=== PATIENT | male | born 1960 | race Caucasian/White ===

== ENCOUNTER → 2016-10-17 | Outpatient (CLI) | payer OTHER | LOC: BMCIMAGING 15:54 | PROVIDERS: ATTEND Internal Medicine | DX: R50.9 Fever, unspecified (principal); R11.10 Vomiting, unspecified; K76.0 Fatty (change of) liver, not elsewhere classified ==

== ENCOUNTER 2016-11-10 18:51 | Emergency (ER) | payer OTHER ==
[2016-11-10 18:55] VITALS: RESP 16; TEMP 98.1
--- NOTE | 2016-11-10 19:38 | EDPHY ---
H & P Time Seen by Provider: 11/10/16 19:30 HPI/ROS: CHIEF COMPLAINT: Left toe pain HISTORY OF PRESENT ILLNESS: Swelling for the last 2 weeks with a callus on the top and an abrasion laterally. Pain and swelling over the last 24 hours. REVIEW OF SYSTEMS: No fever or chills and no known trauma PAST MEDICAL HISTORY: Negative for diabetes. Intracranial hemorrhage, depression, hypertension, perforated ulcer. History of alcoholism. Social history: Primary care is Dr. Stallings General Appearance: Alert and conversant, cooperative. Left 2nd toe has redness swelling and tenderness to palpation. No gangrene or d dark discoloration or bruising. No ecchymosis or blister or eschar. No crepitus. He can move it and has preserved sensation and capillary refill. No proximal redness or lymphangitis. Emergency Department course/MDM: Plan for x-ray, hard-soled shoe. Likely localized cellulitis. Bactrim, Keflex, primary care follow-up. Smoking Status: Never smoked Constitutional: Initial Vital Signs Temperature (C) 36.7 C 11/10/16 18:54 Heart Rate 87 11/10/16 18:54 Respiratory Rate 16 11/10/16 18:54 Blood Pressure 147/88 H 11/10/16 18:54 O2 Sat (%) 95 11/10/16 18:54 O2 Delivery Mode Room Air Allergies/Adverse Reactions: No Known Allergies Allergy (Verified 11/10/16 18:53) Home Medications: Medication Instructions Recorded Citalopram [CeleXA 20 MG] 20 mg PO DAILY 11/29/13 buPROPion SR [Wellbutrin 150mg SR 150 mg PO 0900,1500 11/29/13 (*)] Cephalexin [Keflex] 500 mg PO QID #40 cap 11/10/16 Sulfamethox/Tmp 800/160 mg 1 tab PO BID@1000,2200 #20 tab 11/10/16 [Bactrim Ds] MDM/Departure - MDM Imaging Results: X-ray reviewed with Dr. Earl Scales, no gas or fracture. Imaging: I viewed and interpreted images myself - Depart Disposition: Home, Routine, Self-Care Clinical Impression: Cellulitis of toe of left foot Condition: Good Instructions: Cellulitis (ED) Additional Instructions: Follow-up with [facility] with your doctor or orthopedist next week for recheck. Prescriptions: Cephalexin [Keflex] 500 mg PO QID #40 cap Sulfamethox/Tmp 800/160 mg [Bactrim Ds] 1 tab PO BID@1000,2200 #20 tab Referrals: Nikunj Stallings MD [[facility] [place] - As per Instructions Mat Wilcox MD [Medical Doctor] - As per Instructions
[2016-11-10] MEDS ORDERED: CEPHALEXIN 500MG PREPACK#4 BTL TAKEHOME ONE (20:02)
[2016-11-10] MEDS ORDERED: SULFAMET/TMP DS PREPACK#2 BTL TAKEHOME ONE (20:02)
[2016-11-10 20:17] VITALS: BP 135/93; PULSE 73; O2SAT 90
== END 2016-11-10 20:17 | disposition home or self-care (01) ==
DX: L03.032 Cellulitis of left toe (principal)

== ENCOUNTER 2017-01-15 08:53 | Inpatient (IN) | payer OTHER ==
--- NOTE | 2017-01-15 09:02 | EDPHY ---
H & P Stated Complaint: wd seizure Time Seen by Provider: 01/15/17 08:53 HPI/ROS: CHIEF COMPLAINT: Seizure HISTORY OF PRESENT ILLNESS: The patient arrives by paramedics after a reported witnessed seizure at home. The patient has no recollection of these events. In the emergency department the patient is postictal and unable to provide much history. The patient does have a history of chronic alcoholism. The patient tells me he has 5-6 drinks a day. He is unaware if he has had a prior alcohol withdrawal seizure. The patient does endorse symptoms of tremor and confusion. He denies recent illness such as fever cough or congestion. The patient reports no recent medication changes. He does have prescriptions for both Wellbutrin and citalopram. He states he has been on these medications for some time. The patient states he is not cut back on his alcohol consumption recently. The patient states he is also not interested in sobriety. REVIEW OF SYSTEMS: A comprehensive 10 point review of systems is otherwise negative aside from elements mentioned in the history of present illness. Source: Patient Exam Limitations: No limitations - Personal History Current Tetanus/Diphtheria Vaccine: Unsure Current Tetanus Diphtheria and Acellular Pertussis (TDAP): Unsure Tetanus Vaccine Date: unknown - Medical/Surgical History Hx Asthma: No Hx Chronic Respiratory Disease: No Hx Diabetes: No Hx Cardiac Disease: No Hx Renal Disease: No Hx Cirrhosis: No Hx Alcoholism: No Hx HIV/AIDS: No Hx Splenectomy or Spleen Trauma: No Other PMH: alcoholism, intracranial hemorrhage, Depression,HTN. Perforated intestinal ulcer - Social History Smoking Status: Never smoked - Physical Exam Exam: General Appearance: Alert, tremulous, slightly confused and postictal Eyes: Pupils equal and round no pallor or injection ENT, Mouth: Mucous membranes moist Respiratory: There are no retractions, lungs are clear to auscultation Cardiovascular: Tachycardic Gastrointestinal: Abdomen is soft and nontender, no masses, bowel sounds normal Neurological: Alert and oriented x2, 5/5 strength all 4 extremities, patient is tremulous Skin: Warm and dry, no rashes Musculoskeletal: Neck is supple nontender Extremities: symmetrical, full range of motion Constitutional: Initial Vital Signs Temperature (C) 36.5 C 01/15/17 08:59 Heart Rate 74 01/15/17 08:59 Respiratory Rate 16 01/15/17 08:59 Blood Pressure 148/86 H 01/15/17 08:59 O2 Sat (%) 99 01/15/17 08:59 O2 Delivery Mode Nasal Cannula O2 (L/minute) 2 Allergies/Adverse Reactions: No Known Allergies Allergy (Verified 11/10/16 18:53) Home Medications: Medication Instructions Recorded Citalopram [CeleXA 20 MG] 20 mg PO DAILY 11/29/13 buPROPion SR [Wellbutrin 150mg SR 150 mg PO BID 11/29/13 (*)] Pramipexole Di-HCl [Mirapex 0.125 0.125 mg PO HS 01/15/17 mg (*)] Medical Decision Making ED Course/Re-evaluation: The patient presents to the ED after alcohol withdrawal seizure. The patient reportedly did cut back on his alcohol consumption yesterday. The patient received 2 mg of IV Ativan. The patient received 1 L of normal saline. The patient's laboratory studies are reviewed. I re-evaluated the patient at 10:30 a.m.: The patient continues to have fairly significant tremor and signs of ongoing alcohol withdrawal. He received an additional 1 mg dose of IV Ativan. The patient will require admission to the hospital for observation of his alcohol withdrawal. Consultation was made with the hospitalist service at 10:45 a.m.. The patient will be admitted to the step-down unit by Dr. Gaytan Differential Diagnosis: Differential diagnosis considered includes alcohol withdrawal, metabolic abnormality, dehydration, alcohol withdrawal seizure - Data Points Laboratory Results: Laboratory Results 01/15/17 09:15 01/15/17 09:15 01/15/17 01/15/17 01/15/17 09:15 09:15 09:15 WBC 8.15 10^3/uL 10^3/uL (3.80-9.50) RBC 4.45 10^6/uL 10^6/uL (4.40-6.38) Hgb 14.2 g/dL g/dL (13.7-17.5) Hct 40.7 % % (40.0-51.0) MCV 91.5 fL fL (81.5-99.8) MCH 31.9 pg pg (27.9-34.1) MCHC 34.9 g/dL g/dL (32.4-36.7) RDW 12.7 % % (11.5-15.2) Plt Count 192 10^3/uL 10^3/uL (150-400) MPV 9.8 fL fL (8.7-11.7) Neut % (Auto) 66.4 % % (39.3-74.2) Lymph % (Auto) 20.6 % % (15.0-45.0) [place] % (Auto) 10.6 % % (4.5-13.0) Eos % (Auto) 0.4 % L % (0.6-7.6) Baso % (Auto) 1.1 % % (0.3-1.7) Nucleat RBC Rel Count 0.0 % % (0.0-0.2) Absolute Neuts (auto) 5.42 10^3/uL 10^3/uL (1.70-6.50) Absolute Lymphs (auto) 1.68 10^3/uL 10^3/uL (1.00-3.00) Absolute Monos (auto) 0.86 10^3/uL H 10^3/uL (0.30-0.80) Absolute Eos (auto) 0.03 10^3/uL 10^3/uL (0.03-0.40) Absolute Basos (auto) 0.09 10^3/uL 10^3/uL (0.02-0.10) Absolute Nucleated RBC 0.00 10^3/uL 10^3/uL (0-0.01) Immature Gran % 0.9 % % (0.0-1.1) Immature Gran # 0.07 10^3/uL 10^3/uL (0.00-0.10) Sodium 138 mEq/L mEq/L (134-144) Potassium 4.4 mEq/L mEq/L (3.5-5.2) Chloride 102 mEq/L mEq/L (97-110) Carbon Dioxide 22 mEq/l mEq/l (22-31) Anion Gap 14 mEq/L mEq/L (8-16) BUN 8 mg/dL mg/dL (7-23) Creatinine 1.0 mg/dL mg/dL (0.7-1.3) Estimated GFR > 60 Glucose 184 mg/dL H mg/dL (70-100) Calcium 8.8 mg/dL mg/dL (8.5-10.4) Total Bilirubin 0.8 mg/dL mg/dL (0.1-1.4) Conjugated Bilirubin 0.4 mg/dL mg/dL (0.0-0.5) Unconjugated Bilirubin 0.4 mg/dL mg/dL (0.0-1.1) AST 192 IU/L H IU/L (17-59) ALT 100 IU/L H IU/L (21-72) Alkaline Phosphatase 147 IU/L H IU/L (38-126) Total Protein 7.3 g/dL g/dL (6.3-8.2) Albumin 3.8 g/dL g/dL (3.5-5.0) Lipase 97.0 IU/L IU/L (23-300) Ethyl Alcohol < 10 mg/dL mg/dL (0-10) Medications Given: Discontinued Medications Sodium Chloride (Ns) 1,000 mls @ 0 mls/hr IV EDNOW ONE; Wide Open PRN Reason: Protocol Stop: 01/15/17 09:04 Last Admin: 01/15/17 09:08 Dose: 1,000 mls Lorazepam (Ativan Injection) 1 mg IVP EDNOW ONE Stop: 01/15/17 09:04 Last Admin: 01/15/17 09:06 Dose: 1 mg Lorazepam (Ativan Injection) 2 mg IVP EDNOW ONE Stop: 01/15/17 10:49 Last Admin: 01/15/17 10:57 Dose: 2 mg Departure - Departure Disposition: [facility] Inpatient Acute Clinical Impression: Alcohol withdrawal Qualifiers: Complication of substance-induced condition: uncomplicated Qualified Code(s): F10.230 - Alcohol dependence with withdrawal, uncomplicated Withdrawal seizures Qualifiers: Complication of substance-induced condition: uncomplicated Qualified Code(s): F19.230 - Other psychoactive substance dependence with withdrawal, uncomplicated Condition: Fair
[2017-01-15] MEDS ORDERED: LORazepam 2 MG/ML INJ IVP ONE ×2 (09:03→10:48)
[2017-01-15] MEDS ORDERED: NS 1,000 ML IV ONE ×2 (09:03→11:54)
[2017-01-15 09:25] LABS: % IMMATURE GRANULYOCYTES 0.9 % (0.0-1.1); ABSOLUTE IMMATURE GRANULOCYTES 0.07 10^3/uL (0.00-0.10); ADD DIFF? NO; ADD MORPH? NO; ADD SCAN? NO; ATYPICAL LYMPHOCYTE FLAG 10 (0-99); FRAGMENT RBC FLAG 0 (0-99); HEMATOCRIT 40.7 % (40.0-51.0); HEMOGLOBIN 14.2 g/dL (13.7-17.5); LEFT SHIFT FLG 10 (0-99); LIPEMIA HEMOLYSIS FLAG 90 (0-99); MEAN CELL HEMOGLOBIN 31.9 pg (27.9-34.1); MEAN CELL HEMOGLOBIN CONCENTR. 34.9 g/dL (32.4-36.7); MEAN CELL VOLUME 91.5 fL (81.5-99.8); MEAN PLATELET VOLUME 9.8 fL (8.7-11.7); PLATELET CLUMPS FLAG 0 (0-99); PLATELET COUNT 192 10^3/uL (150-400); RED BLOOD CELL COUNT 4.45 10^6/uL (4.40-6.38); RED CELL DISTRIBUTION WIDTH 12.7 % (11.5-15.2)
[2017-01-15 09:40] LABS: ALANINE AMINOTRANSFERASE 100 IU/L (21-72); ALBUMIN 3.8 g/dL (3.5-5.0); ALKALINE PHOSPHATASE 147 IU/L (38-126); ANION GAP 14 mEq/L (8-16); ASPARTATE AMINOTRANSFERASE 192 IU/L (17-59); BILIRUBIN,TOTAL 0.8 mg/dL (0.1-1.4); BILIRUBIN-CONJUGATED 0.4 mg/dL (0.0-0.5); BILIRUBIN-UNCONJUGATED 0.4 mg/dL (0.0-1.1); CALCIUM 8.8 mg/dL (8.5-10.4); CARBON DIOXIDE 22 mEq/l (22-31); CHLORIDE 102 mEq/L (97-110); GLOMERULAR FILTRATION RATE > 60; GLUCOSE 184 mg/dL (70-100); POTASSIUM 4.4 mEq/L (3.5-5.2); SODIUM 138 mEq/L (134-144); TOTAL PROTEIN 7.3 g/dL (6.3-8.2)
[2017-01-15 10:12] LABS: ETHANOL SERUM < 10 mg/dL (0-10)
[2017-01-15] MEDS ORDERED: ONDANSETRON DISINTEGRATING 4 MG TAB PO PRN (11:54)
[2017-01-15] MEDS ORDERED: ONDANSETRON 4 MG/2 ML VIAL IVP PRN (11:54)
[2017-01-15] MEDS ORDERED: chlordiazePOXIDE 25 MG CAP ONE (12:20)
[2017-01-15] MEDS: chlordiazePOXIDE 25 MG CAP PO SCH ×3 (12:23→20:02)
[2017-01-15] MEDS ORDERED: LORazepam 2 MG/ML INJ ONE (12:50)
[2017-01-15] MEDS: LORazepam 2 MG/ML INJ IVP PRN ×2 (12:55→21:13)
--- NOTE | 2017-01-15 13:37 | GHP ---
[f rep st] HISTORY AND PHYSICAL DATE OF ADMISSION: 01/15/2017 CHIEF COMPLAINT: Seizure. HISTORY OF PRESENT ILLNESS: A 56-year-old male with a history of alcohol abuse and depression who presents from home after a witnessed seizure by his and daughter. The patient does not recall the episode himself. The patient reports alcohol intake around 7 beers a day, does not recall if he took that same amount of alcohol in the 24 hours preceding. Denies any previous history of alcohol withdrawal seizures or seizures. Denies any hallucinations with withdrawal in the past, but has had serious withdrawal. Currently denies chest pain, shortness of breath. He is having high thoracic back pain. No pleuritic chest pain. No nausea. No vomiting. No diarrhea. No dysuria, hematuria, or lower extremity edema. Does not recall the episode of a seizure but was reported to have not fallen during the event. Denies any headache, vision changes, dysphagia, or subjective fevers or chills. PAST MEDICAL HISTORY: 1. Alcohol abuse with history of withdrawal in the past. 2. Traumatic fall during intoxication with an intracranial hemorrhage. 3. Perforated duodenal ulcer. 4. Depression. 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 Lives at home with his . Denies tobacco or illicit drugs. FAMILY HISTORY: Unknown; he is adopted. REVIEW OF SYSTEMS: Ten-point review of systems is negative with the exception of that reported in the HPI. PHYSICAL EXAMINATION: VITAL SIGNS: Blood pressure 151/92, heart rate 74, respiratory rate 16, 100% on 2 L, and 36.5. GENERAL: This is a middle-aged male in no acute distress. HEENT: Notable for dry mucous membranes. Eye exam is negative for any icterus. CARDIAC: The patient is regular rate and rhythm. No murmurs, gallops, or rubs. PULMONARY: Good respiratory effort. Clear to auscultation bilaterally. GASTROINTESTINAL: Positive bowel sounds. Abdomen is soft and nontender. MUSCULOSKELETAL: The patient has point tenderness in his high thoracic spine. No lower extremity edema is appreciated. His strength is intact throughout. NEUROLOGIC: The patient has tremor and tongue fasciculations on examination. PSYCHIATRIC: He is somnolent but cooperative. SKIN: Negative for any rashes. DATA: White count is 8.1, hematocrit 40.7, platelets of 192. AST of 192, ALT of 100, alk phos of 147. Blood glucose of 180. Ethyl alcohol measured at less than 10 in the emergency department. Creatinine is 1.0. Telemetry, which I personally reviewed and interpreted, shows sinus rhythm with normal rates in the 70s to 80s. ASSESSMENT AND PLAN: This is a 56-year-old male with a witnessed seizure. 1. Acute seizure: Based on his history, presumed to be alcohol withdrawal related, as his ethyl alcohol level is less than 10 during evaluation in the emergency department. We will treat the patient's acute withdrawal aggressively with seizure assessments and scheduled benzodiazepines. I do not think we need a neurology consult or the initiation of any antiepileptic at this time. Will follow his neurologic course in the ICU. 2. Acute alcohol withdrawal. The patient is quite tremulous and I think at the beginning of what will be a difficult withdrawal hospitalization. Have scheduled Librium, written for ganesh Romo, and have placed a Precedex order, as I suspect he will need it soon. The patient has gone through AA in the past and may be interested in resources once he is medically stable. Have scheduled Librium t.i.d. to avoid any ongoing seizure activity from withdrawal. 3. Alcohol abuse. As above. We will additionally treat with thiamine supplementation, CIWA monitoring and resources after the patient's through the worst of his withdrawal stay. 4. Alcoholic hepatitis. The patient has a small bump in his liver function tests, suspect related to acute alcohol toxicity. Can follow his liver function tests moving forward. INR last checked has been less than 1; will not check it at this time, as my suspicion is low that he has a highly elevated discriminant function. 5. Thoracic back pain - will check thoracic films to rule out compression fracture. 6. Prophylaxis with Lovenox. 7. Diet: Regular, unless his withdrawal progresses and he is unable to protect his airway. DISPOSITION: I expect greater than 2 midnights. I have discussed the case with the emergency room physician. The patient will be triaged to the intensive care unit for treatment of alcohol withdrawal. /[id number]/MODL MTDD
[2017-01-15] MEDS: DEXMEDETOMIDINE HCL 400 MCG in NS 100 ML IV SCH ×2 (14:31→22:07)
[2017-01-15] MEDS: buPROPion SR 150 MG TAB PO SCH (20:02)
[2017-01-16 03:59] LABS: % IMMATURE GRANULYOCYTES 0.3 % (0.0-1.1); ABSOLUTE IMMATURE GRANULOCYTES 0.02 10^3/uL (0.00-0.10); ADD DIFF? NO; ADD MORPH? NO; ADD SCAN? NO; ATYPICAL LYMPHOCYTE FLAG 0 (0-99); FRAGMENT RBC FLAG 20 (0-99); HEMATOCRIT 41.5 % (40.0-51.0); HEMOGLOBIN 14.2 g/dL (13.7-17.5); LEFT SHIFT FLG 10 (0-99); LIPEMIA HEMOLYSIS FLAG 90 (0-99); MEAN CELL HEMOGLOBIN 32.1 pg (27.9-34.1); MEAN CELL HEMOGLOBIN CONCENTR. 34.2 g/dL (32.4-36.7); MEAN CELL VOLUME 93.7 fL (81.5-99.8); MEAN PLATELET VOLUME 9.9 fL (8.7-11.7); PLATELET CLUMPS FLAG 0 (0-99); PLATELET COUNT 182 10^3/uL (150-400); RED BLOOD CELL COUNT 4.43 10^6/uL (4.40-6.38); RED CELL DISTRIBUTION WIDTH 12.8 % (11.5-15.2)
[2017-01-16 04:14] LABS: ANION GAP 10 mEq/L (8-16); CARBON DIOXIDE 26 mEq/l (22-31); CHLORIDE 104 mEq/L (97-110); CREATININE 0.9 mg/dL (0.7-1.3); GLOMERULAR FILTRATION RATE > 60; GLUCOSE 130 mg/dL (70-100); MAGNESIUM 1.7 mg/dL (1.6-2.3); POTASSIUM 3.6 mEq/L (3.5-5.2); SODIUM 140 mEq/L (134-144)
[2017-01-16] MEDS: DEXMEDETOMIDINE HCL 400 MCG in NS 100 ML IV SCH ×2 (07:56→21:06)
--- NOTE | 2017-01-16 10:41 | WOCRNPDOC ---
WOCRN Advanced Assessment Note - Skin Integrity Problem, Advanced Assess Right Medial Foot Dressing Type: Open to Air Exudate Amount: None Wound Bed Constitution: Dried Exudate Site Measurement - Head-to-Toe Length X Width X Depth (cm): 1x1x0.1 Skin Integrity Problem Comment: Partial thickness Category 3 skin tear. No concerns. Wound care will sign off.
[2017-01-16] MEDS ORDERED: Herbals/Supplements -Info Only PO SCH (11:00)
[2017-01-16] MEDS: chlordiazePOXIDE 25 MG CAP PO SCH ×3 (11:08→20:47)
[2017-01-16] MEDS: buPROPion SR 150 MG TAB PO SCH ×2 (11:08→20:47)
[2017-01-16] MEDS: MULTIVITAMINS 1 EACH TAB PO SCH (11:08)
[2017-01-16] MEDS: CITALOPRAM 20 MG TAB PO SCH (11:08)
[2017-01-16] MEDS: ENOXAPARIN 40 MG/0.4 ML SYR SC SCH (11:14)
[2017-01-16] MEDS: LIDOCAINE 5% 1 EA PATCH TD SCH (11:14)
--- NOTE | 2017-01-16 16:01 | HOSPPROG ---
Hospitalist Progress Note Assessment/Plan: assessment: 56-year-old male presents with acute alcohol withdrawal seizure Plan: 1. alcohol withdrawal seizure. Acute, witnessed by , placing him at high risk for recurrent seizure if left untreated -hold on antiepileptic and treat for acute alcohol withdrawal -if experiences recurrent seizures, initiate antiepileptic and consult with Neurology - placed on scheduled benzodiazepine given his high risk of recurrence and taper during this hospitalization -continue seizure precautions 2. acute alcohol withdrawal. Evidence by tremulousness, disorientation, hallucination, alcohol level negative on presentation -patient has desire to maintain sobriety - counseled the patient that the sobriety would be a good choice for him at this juncture, will continue to support him in this endeavor - discussed with Larissa Napier, patient is interested in counseling with her tomorrow -continue on scheduled Librium, taper to twice daily tomorrow, then once daily thereafter -continue as needed Ativan for breakthrough -wean off of Precedex drip, currently managing patient's anxiety well 3. alcoholic hepatitis. Acute, abdominal pain is subsiding, monitor transaminitis 4. compression fracture. suspect chronic, place Lidoderm patch and use as needed nonsteroidal anti-inflammatory medication Diet. Regular Prophylaxis. High risk patient given mobility, Lovenox 40 Code. Full Disposition. Anticipated discharge uncertain this time, continuing to require ICU level of care given Precedex drip Subjective: counseled patient regarding alcohol cessation, reoriented him to his surroundings Objective: Vital Signs Temp Pulse Resp BP Pulse Ox 36.8 C 61 12 105/69 99 01/16/17 08:00 01/16/17 15:00 01/16/17 15:00 01/16/17 14:00 01/16/17 15:00 Laboratory Results 01/16/17 03:45 01/16/17 03:45 01/15/17 01/16/17 01/17/17 05:59 05:59 05:59 Intake Total 2797 Output Total 8345 Balance -448 - Time Spent With Patient Time Spent with Patient: greater than 35 minutes Time Spent with Patient: Greater than 35 minutes spent on this patients care, greater than 50% of time spent counseling, educating, and coordinating care regarding the above mentioned plan. - Physical Exam Constitutional: not in pain, chronically ill appearing, No no apparent distress ( mildly distressed), No uncomfortable Cardiovascular: No systolic murmur, No irregularly irregular, No tachycardia, No edema Respiratory: no respiratory distress, no rales or rhonchi, clear to auscultation Gastrointestinal: normoactive bowel sounds, soft, non-tender abdomen ( in right upper quadrant), no palpable masses, No distension Skin: other ( some scattered abrasions) Neurologic: AAOx3, sensation intact bilaterally, No asterixes ( tremulousness bilateral upper extremities) Psychiatric: anxious, other ( concentration 7/7, naming 3/3), No agitated ICD10 Worksheet Patient Problems: Problems Problem Status Onset Perforation of duodenal ulcer Acute Intracranial hemorrhage Acute Alcohol intoxication Acute Alcoholism Acute Alcohol withdrawal Acute Withdrawal seizures Acute
[2017-01-16] MEDS: PATCH REMOVAL 1 EA PATCH TD SCH (20:48)
[2017-01-16] MEDS: LORazepam 2 MG/ML INJ IVP PRN (20:53)
[2017-01-16] MEDS: HALOPERIDOL LACT 5 MG/ML INJ IVP PRN (21:24)
[2017-01-17] MEDS: LORazepam 2 MG/ML INJ IVP PRN ×5 (00:05→23:23)
[2017-01-17] MEDS: DEXMEDETOMIDINE HCL 400 MCG in NS 100 ML IV SCH ×4 (02:04→22:11)
[2017-01-17 05:33] LABS: % IMMATURE GRANULYOCYTES 0.6 % (0.0-1.1); ABSOLUTE IMMATURE GRANULOCYTES 0.05 10^3/uL (0.00-0.10); ADD DIFF? NO; ADD MORPH? NO; ADD SCAN? NO; ATYPICAL LYMPHOCYTE FLAG 0 (0-99); FRAGMENT RBC FLAG 0 (0-99); HEMATOCRIT 40.4 % (40.0-51.0); HEMOGLOBIN 13.7 g/dL (13.7-17.5); LEFT SHIFT FLG 10 (0-99); LIPEMIA HEMOLYSIS FLAG 90 (0-99); MEAN CELL HEMOGLOBIN 31.8 pg (27.9-34.1); MEAN CELL HEMOGLOBIN CONCENTR. 33.9 g/dL (32.4-36.7); MEAN CELL VOLUME 93.7 fL (81.5-99.8); MEAN PLATELET VOLUME 9.9 fL (8.7-11.7); PLATELET CLUMPS FLAG 20 (0-99); PLATELET COUNT 155 10^3/uL (150-400); RED BLOOD CELL COUNT 4.31 10^6/uL (4.40-6.38); RED CELL DISTRIBUTION WIDTH 12.7 % (11.5-15.2)
[2017-01-17 05:54] LABS: ANION GAP 11 mEq/L (8-16); CALCIUM 8.6 mg/dL (8.5-10.4); CARBON DIOXIDE 26 mEq/l (22-31); CHLORIDE 105 mEq/L (97-110); CREATININE 0.9 mg/dL (0.7-1.3); GLOMERULAR FILTRATION RATE > 60; GLUCOSE 112 mg/dL (70-100); MAGNESIUM 1.7 mg/dL (1.6-2.3); POTASSIUM 3.6 mEq/L (3.5-5.2); SODIUM 142 mEq/L (134-144)
[2017-01-17] MEDS: ENOXAPARIN 40 MG/0.4 ML SYR SC SCH (08:20)
[2017-01-17] MEDS: MULTIVITAMINS 1 EACH TAB PO SCH (08:20)
[2017-01-17] MEDS: buPROPion SR 150 MG TAB PO SCH ×2 (08:20→20:20)
[2017-01-17] MEDS: CITALOPRAM 20 MG TAB PO SCH (08:20)
[2017-01-17] MEDS: chlordiazePOXIDE 25 MG CAP PO SCH ×3 (08:20→21:04)
[2017-01-17] MEDS: LIDOCAINE 5% 1 EA PATCH TD SCH (08:21)
[2017-01-17] MEDS ORDERED: chlordiazePOXIDE 25 MG CAP PO SCH (09:00)
--- NOTE | 2017-01-17 16:08 | HOSPPROG ---
Hospitalist Progress Note Assessment/Plan: assessment: 56-year-old male presents with acute alcohol withdrawal seizure Plan: 1. alcohol withdrawal seizure. Acute, witnessed by EMT, placing him at high risk for recurrent seizure if left untreated -hold on antiepileptic and treat for acute alcohol withdrawal -if experiences recurrent seizures, initiate antiepileptic and consult with Neurology -placed on scheduled librium given his high risk of recurrence and taper during this hospitalization -continue seizure precautions 2. acute alcohol withdrawal. Evidence by tremulousness, disorientation, hallucination, alcohol level negative on presentation -patient has desire to maintain sobriety -patient's disorientation/somnolence is worse this AM -continue on scheduled Librium tid, taper to twice daily tomorrow, then once daily thereafter -continue as needed Ativan for breakthrough -continues to require precedex for safety -Larissa Napier counseled -I also counseled extensively, and attempted to asst her understanding of EtOH withdraw pathology, as she is having a difficult time processing her 's ailment, having a difficult time reconciling that his current state is not her fault, etc. 3. alcoholic hepatitis. Acute, abdominal pain subsided, monitor transaminitis 4. compression fracture. suspect chronic, place Lidoderm patch and use as needed nonsteroidal anti-inflammatory medication Diet. Regular Prophylaxis. High risk patient given mobility, Lovenox 40 Code. Full Disposition. Anticipated discharge uncertain this time, continuing to require ICU level of care given Precedex drip Subjective: patient is more disoriented and somewhat somnolent this morning having difficulty following commands Objective: Vital Signs Temp Pulse Resp BP Pulse Ox 36.6 C 66 19 102/65 98 01/17/17 11:57 01/17/17 15:00 01/17/17 14:00 01/17/17 15:00 01/17/17 15:00 Laboratory Results 01/17/17 05:24 01/17/17 05:24 01/16/17 01/17/17 01/18/17 05:59 05:59 05:59 Intake Total 2797 1719.8 1000 Output Total 3245 1575 Balance -448 144.8 1000 - Time Spent With Patient Time Spent with Patient: greater than 35 minutes Time Spent with Patient: Greater than 35 minutes spent on this patients care, greater than 50% of time spent counseling, educating, and coordinating care regarding the above mentioned plan. - Physical Exam Constitutional: uncomfortable, No no apparent distress ( mildly distress) Cardiovascular: No systolic murmur, No tachycardia, No edema Respiratory: other ( poor inspiratory and expiratory air movement, poor effort) , No expiratory wheeze, No inspiratory crackles, No bronchial breath sounds Gastrointestinal: normoactive bowel sounds, soft, non-tender abdomen, no palpable masses, No distension Neurologic: other ( visibly tremulous, alert awake oriented to person only) Psychiatric: encephalopathic, anxious, flat affect, other ( easily distractible , but redirectable), No agitated ICD10 Worksheet Patient Problems: Problems Problem Status Onset Perforation of duodenal ulcer Acute Intracranial hemorrhage Acute Alcohol intoxication Acute Alcoholism Acute Alcohol withdrawal Acute Withdrawal seizures Acute
--- NOTE | 2017-01-17 17:39 | GCON ---
[f rep st] CONSULTATION PULMONARY/CRITICAL CARE CONSULTATION DATE OF CONSULTATION: 01/17/2017 REFERRING PHYSICIAN: Nic Maria MD REASON FOR REFERRAL: Evaluation and management of seizure, alcohol withdrawal, and hepatitis. HISTORY: The patient is a 56-year-old male with a history of alcohol abuse and depression who appar ently tried to stop drinking alcohol himself at home. He had a seizure on 01/15 witnessed by his wi fe and daughter and was brought into the emergency department where he was admitted to the hospital with presumed alcohol withdrawal seizure. Since then, he has had prominent symptoms of withdrawal, with CIWA scores greater than 20 at times. He currently is resting quite comfortably and denies any pain, agitation, or hallucinations. PAST MEDICAL HISTORY: 1. Long history of alcohol abuse with significant DTs in the past. 2. History of intracranial hemorrhage due to a fall while intoxicated. 3. Perforated duodenal ulcer. 4. Depression. MEDICATIONS: 1. Wellbutrin. 2. Celexa. ALLERGIES: None. 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 Lives with his . He denies tob acco. FAMILY HISTORY: Unknown. The patient is adopted. REVIEW OF SYSTEMS: A 10-point review of systems adds nothing to the history of present illness. PHYSICAL EXAMINATION: GENERAL: The patient is somnolent but arousable and answers simple questions appropriately. Blood pressure is 148/94 with a heart rate of 68. He is afebrile. Oxygen saturati ons are 98% on room air. HEENT: Normocephalic and atraumatic. No icterus. NECK: No adenopathy. Trachea is midline. CHEST: Clear to auscultation. CARDIAC: Regular rate and rhythm without murm ur. ABDOMEN: Soft, nontender. Bowel sounds are present. EXTREMITIES: No clubbing, cyanosis, or edema. NEURO: The patient is somnolent but arousable. He has a very mild tremor. His thought con tent appears normal, although he is not very verbal. He has no sensorimotor weakness. LABORATORY: Hemoglobin is 13.7. AST was 192, and ALT was 100 on admission. This has not been repe ated. Potassium is 3.6. Alcohol level was less than 10 at the time of admission. An x-ray of the thoracic spine shows an age indeterminate T12 compression fracture with minimal depression in the michel perior endplate. This is new since 2013. ASSESSMENT: 1. Acute alcohol withdrawal seizure. This was witnessed. The patient is currently being managed w ith Librium and Precedex, and is quite calm, although he was very agitated earlier today. 2. Acute alcohol withdrawal. 3. Hepatitis. This is likely acute on chronic alcoholic hepatitis. He denies pain. 4. Compression fracture. This is a partial compression fracture with preservation, for the most pa rt, of vertebral height. He has had some pain related to this. RECOMMENDATIONS: 1. Continue Precedex and scheduled p.o. Librium for withdrawal. 2. Continue Lovenox. 3. Haldol can be used for hallucinations. 4. Lidoderm patch and NSAIDs for back pain. I would avoid narcotics. 5. Repeat LFTs. /[id number]/MODL
[2017-01-17] MEDS: HALOPERIDOL LACT 5 MG/ML INJ IVP PRN (20:20)
[2017-01-17] MEDS: PATCH REMOVAL 1 EA PATCH TD SCH (21:04)
[2017-01-18] MEDS: hydrALAZINE 20 MG/ML VIAL IVP PRN (02:19)
[2017-01-18] MEDS: DEXMEDETOMIDINE HCL 400 MCG in NS 100 ML IV SCH ×2 (02:37→07:55)
[2017-01-18] MEDS: HALOPERIDOL LACT 5 MG/ML INJ IVP PRN ×4 (03:06→20:28)
[2017-01-18] MEDS: LORazepam 2 MG/ML INJ IVP PRN ×2 (04:12→23:21)
[2017-01-18 05:44] LABS: % IMMATURE GRANULYOCYTES 0.8 % (0.0-1.1); ABSOLUTE IMMATURE GRANULOCYTES 0.08 10^3/uL (0.00-0.10); ADD DIFF? NO; ADD MORPH? NO; ADD SCAN? NO; ATYPICAL LYMPHOCYTE FLAG 0 (0-99); FRAGMENT RBC FLAG 0 (0-99); HEMATOCRIT 43.8 % (40.0-51.0); HEMOGLOBIN 14.9 g/dL (13.7-17.5); LEFT SHIFT FLG 10 (0-99); LIPEMIA HEMOLYSIS FLAG 90 (0-99); MEAN CELL HEMOGLOBIN 31.4 pg (27.9-34.1); MEAN CELL VOLUME 92.4 fL (81.5-99.8); PLATELET CLUMPS FLAG 0 (0-99); PLATELET COUNT 177 10^3/uL (150-400); RED BLOOD CELL COUNT 4.74 10^6/uL (4.40-6.38); RED CELL DISTRIBUTION WIDTH 12.6 % (11.5-15.2)
[2017-01-18 06:03] LABS: ALANINE AMINOTRANSFERASE 60 IU/L (21-72); ALBUMIN 3.8 g/dL (3.5-5.0); ALKALINE PHOSPHATASE 96 IU/L (38-126); ANION GAP 15 mEq/L (8-16); ASPARTATE AMINOTRANSFERASE 55 IU/L (17-59); BILIRUBIN,TOTAL 0.9 mg/dL (0.1-1.4); BILIRUBIN-CONJUGATED 0.5 mg/dL (0.0-0.5); BILIRUBIN-UNCONJUGATED 0.4 mg/dL (0.0-1.1); CARBON DIOXIDE 24 mEq/l (22-31); CHLORIDE 102 mEq/L (97-110); CREATININE 0.8 mg/dL (0.7-1.3); GLOMERULAR FILTRATION RATE > 60; GLUCOSE 112 mg/dL (70-100); MAGNESIUM 1.5 mg/dL (1.6-2.3); POTASSIUM 4.2 mEq/L (3.5-5.2); SODIUM 141 mEq/L (134-144); TOTAL PROTEIN 7.5 g/dL (6.3-8.2)
[2017-01-18] MEDS: ENOXAPARIN 40 MG/0.4 ML SYR SC SCH (07:47)
[2017-01-18] MEDS: THIAMINE HCL 100 MG TAB PO SCH (07:47)
[2017-01-18] MEDS: MULTIVITAMINS 1 EACH TAB PO SCH (07:47)
[2017-01-18] MEDS: LIDOCAINE 5% 1 EA PATCH TD SCH (07:47)
[2017-01-18] MEDS: CITALOPRAM 20 MG TAB PO SCH (07:47)
[2017-01-18] MEDS: buPROPion SR 150 MG TAB PO SCH ×2 (07:47→20:29)
[2017-01-18] MEDS: chlordiazePOXIDE 25 MG CAP PO SCH (07:47)
[2017-01-18] MEDS: NAPROXEN SODIUM 220 MG TAB PO PRN ×2 (08:06→20:28)
--- NOTE | 2017-01-18 12:55 | PDINTPN ---
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 He's fairly sedated with PO scheduled Librium. Hepatitis: Likely EtOH induced. Resolved. Sz: No further seizures. Plan: Reduce Librium scheduled dose. Try Haldol for hallucinations. 01/18/17 12:58 Subjective: Sedated but intermittently agitated, denies pain Objective: Vital Signs Temp Pulse Resp BP Pulse Ox 36.6 C 60 12 120/60 94 01/17/17 20:00 01/18/17 09:52 01/18/17 09:52 01/18/17 09:52 01/18/17 09:52 Laboratory Results 01/18/17 05:30 01/18/17 05:30 01/17/17 01/18/17 01/19/17 05:59 05:59 05:59 Intake Total 1719.8 1407 Output Total 1575 675 Balance 144.8 732 Laboratory Tests 01/18/17 05:30 AST 55 ALT 60 Alkaline Phosphatase 96 Physical Exam - Physical Exam General Appearance: no apparent distress, No alert (somnolent but fidgeting and arousable) EENT: normal ENT inspection Neck: normal inspection Respiratory: lungs clear, normal breath sounds Cardiac/Chest: regular rate, rhythm, No edema Abdomen: normal bowel sounds, non-tender Skin: normal color, warm/dry Extremities: normal inspection Neuro/Psych: No alert, No normal mood/affect, No oriented x 3 (visual and auditory hallucinations), No motor weakness ICD10 Worksheet Patient Problems: Problems Problem Status Onset Alcohol withdrawal Acute Withdrawal seizures Acute Alcohol intoxication Acute Alcoholism Acute Intracranial hemorrhage Acute Perforation of duodenal ulcer Acute
[2017-01-18] MEDS ORDERED: chlordiazePOXIDE 25 MG CAP PO SCH (12:57)
--- NOTE | 2017-01-18 14:44 | HOSPPROG ---
Hospitalist Progress Note Assessment/Plan: assessment: 56-year-old male presents with acute alcohol withdrawal seizure Plan: 1. alcohol withdrawal seizure. Acute, witnessed by EMT, placing him at high risk for recurrent seizure if left untreated -HCT w/o ICH -hold on antiepileptic and treat for acute alcohol withdrawal -if experiences recurrent seizures, initiate antiepileptic and consult with Neurology -placed on scheduled librium given his high risk of recurrence and taper during this hospitalization (10mg tid) -continue seizure precautions 2. acute alcohol withdrawal. Evidence by tremulousness, disorientation, hallucination, alcohol level negative on presentation -patient has desire to maintain sobriety -patient more somnolent s/p librium dosing, reduce to 10mg tid and gauge effect , plan to reduce to bid dosing tomorrow if able -d/w Dr. Rodney on ICU rounds, agree to hold precedex and gauge effect, attempt to preferentially use haldol for hallucinations 3. alcoholic hepatitis. Acute, abdominal pain subsided, monitor transaminitis 4. compression fracture. suspect chronic, placed Lidoderm patch and use as needed nonsteroidal anti-inflammatory medication 5. acute encephalopathy. New problem to this provider, further w/u indicated. Evidenced by global brain dysfunction characterized as disorientation, confusion , agitation, somnolence, all of which is an acute change from his baseline and is likely multifactoral toxic-metabolic in setting of benzos, precedex, and EtOH withdraw -currently somnolent, attempting to reduce amount of w/d Rx in system and allow to clear from a med standpoint -remains safety risk to self, restraints required -with rising WBC and risk of aspiration, get CXR to r/o PNA Diet. Regular Prophylaxis. High risk patient given mobility, Lovenox 40 Code. Full Disposition. Anticipated discharge uncertain this time, continuing to require ICU level of care Subjective: Patient agitated overnight, received Librium this morning and became somnolent Objective: Vital Signs Temp Pulse Resp BP Pulse Ox 36.6 C 60 12 120/60 94 01/17/17 20:00 01/18/17 09:52 01/18/17 09:52 01/18/17 09:52 01/18/17 09:52 Laboratory Results 01/18/17 05:30 01/18/17 05:30 01/17/17 01/18/17 01/19/17 05:59 05:59 05:59 Intake Total 1719.8 1407 Output Total 1575 675 Balance 144.8 732 - Physical Exam Constitutional: no apparent distress, appears nourished, not in pain, unkempt, No uncomfortable Cardiovascular: regular rate and rhythym, no murmur, rub, or gallop, No irregularly irregular, No tachycardia, No edema Respiratory: reduced air movement (Bilateral bases), other (Poor inspiratory effort), No expiratory wheeze, No inspiratory crackles, No bronchial breath sounds Gastrointestinal: normoactive bowel sounds, soft, non-tender abdomen, no palpable masses, No guarding, No distension Psychiatric: other (Somnolent but arousable to tactile stimuli) ICD10 Worksheet Patient Problems: Problems Problem Status Onset Perforation of duodenal ulcer Acute Intracranial hemorrhage Acute Alcohol intoxication Acute Alcoholism Acute Alcohol withdrawal Acute Withdrawal seizures Acute
[2017-01-18] MEDS: PATCH REMOVAL 1 EA PATCH TD SCH (21:51)
[2017-01-18] MEDS ORDERED: MAGNESIUM SULF 1 GM/DEXTROSE 100 ML IV ONE (23:30)
[2017-01-19] MEDS: HALOPERIDOL LACT 5 MG/ML INJ IVP PRN (03:17)
[2017-01-19] MEDS: ACETAMINOPHEN 325 MG TAB PO PRN (03:17)
[2017-01-19] MEDS: NAPROXEN SODIUM 220 MG TAB PO PRN ×2 (04:22→16:48)
[2017-01-19 04:43] LABS: % IMMATURE GRANULYOCYTES 0.8 % (0.0-1.1); ABSOLUTE IMMATURE GRANULOCYTES 0.07 10^3/uL (0.00-0.10); ADD DIFF? NO; ADD MORPH? NO; ADD SCAN? NO; ATYPICAL LYMPHOCYTE FLAG 0 (0-99); FRAGMENT RBC FLAG 0 (0-99); HEMATOCRIT 38.4 % (40.0-51.0); HEMOGLOBIN 13.3 g/dL (13.7-17.5); LEFT SHIFT FLG 10 (0-99); LIPEMIA HEMOLYSIS FLAG 90 (0-99); MEAN CELL HEMOGLOBIN CONCENTR. 34.6 g/dL (32.4-36.7); MEAN CELL VOLUME 92.5 fL (81.5-99.8); MEAN PLATELET VOLUME 10.4 fL (8.7-11.7); PLATELET CLUMPS FLAG 0 (0-99); PLATELET COUNT 181 10^3/uL (150-400); RED BLOOD CELL COUNT 4.15 10^6/uL (4.40-6.38); RED CELL DISTRIBUTION WIDTH 12.9 % (11.5-15.2)
[2017-01-19 04:54] LABS: ALANINE AMINOTRANSFERASE 48 IU/L (21-72); ALBUMIN 3.2 g/dL (3.5-5.0); ALKALINE PHOSPHATASE 89 IU/L (38-126); ANION GAP 14 mEq/L (8-16); ASPARTATE AMINOTRANSFERASE 43 IU/L (17-59); BILIRUBIN,TOTAL 0.8 mg/dL (0.1-1.4); CALCIUM 8.5 mg/dL (8.5-10.4); CARBON DIOXIDE 21 mEq/l (22-31); CHLORIDE 101 mEq/L (97-110); CREATININE 0.9 mg/dL (0.7-1.3); GLOMERULAR FILTRATION RATE > 60; GLUCOSE 86 mg/dL (70-100); POTASSIUM 3.3 mEq/L (3.5-5.2); SODIUM 136 mEq/L (134-144); TOTAL PROTEIN 6.6 g/dL (6.3-8.2)
[2017-01-19] MEDS ORDERED: POTASSIUM CL 20 MEQ TAB PO ONE (08:19)
[2017-01-19] MEDS: CITALOPRAM 20 MG TAB PO SCH (08:55)
[2017-01-19] MEDS: THIAMINE HCL 100 MG TAB PO SCH (08:55)
[2017-01-19] MEDS: buPROPion SR 150 MG TAB PO SCH ×2 (08:55→21:06)
[2017-01-19] MEDS: MULTIVITAMINS 1 EACH TAB PO SCH (08:55)
[2017-01-19] MEDS: ENOXAPARIN 40 MG/0.4 ML SYR SC SCH (08:55)
[2017-01-19] MEDS: LIDOCAINE 5% 1 EA PATCH TD SCH (08:56)
--- NOTE | 2017-01-19 09:49 | PDINTPN ---
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 Resolved. Sz: No further seizures. Plan: ?Reduce Librium scheduled dose vs change to PRN. Increase activity. Probably can transfer to [facility] 01/18/17 12:58 01/19/17 09:48 Subjective: C/O bilateral foot pain that he attributes to "the convulsions". No hallucinations. Appetite improving. Still very unsteady/weak. Objective: Vital Signs Temp Pulse Resp BP Pulse Ox 36.7 C 79 17 128/76 H 95 01/19/17 08:00 01/19/17 08:00 01/19/17 08:00 01/19/17 08:00 01/19/17 08:00 Laboratory Results 01/19/17 04:27 01/19/17 04:27 01/18/17 01/19/17 01/20/17 05:59 05:59 05:59 Intake Total 1407 300 Output Total 675 300 Balance 732 0 Physical Exam - Physical Exam General Appearance: alert, no apparent distress EENT: normal ENT inspection Neck: normal inspection Respiratory: lungs clear, normal breath sounds Cardiac/Chest: regular rate, rhythm, No edema Abdomen: non-tender, soft Skin: normal color, warm/dry Extremities: normal inspection Neuro/Psych: alert, oriented x 3, motor weakness, No normal mood/affect (a bit sedated) ICD10 Worksheet Patient Problems: Problems Problem Status Onset Alcohol withdrawal Acute Withdrawal seizures Acute Alcohol intoxication Acute Alcoholism Acute Intracranial hemorrhage Acute Perforation of duodenal ulcer Acute
--- NOTE | 2017-01-19 13:43 | HOSPPROG ---
Hospitalist Progress Note Assessment/Plan: assessment: 56-year-old male presents with acute alcohol withdrawal seizure Plan: 1. alcohol withdrawal seizure. Acute, witnessed by EMT, placing him at high risk for recurrent seizure if left untreated -HCT w/o ICH -hold on antiepileptic and treat for acute alcohol withdrawal -if experiences recurrent seizures, initiate antiepileptic and consult with Neurology -continue seizure precautions 2. acute alcohol withdrawal. Evidence by tremulousness, disorientation, hallucination, alcohol level negative on presentation -patient has desire to maintain sobriety -patient more interactive and oriented today -d/w Dr. Rodney on ICU rounds, agree to reduce librium to PRN, off precedex -patient continues to have unsteady gait, continues to work with physical therapy, requiring ongoing inpatient hospitalization 3. alcoholic hepatitis. Acute, abdominal pain subsided, resolved 4. compression fracture. suspect chronic, placed Lidoderm patch and use as needed nonsteroidal anti-inflammatory medication 5. acute encephalopathy. Evidenced by global brain dysfunction characterized as disorientation, confusion, agitation, somnolence, all of which is an acute change from his baseline and is likely multifactoral toxic-metabolic in setting of benzos, precedex, and EtOH withdraw -no e/o infxn on CXR -improving today 6. Foot pain. Acute, no clearly identifiable etiology on physical exam of the patient does have bilateral tophi, neither of which are tender to palpation, unable to reproduce pain on physical exam -continue to monitor -suspect this may be either neuropathy from alcoholism or simply interpretation of pain from unsteady gait in the setting of hypersensitivity from alcohol withdrawal Diet. Regular Prophylaxis. High risk patient given mobility, Lovenox 40 Code. Full Disposition. Anticipated discharge 01/20 pending improvement of above Subjective: patient is more oriented, more cooperative, he is able to eat reports unsteady gait and pain in his feet Objective: Vital Signs Temp Pulse Resp BP Pulse Ox 36.7 C 79 17 128/76 H 95 01/19/17 08:00 01/19/17 08:00 01/19/17 08:00 01/19/17 08:00 01/19/17 08:00 Laboratory Results 01/19/17 04:27 01/19/17 04:27 01/18/17 01/19/17 01/20/17 05:59 05:59 05:59 Intake Total 1407 300 Output Total 675 300 Balance 732 0 - Physical Exam Constitutional: no apparent distress, not in pain, uncomfortable, unkempt Cardiovascular: regular rate and rhythym, no murmur, rub, or gallop, No edema Respiratory: no respiratory distress, no rales or rhonchi, clear to auscultation Gastrointestinal: normoactive bowel sounds, soft, non-tender abdomen, no palpable masses, No distension Musculoskeletal: other ( full range of motion bilateral ankles without any pain induced, no tenderness to palpation over the bilateral plantar surfaces of his feet, no bony abnormalities of his feet other than toe 5 bilateral 3rd digits which are nontender) Neurologic: AAOx3, other ( mildly tremulous) Psychiatric: thought process linear, anxious, flat affect, poor memory, No agitated ICD10 Worksheet Patient Problems: Problems Problem Status Onset Perforation of duodenal ulcer Acute Intracranial hemorrhage Acute Alcohol intoxication Acute Alcoholism Acute Alcohol withdrawal Acute Withdrawal seizures Acute
[2017-01-19] MEDS: LORazepam 2 MG/ML INJ IVP PRN (18:47)
[2017-01-19] MEDS: PATCH REMOVAL 1 EA PATCH TD SCH (21:06)
[2017-01-20] MEDS: ACETAMINOPHEN 325 MG TAB PO PRN (00:28)
[2017-01-20 04:50] LABS: % IMMATURE GRANULYOCYTES 0.9 % (0.0-1.1); ABSOLUTE IMMATURE GRANULOCYTES 0.09 10^3/uL (0.00-0.10); ADD DIFF? NO; ADD MORPH? NO; ADD SCAN? NO; ATYPICAL LYMPHOCYTE FLAG 10 (0-99); FRAGMENT RBC FLAG 0 (0-99); HEMATOCRIT 39.8 % (40.0-51.0); HEMOGLOBIN 13.4 g/dL (13.7-17.5); LEFT SHIFT FLG 10 (0-99); LIPEMIA HEMOLYSIS FLAG 80 (0-99); MEAN CELL HEMOGLOBIN 31.6 pg (27.9-34.1); MEAN CELL HEMOGLOBIN CONCENTR. 33.7 g/dL (32.4-36.7); MEAN CELL VOLUME 93.9 fL (81.5-99.8); MEAN PLATELET VOLUME 9.9 fL (8.7-11.7); PLATELET CLUMPS FLAG 0 (0-99); PLATELET COUNT 213 10^3/uL (150-400); RED BLOOD CELL COUNT 4.24 10^6/uL (4.40-6.38); RED CELL DISTRIBUTION WIDTH 12.6 % (11.5-15.2)
[2017-01-20 04:58] LABS: ANION GAP 11 mEq/L (8-16); CALCIUM 8.6 mg/dL (8.5-10.4); CARBON DIOXIDE 24 mEq/l (22-31); CHLORIDE 104 mEq/L (97-110); CREATININE 0.9 mg/dL (0.7-1.3); GLOMERULAR FILTRATION RATE > 60; GLUCOSE 96 mg/dL (70-100); POTASSIUM 3.9 mEq/L (3.5-5.2); SODIUM 139 mEq/L (134-144)
[2017-01-20] MEDS: NAPROXEN SODIUM 220 MG TAB PO PRN ×2 (06:39→15:41)
[2017-01-20] MEDS: buPROPion SR 150 MG TAB PO SCH ×2 (09:19→20:03)
[2017-01-20] MEDS: THIAMINE HCL 100 MG TAB PO SCH (09:19)
[2017-01-20] MEDS: CITALOPRAM 20 MG TAB PO SCH (09:19)
[2017-01-20] MEDS: MULTIVITAMINS 1 EACH TAB PO SCH (09:19)
[2017-01-20] MEDS: LIDOCAINE 5% 1 EA PATCH TD SCH (09:20)
[2017-01-20] MEDS: ENOXAPARIN 40 MG/0.4 ML SYR SC SCH (09:20)
--- NOTE | 2017-01-20 09:49 | PDINTPN ---
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 Resolved. Sz: No further seizures. Foot Pain: Likely neuropathic. Anemia: Mild, stable. Plan: Continue low-dose PRN Librium. Increase activity. Consider gabapentin/ pregabalin qHS for foot pain. Probably can transfer to /S. Start discharge planning, hopefully discharge tomorrow. 01/20/17 09:50 Subjective: Feels better, more lucid. C/O pain both feet overnight that interfered with sleep. Appetite returning. Objective: Vital Signs Temp Pulse Resp BP Pulse Ox 36.4 C 86 20 125/77 H 100 01/20/17 08:00 01/20/17 08:00 01/20/17 08:00 01/20/17 08:00 01/20/17 08:00 Laboratory Results 01/20/17 04:35 01/20/17 04:35 01/19/17 01/20/17 01/21/17 05:59 05:59 05:59 Intake Total 300 800 Output Total 300 950 Balance 0 -150 Physical Exam - Physical Exam General Appearance: alert, no apparent distress EENT: normal ENT inspection Neck: normal inspection Respiratory: lungs clear, normal breath sounds Cardiac/Chest: regular rate, rhythm Abdomen: normal bowel sounds, non-tender Skin: normal color, warm/dry Extremities: normal inspection Neuro/Psych: alert, normal mood/affect, No oriented x 3 (off 1 day on date) ICD10 Worksheet Patient Problems: Problems Problem Status Onset Alcohol withdrawal Acute Withdrawal seizures Acute Alcohol intoxication Acute Alcoholism Acute Intracranial hemorrhage Acute Perforation of duodenal ulcer Acute
--- NOTE | 2017-01-20 11:56 | HOSPPROG ---
Hospitalist Progress Note Assessment/Plan: Assessment: 56-year-old male presents with acute alcohol withdrawal seizure c/ b severe alcohol withdraw and encephalopathy, now clearing Plan: 1. alcohol withdrawal seizure. Leading to initial presentation, witnessed by EMT , none further noted during hospitalization -hold on antiepileptic given cause is EtOH w/d -if experiences recurrent seizures, initiate antiepileptic and consult with Neurology 2. acute alcohol withdrawal. Severe, evidence by tremulousness, disorientation, hallucination, alcohol level negative on presentation -patient has desire to maintain sobriety -patient much more interactive and oriented today -d/w Dr. Rodney, we agree that benzos only PRN for next 24hrs and safe for med surg transfer -patient continues to have unsteady gait and requires PT/OT reassessments to determine whether SNF vs. home care needed, case mgmt involved 3. alcoholic hepatitis. Acute, abdominal pain subsided, resolved 4. compression fracture. suspect chronic, placed Lidoderm patch and use as needed nonsteroidal anti-inflammatory medication 5. acute encephalopathy. 2/2 EtOH w/d and toxic effect of Rx required to treat, resolved 6. 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 Acutely noted by patient after withdraw improved, located bilat plantar surfaces radiating proximally w/o any physical exam reproducibility or MSK pathology noted -suspect that patient has developed this chronically and hasn't noticed 2/2 ongoing EtOH use, and now it is flaring in setting of withdraw and increased sober-awareness -given that it is significantly impacting sleep, will start gabapentin 300mg HS now, recommend continuing at discharge, and arrange outpt medical f/u for this issue Diet. Regular Prophylaxis. High risk patient given mobility, Lovenox 40 Code. Full Disposition. Anticipated discharge 01/21 pending improvement of above, SNF vs. home care (ideally to home, per patient) Subjective: patient reports that his bilateral foot pain was significant last night when he was attempting to sleep Objective: Vital Signs Temp Pulse Resp BP Pulse Ox 36.4 C 86 20 125/77 H 100 01/20/17 08:00 01/20/17 08:00 01/20/17 08:00 01/20/17 08:00 01/20/17 08:00 Laboratory Results 01/20/17 04:35 01/20/17 04:35 01/19/17 01/20/17 01/21/17 05:59 05:59 05:59 Intake Total 300 800 Output Total 300 950 Balance 0 -150 - Pending Discharge Pending Discharge Within 24 Hours: Yes Pending Discharge Date: 01/21/17 Pending Discharge Time: 11:00 - Physical Exam Constitutional: no apparent distress, appears nourished, uncomfortable, unkempt Eyes: PERRL, anicteric sclera, EOMI Cardiovascular: regular rate and rhythym, no murmur, rub, or gallop, No systolic murmur, No irregularly irregular, No edema Respiratory: no respiratory distress, no rales or rhonchi, clear to auscultation , No respiratory distress Gastrointestinal: normoactive bowel sounds, soft, non-tender abdomen, no palpable masses, No distension Neurologic: AAOx3, sensation intact bilaterally, No asterixes ( mild tremulousness bilateral upper extremities) Psychiatric: interacting appropriately, not encephalopathic, anxious, No agitated ICD10 Worksheet Patient Problems: Problems Problem Status Onset Perforation of duodenal ulcer Acute Intracranial hemorrhage Acute Alcohol intoxication Acute Alcoholism Acute Alcohol withdrawal Acute Withdrawal seizures Acute
[2017-01-20] MEDS: GABAPENTIN 300 MG CAP PO SCH (20:03)
[2017-01-20] MEDS: PATCH REMOVAL 1 EA PATCH TD SCH (20:03)
[2017-01-21 04:06] LABS: ABSOLUTE IMMATURE GRANULOCYTES 0.09 10^3/uL (0.00-0.10); ADD DIFF? NO; ADD MORPH? NO; ADD SCAN? NO; ATYPICAL LYMPHOCYTE FLAG 0 (0-99); FRAGMENT RBC FLAG 0 (0-99); HEMATOCRIT 38.5 % (40.0-51.0); HEMOGLOBIN 13.1 g/dL (13.7-17.5); LEFT SHIFT FLG 30 (0-99); LIPEMIA HEMOLYSIS FLAG 90 (0-99); MEAN CELL HEMOGLOBIN 31.6 pg (27.9-34.1); MEAN CELL VOLUME 92.8 fL (81.5-99.8); MEAN PLATELET VOLUME 9.8 fL (8.7-11.7); PLATELET CLUMPS FLAG 10 (0-99); PLATELET COUNT 226 10^3/uL (150-400); RED BLOOD CELL COUNT 4.15 10^6/uL (4.40-6.38); RED CELL DISTRIBUTION WIDTH 12.6 % (11.5-15.2)
[2017-01-21] MEDS: NAPROXEN SODIUM 220 MG TAB PO PRN ×2 (07:58→14:11)
[2017-01-21] MEDS: THIAMINE HCL 100 MG TAB PO SCH (07:58)
[2017-01-21] MEDS: ENOXAPARIN 40 MG/0.4 ML SYR SC SCH (07:59)
[2017-01-21] MEDS: MULTIVITAMINS 1 EACH TAB PO SCH (07:59)
[2017-01-21] MEDS: buPROPion SR 150 MG TAB PO SCH ×2 (07:59→21:52)
[2017-01-21] MEDS: CITALOPRAM 20 MG TAB PO SCH (07:59)
[2017-01-21] MEDS: LIDOCAINE 5% 1 EA PATCH TD SCH ×2 (07:59→09:55)
--- NOTE | 2017-01-21 14:50 | HOSPPROG ---
Hospitalist Progress Note Assessment/Plan: Assessment: 56-year-old male presents with acute alcohol withdrawal seizure c/ b severe alcohol withdraw and encephalopathy, now clearing Plan: 1. alcohol withdrawal seizure. None during hospitalizatoin -defer anti-epileptic give etoh etiology -if experiences recurrent seizures, initiate antiepileptic and consult with Neurology 2. acute alcohol withdrawal. Improving, though still a bit tremulous today. Poor insight, though states would like to maintain sobriety. Continues to have unsteady gait -prn bzd's -PT/OT 3. alcoholic hepatitis. Resolved. 4. compression fracture. suspect chronic. -lidoderm, prn nsaid's, though avoid fire patroller use of latter given etoh hx and bleeding risk 5. acute encephalopathy. 2/2 EtOH w/d and toxic effect of Rx required to treat, resolved 6. 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 Regular Prophylaxis. High risk patient given mobility, Lovenox 40 Code. Full Disposition. Anticipated discharge 01/22, likely to inpt rehab Subjective: Pt still a bit tremulous. He exhibits poor insight into his safety. Requiring 2 person assist to get out of bed, but he feels safe to go home. No N/V. No fevers. Still a bit tremulous, less confused. Objective: Vital Signs Temp Pulse Resp BP Pulse Ox 36.6 C 78 18 159/88 H 96 01/21/17 07:48 01/21/17 09:25 01/21/17 07:48 01/21/17 07:48 01/21/17 09:25 Laboratory Results 01/21/17 03:50 01/20/17 04:35 01/20/17 01/21/17 01/22/17 05:59 05:59 05:59 Intake Total 800 800 550 Output Total 950 Balance -150 800 550 - Physical Exam Constitutional: no apparent distress Eyes: PERRL Ears, Nose, Mouth, Throat: moist mucous membranes Cardiovascular: regular rate and rhythym Respiratory: no respiratory distress Gastrointestinal: normoactive bowel sounds, soft, non-tender abdomen Skin: warm Musculoskeletal: full muscle strength Neurologic: AAOx3 Psychiatric: poor insight, poor judgement, poor memory ICD10 Worksheet Patient Problems: Problems Problem Status Onset Alcohol withdrawal Acute Withdrawal seizures Acute Alcohol intoxication Acute Alcoholism Acute Intracranial hemorrhage Acute Perforation of duodenal ulcer Acute
[2017-01-21] MEDS: GABAPENTIN 300 MG CAP PO SCH (21:52)
[2017-01-21] MEDS: THIAMINE HCL 500 MG in NS 100 ML IV SCH (21:53)
[2017-01-21] MEDS: PATCH REMOVAL 1 EA PATCH TD SCH (21:53)
[2017-01-22] MEDS: ACETAMINOPHEN 325 MG TAB PO PRN ×2 (01:15→21:31)
[2017-01-22] MEDS: THIAMINE HCL 500 MG in NS 100 ML IV SCH ×3 (06:16→21:56)
[2017-01-22] MEDS: MULTIVITAMINS 1 EACH TAB PO SCH (07:48)
[2017-01-22] MEDS: buPROPion SR 150 MG TAB PO SCH (07:48)
[2017-01-22] MEDS: NAPROXEN SODIUM 220 MG TAB PO PRN ×3 (07:48→21:30)
[2017-01-22] MEDS: CITALOPRAM 20 MG TAB PO SCH (07:48)
[2017-01-22] MEDS: LIDOCAINE 5% 1 EA PATCH TD SCH ×2 (07:49→10:19)
[2017-01-22] MEDS: ENOXAPARIN 40 MG/0.4 ML SYR SC SCH (07:49)
[2017-01-22] MEDS ORDERED: GABAPENTIN 300 MG CAP PO SCH (09:52)
--- NOTE | 2017-01-22 10:20 | HOSPPROG ---
Hospitalist Progress Note Assessment/Plan: 56-year-old male presents with acute alcohol withdrawal seizure c/b severe alcohol withdraw and encephalopathy, now clearing though persistent b/l UE and LE pain 1. alcohol withdrawal seizure. None during hospitalization -defer anti-epileptic give etoh etiology -if experiences recurrent seizures, initiate antiepileptic and consult with Neurology 2. acute alcohol withdrawal. Improving, mentation has cleared today. Still a bit tremulous. -prn bzd's -PT/OT 3. alcoholic hepatitis. Resolved. 4. compression fracture. suspect chronic. -lidoderm, prn nsaid's, though avoid swatch paster use of latter given etoh hx and bleeding risk 5. acute encephalopathy. 2/2 EtOH w/d and toxic effect of Rx required to treat, resolved 6. polyneuropathy. may be chronic and now more aware in sober state vs more central process -CT brain -MRI c-spine and l-spine to r/o cord impingement -check TSH, folate, B12 -increase gabapentin -will request neurology consult Diet. Regular Prophylaxis. High risk patient given mobility, Lovenox 40 Code. Full Disposition. Cont inpt. Likely d/c to inpt rehab when Subjective: Pt more clear today. Still complaining of b/l LE and UE pain. 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 Objective: Vital Signs Temp Pulse Resp BP Pulse Ox 36.9 C 82 18 146/83 H 94 01/22/17 08:00 01/22/17 08:00 01/22/17 08:00 01/22/17 08:00 01/22/17 08:00 Laboratory Results 01/21/17 03:50 01/20/17 04:35 01/21/17 01/22/17 01/23/17 05:59 05:59 05:59 Intake Total 800 1100 Balance 800 1100 - Physical Exam Constitutional: no apparent distress Eyes: PERRL Ears, Nose, Mouth, Throat: moist mucous membranes Cardiovascular: regular rate and rhythym Respiratory: no respiratory distress, clear to auscultation Gastrointestinal: normoactive bowel sounds, soft, non-tender abdomen Skin: warm Musculoskeletal: other (decreased school psychometrist strength RUE) Neurologic: AAOx3 Psychiatric: interacting appropriately ICD10 Worksheet Patient Problems: Problems Problem Status Onset Alcohol withdrawal Acute Withdrawal seizures Acute Alcohol intoxication Acute Alcoholism Acute Intracranial hemorrhage Acute Perforation of duodenal ulcer Acute
[2017-01-22 12:35] LABS: FOLATE SERUM 19.3 ng/mL (2.80 - >20.00)
[2017-01-22] MEDS: GABAPENTIN 300 MG CAP PO SCH ×2 (16:49→21:31)
[2017-01-22] MEDS: PATCH REMOVAL 1 EA PATCH TD SCH (20:36)
[2017-01-22 21:44] VITALS: RESP 16
[2017-01-22] MEDS: hydrALAZINE 20 MG/ML VIAL IVP PRN (22:00)
--- NOTE | 2017-01-22 22:15 | GCON ---
[f rep st] CONSULTATION NEUROSURGICAL CONSULTATION CHIEF COMPLAINT: Burning arm and leg pain. HISTORY OF PRESENT ILLNESS: The patient is a 56-year-old male, who [facility] with a seizure. He has a known history of alcoholism and depression, and t he seizure was witnessed by his family. He was admitted to the hospital and while in the hospital w as complaining of burning pain in his arms and legs. An MRI of the cervical spine was obtained and Neurosurgical consultation was requested. He currently complains of generalized weakness in his rig ht and left arms with weakness that is worse on his right. He describes burning paresthesias in his arms and legs bilaterally. He is not having neck pain or radicular arm pain. He does feel that hi s balance is off, but he is not having any bowel or bladder problems. 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 PAST MEDICAL HISTORY: 1. Alcohol abuse. 2. Depression. 3. Perforated duodenal ulcer. 4. Previous history of a traumatic fall with an intracranial hemorrhage. MEDICATIONS: Prior to admission are Wellbutrin and citalopram. ALLERGIES: No known drug allergies. FAMILY HISTORY: Patient has no family history of spine problems. SOCIAL HISTORY: Patient is with children. He does not smoke. Denies recreational drug use , but does drink "too much." REVIEW OF SYSTEMS: Negative. PHYSICAL EXAM: GENERAL: Patient is a 56-year-old male lying in bed, no apparent distress. HEAD, E YES, EARS, NOSE, AND THROAT: Negative for drainage. EXTREMITIES: Wrens, warm, and dry. NEUROLOGIC AL: Patient is awake, alert, and oriented x4. Pupils equal, round, and reactive to light. Extraoc ular motions are intact. There is no evidence of facial droop. Tongue and uvula are midline. Spin al accessory muscles are intact. His motor strength is roughly 4+ out of 5 in his bilateral upper e xtremities, although his motor strength is very effort dependent. He does move both of his lower ex tremities and appears to have full physiologic strength, but again his exam is very effort dependent . His sensation is grossly intact to light touch in his arms and legs, but he has hyperesthetic sen sation in both arms and legs. Deep tendon reflexes are 3+ out of 4 in the bilateral biceps, triceps , brachioradialis, 3+ out of 4 in the patellar, and 2+ out of 4 in the Achilles. Unable to test Hof fmann or clonus due to this patient's hypersensitivity. DIAGNOSTIC STUDIES: An MRI of the cervical spine without contrast demonstrates straightening of the sagittal line with multilevel degenerative changes. At C3-4, there is a large posterior osteophyte with posterior ligamentum thickening that produces moderate central canal stenosis. There is no ev idence of gliosis within the cord at this level. 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 PLAN: Above discussed in detail with the patient. This patient was seen and examined by Dr. Fritz sotelo. His current MRI does not show severe stenosis. There is no evidence of gliosis within the co rd. At this point in time, we would like the patient to be on Neurontin and would likely start him on 300 mg p.o. 3 times a day. It was discussed with the patient that this dysesthetic arm and hand pain can be very slow to improve. We can always consider flexion-extension plain films of the cervi chrissie spine to determine if there is any translational listhesis or instability. Please call with any neurological changes, and we will follow this patient on a conservative basis for now. /[id number]/MODL
[2017-01-23] MEDS: ACETAMINOPHEN 325 MG TAB PO PRN (04:54)
[2017-01-23] MEDS: NAPROXEN SODIUM 220 MG TAB PO PRN (04:55)
[2017-01-23] MEDS: THIAMINE HCL 500 MG in NS 100 ML IV SCH (04:55)
[2017-01-23] MEDS: CITALOPRAM 20 MG TAB PO SCH (07:18)
[2017-01-23] MEDS: ENOXAPARIN 40 MG/0.4 ML SYR SC SCH (07:18)
[2017-01-23] MEDS: MULTIVITAMINS 1 EACH TAB PO SCH (07:18)
[2017-01-23] MEDS: GABAPENTIN 300 MG CAP PO SCH (07:19)
[2017-01-23] MEDS: LIDOCAINE 5% 1 EA PATCH TD SCH ×2 (07:19→09:29)
[2017-01-23 07:47] VITALS: BP 132/79; PULSE 68; TEMP 98.3; O2SAT 99
--- NOTE | 2017-01-23 08:45 | SOAPPROG ---
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 Plan: neuro: stable, pain improved today with neurontin 300 mg po tid, weakness appears to be improving also stenosis at C3/4 moderate and does not require surgery at this point in time. no need for c-collar PT/OT ok to dc when cleared by IM please call with neuro changes discussed with Dr Roman 01/23/17 08:41 Subjective: arm and leg pain better, strength appears to be improving also. Objective: Vital Signs Temp Pulse Resp BP Pulse Ox 36.8 C 68 16 132/79 H 99 01/23/17 07:44 01/23/17 07:44 01/23/17 07:44 01/23/17 07:44 01/23/17 07:44 Laboratory Results 01/21/17 03:50 01/20/17 04:35 01/22/17 01/23/17 01/24/17 05:59 05:59 05:59 Intake Total 1100 2050 Output Total 750 Balance 1100 1300 AAOX4, +FC PERRL, EOMI, no facial droop 5/5 except right arm 4+/5 + light touch ICD10 Worksheet Patient Problems: Problems Problem Status Onset Alcohol withdrawal Acute Withdrawal seizures Acute Alcohol intoxication Acute Alcoholism Acute Intracranial hemorrhage Acute Perforation of duodenal ulcer Acute
[2017-01-23] MEDS ORDERED: buPROPion SR 150 MG TAB PO SCH (09:00)
--- NOTE | 2017-01-23 09:37 | PDIAF ---
- Diagnosis Diagnosis: alcohol withdrawal, peripheral neuropathy Code Status: Full Code - Medication Management Discharge Medications: Medications to Continue on Transfer Citalopram [CeleXA 20 MG] 20 mg PO DAILY 11/29/13 [Last Taken Unknown] Herbals/Supplements -Info Only 1 ea PO DAILY 01/15/17 [Last Taken Unknown] Multivitamins [Multivitamin (*)] 1 each PO DAILY 01/15/17 [Last Taken Unknown] Acetaminophen [Tylenol 325mg (*)] 650 mg PO Q4HRS PRN #0 tab 01/23/17 [Last Taken Unknown] Folic Acid [Folic Acid 1 MG (*)] 1 mg PO DAILY #30 tab 01/23/17 [Last Taken Unknown] Gabapentin [Neurontin 300 MG (*)] 300 mg PO 0900,1200 #60 cap 01/23/17 [Last Taken Unknown] Gabapentin [Neurontin 300 MG (*)] 600 mg PO HS #60 cap 01/23/17 [Last Taken Unknown] Thiamine HCl 100 mg PO DAILY #30 tablet 01/23/17 [Last Taken Unknown] buPROPion SR [Wellbutrin 150mg SR (*)] 150 mg PO DAILY #30 tab 01/23/17 [Last Taken Unknown] Discharge Medications: Refer to the Discharge Home Medication list for PRN reason. PICC Care - Routine: N/A - Orders Services needed: Registered Nurse, Physical Therapy, Occupational Therapy Diet Recommendation: no restrictions on diet Activity/Weight Bearing Restrictions: As tolerated - Follow Up Care Current Providers and Referrals: Nikunj Stallings MD [Primary Care Provider] - As per Instructions
--- NOTE | 2017-01-23 10:26 | PDCONSULT ---
Pharmacy Delivery Driver Note: HOSPITAL NEUROLOGY CONSULT REQUESTING: Gina Steven DO REASON: extremity pain HPI: 56 year old alcoholic admitted 01/15 with alcohol withdrawal seizure. Since his mentation has cleared with supportive measures, he has been complaining of hypesthetic pain in the hands and feet. He states he has never experienced pain like this before. He is not weak, but he is now noting difficulty with walking since being sober. He is quite upset about having to use a walker. He has not had any bowel/bladder incontinence. He has some thoracic back pain and was found to have a chronic T12 compression fracture on L-spine CT. MRI C- spine was done showing mild central canal stenosis C3-4, and multilevel degenerative changes with multiple areas of neural foraminal stenosis, worst on the right at C6-7. Lumbar spine CT showed degenerative changes, but nothing critical. ROS: As per the HPI, otherwise a complete 12 point ROS was performed and is negative ALLERGIES AND MEDS: As recorded in the EMR - reviewed and reconciled PFSH: As per the intake H&P by Dr. Gaytan from 01/15/17 EXAM: VS reviewed in EMR GEN: WDWN laying in NAD HEENT: NCAT, sclera anicteric, conjunctiva not injected, MMM, oropharynx clear, no scalp tenderness NECK: supple, nontender, no meningismus CV: RRR s1 s2 wo m/r/c/g. Carotid pulses 2+ wo bruit NEURO: MS: awake, poor attention, oriented to all spheres. Speech nondysarthric. No language disturbance. Follows commands. Attends to both sides. Some episodic memory impairment on casual conversation. Mood euthymic. Adequate fund of knowledge. CN: pupils 5mm round and reactive. Fundi with sharp discs. VFF. Primary gaze centered. Full ocular motility. Smooth pursuits with saccadic intrusions. Saccades with undershoot. Facial sensation preserved. Face symmetric. Hearing grossly intact to finger rub. Palatoglossal movements intact. Shoulder shrug and head turn strong. MOTOR: normal bulk/tone. Full power throughout. Visibly tremulous in all extremities. SENSORY: reduced temp/JPS/vib in feet to above ankles. Very hypesthetic to PP/ LT in feet and hands. No extinction. COORD: Ataxia present LEs > UEs. Fadia labored. REFLEX: plantars down. No clonus. Absent ankle jerks, other DTRS 2/4. 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 He also has evidence of sensory loss in the feet. He is still experiencing the effects of withdrawal, as evident by his tremulousness. I very much suspect his acral hypesthesia is the result of neuropathy, now with worsening symptoms due to neurotransmitter imbalance from alcohol withdrawal. Explained how his brain and nerves are used to exogenous neurodepressant effects of alcohol, resulting in upregulation of excitatory neurotransmitters to balance this out. With the cessation of alcohol, all that is left is the excitatory effects, resulting in withdrawal and likely central and peripheral hypersensitization. This has resulted in worsening dysesthetic pain in the extremities. I don't think any spinal pathology is resulting in his symptoms. 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 Had a lengthy discussion with patient and his . Discussed how alcohol is a neurotoxin (though is toxic to all organ systems). Discussed how he does have nerve damage from the alcohol, as well as brain damage from the alcohol. Discussed how cessation from alcohol is of the utmost importance to prevent further worsening of symptoms, but that his current symptoms are likely irreversible. Discussed the kindling phenomenon of recurrent alcohol withdrawal , and how the brain becomes increasingly sensitive to withdrawal with each recurrence. Patient and seem to want to offer alternative explanations for his symptoms, and don't seem to have good insight into his condition. For now, continue gabapentin. He can visit with neurology as an outpatient for further optimization of neuropathic pain. Cont with CIWA, MVI, thiamine. He is going to inpatient rehab today. Will sign off.
[2017-01-23] MEDS ORDERED: GABAPENTIN 300 MG CAP PO SCH ×2 (12:00→21:00)
--- NOTE | 2017-01-24 11:40 | GDS ---
[f rep st] DISCHARGE SUMMARY DISCHARGE DIAGNOSES: 1. Seizure, likely secondary to alcohol withdrawal. 2. Acute alcohol withdrawal, resolved. 3. Alcoholic hepatitis, resolved. 4. Chronic compression fracture. 5. Acute encephalopathy related to alcohol withdrawal, resolved. 6. Polyneuropathy, likely secondary to alcohol and hastened by cervical neuroforaminal narrowing an d lumbar degenerative disk changes resulting in mild neural foraminal impingement. CONSULTANTS: 1. Dr. Kiet Rodney, Pulmonology. 2. Jones Winkler, Neurosurgery. 3. Gasper Hall, Neurology. HISTORY: For details, please see dictated history and physical dated January 15, 2017. In brief, the juliet ventura is a 56-year-old male with a history of alcohol abuse, who presents to the emergency departme after a witnessed seizure. He was admitted to the hospital for further management. HOSPITAL COURSE: The patient was admitted to the intensive care unit, presumed his seizure secondar y to alcohol withdrawal. He received benzodiazepines and did require Precedex during his withdrawal course in the intensive care unit. His symptoms finally improved with clearing of his mentation afte r 5-6 days. He was initially noted to have a small bump in his liver function tests thought likely r elated to alcoholic hepatitis. His LFTs normalized. After getting through his withdrawal stage, the patient complained of severe neuropathic pain in his bilateral upper and lower extremities. It was t hought this was possibly alcohol-induced peripheral neuropathy, which he may have not had awareness of until he achieved sobriety. Further workup was pursued, including cervical and lumbar spine imagi ng. He was found to have relatively advanced right neural foraminal stenosis at C6-C7 which correlat ed with his right hand weakness. In addition, lumbar spine imaging revealed some degenerative change s with borderline canal stenosis at L4-L5 related to diffuse disk bulge and mild bilateral recess st enosis and mild neural foraminal impingement. Neurosurgery consult was obtained and no surgical inte rvention was recommended. He was started on gabapentin and up titrated. He can continue to up titrat e his gabapentin as needed for symptom control. On the day of discharge, his symptoms were greatly i mproved. He was also evaluated by Neurology to ensure there were no other etiologies of his peripher al neuropathy or mental status changes, mostly at the patient's and his 's request. It was suspe cted that his worsening neuropathy symptoms were due to neurotransmitter imbalance from alcohol with drawal, and it was felt his ataxia was related to chronic alcohol exposure and toxic affects on the central nervous system, namely, the cerebellum. He will be continued on multivitamin, thiamine, and folic acid replacement at discharge. The patient's symptoms significantly improved, and he wished to discharge to rehab given his ongoing needs for strengthening and gait stability. DISPOSITION: Patient is discharged to inpatient rehab in stable condition. DISCHARGE MEDICATIONS: Please see [facility] for complete updated outpatient medication list. New med ications on discharge include: 1. Folic acid 1 mg p.o. daily. 2. Gabapentin 300 mg p.o. at 9 a.m. and noon and 600 mg at bedtime. 3. Thiamine 100 mg p.o. daily. Changed medications: His bupropion was decreased from 300 mg to 150 mg daily as this can lower his s eizure threshold. He will continue his outpatient dose of citalopram. FOLLOWUP: Primary care. /[id number]/MODL
== END 2017-01-23 11:21 | DRG 101 ==
LOC: EDUNIT# → F2N 13:22 → F3N 01-22 21:14
PROVIDERS: ADMIT Hospitalist; ATTEND Hospitalist
PROC: HZ2ZZZZ Detoxification Services for Substance Abuse Treatment (ICD-10-PCS; principal; 2017-01-15)
DX: R56.9 Unspecified convulsions (principal); F10.239 Alcohol dependence with withdrawal, unspecified; K70.10 Alcoholic hepatitis without ascites; G62.1 Alcoholic polyneuropathy; G31.2 Degeneration of nervous system due to alcohol; M84.48XA Pathological fracture, other site, initial encounter for fracture; R27.0 Ataxia, unspecified; I10 Essential (primary) hypertension; M51.36 Other intervertebral disc degeneration, lumbar region; M51.26 Other intervertebral disc displacement, lumbar region; M48.02 Spinal stenosis, cervical region; F32.9 Major depressive disorder, single episode, unspecified; Z87.820 Personal history of traumatic brain injury
CPT/HCPCS: 82607-90; 92507-GN; 92523-GN; 96374; 97116-GP; 97161-GP; 97165-GO; 97530-GO; 97535-GO; G0480; G8978-GP-CI; G8979-GP-CH; J0360; J1650; J2060; J3411; J3475

== ENCOUNTER 2017-01-23 11:30 | Inpatient (IN) | payer OTHER ==
[2017-01-23] MEDS: GABAPENTIN 300 MG CAP PO SCH ×2 (12:34→20:01)
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
[2017-01-24] MEDS: ENOXAPARIN 40 MG/0.4 ML SYR SC SCH (08:33)
[2017-01-24] MEDS: buPROPion SR 150 MG TAB PO SCH (08:34)
[2017-01-24] MEDS: THIAMINE HCL 100 MG TAB PO SCH (08:35)
[2017-01-24] MEDS: CITALOPRAM 20 MG TAB PO SCH (08:35)
[2017-01-24] MEDS: FOLIC ACID 1 MG TAB PO SCH (08:35)
[2017-01-24] MEDS: MULTIVITAMINS 1 EACH TAB PO SCH (08:35)
[2017-01-24] MEDS: GABAPENTIN 300 MG CAP PO SCH ×3 (08:35→19:49)
[2017-01-24] MEDS ORDERED: Herbals/Supplements -Info Only PO SCH (09:00)
[2017-01-24 09:03] LABS: % IMMATURE GRANULYOCYTES 0.9 % (0.0-1.1); ABSOLUTE IMMATURE GRANULOCYTES 0.09 10^3/uL (0.00-0.10); ADD DIFF? NO; ADD MORPH? NO; ADD SCAN? NO; ATYPICAL LYMPHOCYTE FLAG 10 (0-99); FRAGMENT RBC FLAG 0 (0-99); HEMATOCRIT 37.8 % (40.0-51.0); HEMOGLOBIN 12.6 g/dL (13.7-17.5); LEFT SHIFT FLG 20 (0-99); LIPEMIA HEMOLYSIS FLAG 80 (0-99); MEAN CELL HEMOGLOBIN 31.1 pg (27.9-34.1); MEAN CELL HEMOGLOBIN CONCENTR. 33.3 g/dL (32.4-36.7); MEAN CELL VOLUME 93.3 fL (81.5-99.8); MEAN PLATELET VOLUME 10.2 fL (8.7-11.7); PLATELET CLUMPS FLAG 0 (0-99); PLATELET COUNT 345 10^3/uL (150-400); RED BLOOD CELL COUNT 4.05 10^6/uL (4.40-6.38); RED CELL DISTRIBUTION WIDTH 12.2 % (11.5-15.2)
--- NOTE | 2017-01-24 09:31 | PDOREHIP ---
Admission [facility] - Admission - 3 Day Assessment Period Admission Date/Day 1: 01/23/17 Day 2: 01/24/17 Day 3: 01/25/17 - Active Diagnoses Comorbidities and Co-existing Conditions at Admission: 32140. None of the Above - Skin Conditions Unhealed Pressure Ulcer (1 or more/Stage 1 or >)-Admission: 0. No
--- NOTE | 2017-01-24 09:32 | SOAPPROG ---
SOAP Progress Note Assessment/Plan: Assessment: * Debility and cognitive impairment status post alcohol withdrawal and alcohol withdrawal seizure on 01/15/17. Physical and occupational therapy to optimize mobility and activities of daily living. 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 Evaluation and management per Speech and Language Pathology. * Elevated blood pressure. Treat for HTN. Started amlodipine 2.5 mg QD on . Renal fn wnl. * History of gout. Chart review reveals an elevated uric acid at 9.1 in May of 2015. Currently with joint swelling R thumb. Uric acid not elevated, 5.3, on labs 01/24/17. * Compression fracture, 12th thoracic vertebra. Check vitamin D level. * Polyneuropathy. Continue gabapentin, and consider adjusting if he does not have sufficient relief for sleep and to be able to participate in therapies. * Alcohol abuse and dependence. Social Work to evaluate resources for after his discharge from inpatient rehabilitation. If an addiction program can be located which utilizes naltrexone, this can be started while he is inpatient to reduce his urge to drink and blunt the euphoric effects of alcohol consumption. * Anemia, gradual worsening during his hospitalization. Slight worsening on CBC 01/24/17. Hemoccult stool. Start PPI as he has h/o duodenal ulcer and is on enoxaparin. 01/24/17 09:52 Subjective: C/O tender swelling R thumb. Been growing for several days. Interferes with use of R hand; unable t grasp objects without pain. Thinks it is a gout flare. No other joint pain currently Objective: Vital Signs Temp Pulse Resp BP Pulse Ox 36.8 C 85 18 152/94 H 93 01/24/17 07:48 01/24/17 07:48 01/24/17 07:48 01/24/17 08:36 01/24/17 07:48 Laboratory Results 01/24/17 06:00 01/23/17 01/24/17 01/25/17 05:59 05:59 05:59 Intake Total 538 Output Total 400 200 Balance 138 -200 Physical Exam - Physical Exam General Appearance: WD/WN, alert, no apparent distress Respiratory: normal breath sounds, No crackles, No rhonchi, No wheezing Cardiac/Chest: regular rate, rhythm, No edema Extremities: other (R thumb interphalangeal joint with soft tender swelling volar aspect approx 2 cm.) Neuro/Psych: alert, normal mood/affect, oriented x 3 ICD10 Worksheet Patient Problems: Problems Problem Status Onset Alcohol intoxication Acute Alcohol withdrawal Acute Alcoholism Acute Intracranial hemorrhage Acute Perforation of duodenal ulcer Acute Withdrawal seizures Acute
[2017-01-24 09:40] LABS: ALANINE AMINOTRANSFERASE 25 IU/L (21-72); ALKALINE PHOSPHATASE 98 IU/L (38-126); ANION GAP 15 mEq/L (8-16); ASPARTATE AMINOTRANSFERASE 20 IU/L (17-59); BILIRUBIN,TOTAL 0.5 mg/dL (0.1-1.4); CALCIUM 8.7 mg/dL (8.5-10.4); CARBON DIOXIDE 23 mEq/l (22-31); CHLORIDE 102 mEq/L (97-110); CREATININE 0.9 mg/dL (0.7-1.3); GLOMERULAR FILTRATION RATE > 60; GLUCOSE 78 mg/dL (70-100); POTASSIUM 4.2 mEq/L (3.5-5.2); SODIUM 140 mEq/L (134-144); TOTAL PROTEIN 6.3 g/dL (6.3-8.2); URIC ACID 5.3 mg/dL (3.5-8.5)
[2017-01-24 09:47] LABS: VITAMIN D 25-HYDROXY TOTAL 66.5 ng/mL (30-100)
[2017-01-24] MEDS: PANTOPRAZOLE SODIUM 40 MG TAB PO SCH (12:10)
[2017-01-24] MEDS ORDERED: INDOMETHACIN 25 MG CAP PO ONE (19:00)
[2017-01-24] MEDS: ACETAMINOPHEN 325 MG TAB PO PRN (19:49)
[2017-01-25] MEDS: PANTOPRAZOLE SODIUM 40 MG TAB PO SCH (08:19)
[2017-01-25] MEDS: ENOXAPARIN 40 MG/0.4 ML SYR SC SCH (08:19)
[2017-01-25] MEDS: THIAMINE HCL 100 MG TAB PO SCH (08:19)
[2017-01-25] MEDS: FOLIC ACID 1 MG TAB PO SCH (08:19)
[2017-01-25] MEDS: CITALOPRAM 20 MG TAB PO SCH (08:19)
[2017-01-25] MEDS: MULTIVITAMINS 1 EACH TAB PO SCH (08:19)
[2017-01-25] MEDS: GABAPENTIN 300 MG CAP PO SCH ×3 (08:19→20:53)
[2017-01-25] MEDS: buPROPion SR 150 MG TAB PO SCH (08:19)
--- NOTE | 2017-01-25 10:51 | SOAPPROG ---
SOAP Progress Note Assessment/Plan: Assessment: * Debility and cognitive impairment status post alcohol withdrawal and alcohol withdrawal seizure on 01/15/17. Initial FIM 62 as of 01/25/17. Ambulated 80' CGA yesterday, 150 SBA today 01/25/17, with FWW. Did 9 stairs 1 rail SBA, cues for sequencing. ADLs set-up/SBA. Continue physical and occupational therapy to optimize mobility and activities of daily living. 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 Moderate impairment in attn. exec fn, problem solving, working memory, with decreased insight. Impaired auditory and written comprehension. Could not interpret a medication prescription. Continue Speech and Language Pathology. Will likely need supervision re critical cognitive tasks after discharge. * Elevated blood pressure. Treat for HTN. Started amlodipine 2.5 mg QD on . Renal fn wnl. Had 2nd dose 01/24/17 evening for elevated BP. Continue to monitor; consider increasing dose to 5 mg QD. * Alcohol abuse and dependence. Social Work to evaluate resources for after his discharge from inpatient rehabilitation. Initiate naltrexone 50 mg PO qd starting 01/25/17. Advise follow-up with addictions specialist after discharge. * Anemia, gradual worsening during his hospitalization. Slight worsening on CBC 01/24/17. Hemoccult stool neg X 1 as of 01/25/17. Start PPI as he has h/o duodenal ulcer and is on enoxaparin. Chronic/stable conditions: * History of gout. Chart review reveals an elevated uric acid at 9.1 in May of 2015. Uric acid not elevated, 5.3, on labs 01/24/17. R thumb feels better after drainage of swelling. No crystals in fluid; not enough fluid obtained for other studies. No S/Sx infection. * Compression fracture, 12th thoracic vertebra. Vitamin D level wnl. Consider bone density scan after discharge. At risk for osteoporosis due to EtOHism. * Olecranon bursitis? No swelling and minimal symptoms. * Polyneuropathy. Continue gabapentin, and consider adjusting if he does not have sufficient relief for sleep and to be able to participate in therapies. Attended staffing, 15 minutes. Discussed with case management, nursing, dietitian, PT, OT, INSTRUMENT ASSEMBLY SUPERVISOR. Unclear home situation; has esophageal cancer and will be getting surgery in January. He will likely need continued help with cognitive functions after discharge. He may be hiring help at home. Discharge date set for 01/30/2017. Current level of function, rehabilitation goals and discharge date were discussed with the patient who agreed. 01/25/17 11:34 Subjective: Right thumb feels better after drainage procedure yesterday. He reports swelling had been there for weeks to months. Has mild right elbow pain over the olecranon. Desires to go home soon. No fevers, chills, cough, dyspnea. Objective: Vital Signs Temp Pulse Resp BP Pulse Ox 36.6 C 76 16 123/85 H 93 01/25/17 07:58 01/25/17 07:58 01/25/17 07:58 01/25/17 07:58 01/25/17 07:58 Laboratory Results 01/24/17 06:00 01/24/17 06:00 01/24/17 01/25/17 01/26/17 05:59 05:59 05:59 Intake Total 538 1320 480 Output Total 400 1850 Balance 138 -530 480 - Time Spent With Patient Time Spent With Patient: Greater than 35 minutes floor time today, including more than 50% of time in coordination of care during staffing meeting, and counseling patient together with psych social worker. Physical Exam - Physical Exam General Appearance: WD/WN, alert, no apparent distress Respiratory: normal breath sounds, No crackles, No rhonchi, No wheezing Cardiac/Chest: regular rate, rhythm, No edema Skin: normal color, warm/dry Neuro/Psych: alert, normal mood/affect, oriented x 3 ICD10 Worksheet Patient Problems: Problems Problem Status Onset Alcohol intoxication Acute Alcohol withdrawal Acute Alcoholism Acute Intracranial hemorrhage Acute Perforation of duodenal ulcer Acute Withdrawal seizures Acute
[2017-01-25] MEDS: NALTREXONE HCL 50 MG TAB PO SCH (17:37)
[2017-01-25] MEDS: ACETAMINOPHEN 325 MG TAB PO PRN (18:02)
[2017-01-26] MEDS: ACETAMINOPHEN 325 MG TAB PO PRN ×2 (03:23→19:31)
[2017-01-26] MEDS: FOLIC ACID 1 MG TAB PO SCH (09:03)
[2017-01-26] MEDS: NALTREXONE HCL 50 MG TAB PO SCH (09:03)
[2017-01-26] MEDS: THIAMINE HCL 100 MG TAB PO SCH (09:03)
[2017-01-26] MEDS: MULTIVITAMINS 1 EACH TAB PO SCH (09:03)
[2017-01-26] MEDS: CITALOPRAM 20 MG TAB PO SCH (09:03)
[2017-01-26] MEDS: GABAPENTIN 300 MG CAP PO SCH (09:04)
[2017-01-26] MEDS: buPROPion SR 150 MG TAB PO SCH (09:04)
[2017-01-26] MEDS: PANTOPRAZOLE SODIUM 40 MG TAB PO SCH (09:04)
[2017-01-26] MEDS: ENOXAPARIN 40 MG/0.4 ML SYR SC SCH (09:05)
--- NOTE | 2017-01-26 11:55 | SOAPPROG ---
SOAP Progress Note Assessment/Plan: Assessment: * Debility and cognitive impairment status post alcohol withdrawal and alcohol withdrawal seizure on 01/15/17. Initial FIM 62 as of 01/25/17. Ambulated 150' SBA 01/25/17, with FWW. Did 9 stairs 1 rail SBA, cues for sequencing. ADLs set- up/SBA. Rangel balace inventory 36/56, moderate fall risk. Continue physical and occupational therapy to optimize mobility and activities of daily living. 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 Moderate impairment in attn. exec fn, problem solving, working memory, with decreased insight. Impaired auditory and written comprehension. Could not interpret a medication prescription. Continue Speech and Language Pathology. Will likely need supervision re critical cognitive tasks after discharge. * Elevated blood pressure. Treat for HTN. Started amlodipine 2.5 mg QD on . Renal fn wnl. Had 2nd dose 01/24/17 evening for elevated BP. Continue to monitor; consider increasing dose to 5 mg QD. * Right elbow and wrist pain. Unclear etiology. Not clinically consistent with gout and uric acid was low normal at 5.3. Trial of celecoxib 100 mg twice daily. * Alcohol abuse and dependence. Social Work to evaluate resources for after his discharge from inpatient rehabilitation. Initiate naltrexone 50 mg PO qd starting 01/25/17. Advise follow-up with addictions specialist after discharge. * Polyneuropathy. Continue gabapentin; increased dose from 300 mg morning and midday and 600 at HS to 600 mg three times daily starting 01/26/2017. Monitor for adequacy of control of neuropathic pain. * Anemia, gradual worsening during his hospitalization. Slight worsening on CBC 01/24/17. Hemoccult stool neg X 1 as of 01/25/17. Start PPI as he has h/o duodenal ulcer and is on enoxaparin. Chronic/stable conditions: * History of gout. Chart review reveals an elevated uric acid at 9.1 in May of 2015. Uric acid not elevated, 5.3, on labs 01/24/17. R thumb feels better after drainage of swelling. No crystals in fluid; not enough fluid obtained for other studies. No S/Sx infection. * Compression fracture, 12th thoracic vertebra. Vitamin D level wnl. Consider bone density scan after discharge. At risk for osteoporosis due to EtOHism. * Prophylaxis. Mobility is much improved: Will discontinue enoxaparin starting 12/31/2016. Continue pantoprazole for now though celecoxib is relatively sparing of peptic ulcer disease risk, however he has a history of duodenal ulcer. Unclear home situation; has esophageal cancer and will be getting surgery in January. He will likely need continued help with cognitive functions after discharge. He may be hiring help at home. Discharge date set for 01/30/2017. Current level of function, rehabilitation goals and discharge date were discussed with the patient who agreed. 01/26/17 12:01 Subjective: Reports neuropathic pain in arms and legs. Recurs about 1-1/2 hours before next dose of gabapentin is due. Also has right elbow pain and right wrist pain. There is no tenderness of the elbow. Wrist pain occurs mostly with ulnar deviation of the hand. Slept well overall, but was up at about 3 in the morning asking for a acetaminophen. Objective: Vital Signs Temp Pulse Resp BP Pulse Ox 37.2 C 83 18 134/94 H 92 01/26/17 07:01 01/26/17 07:01 01/26/17 07:01 01/26/17 08:00 01/26/17 07:01 Laboratory Results 01/24/17 06:00 01/24/17 06:00 01/25/17 01/26/17 01/27/17 05:59 05:59 05:59 Intake Total 1320 1440 Output Total 1850 1301 1200 Balance -530 139 -1200 Physical Exam - Physical Exam General Appearance: WD/WN, alert, no apparent distress Respiratory: No respiratory distress, No accessory muscle use Skin: normal color, warm/dry Extremities: other (Right elbow nontender with no swelling. Right wrist with normal range of motion, nontender, no swelling but with some pain with ulnar deviation of the hand.) Neuro/Psych: no motor/sensory deficits, alert, normal mood/affect, oriented x 3 , abnormal gait (Ataxic, with front wheeled walker.) ICD10 Worksheet Patient Problems: Problems Problem Status Onset Alcohol intoxication Acute Alcohol withdrawal Acute Alcoholism Acute Intracranial hemorrhage Acute Perforation of duodenal ulcer Acute Withdrawal seizures Acute
[2017-01-27] MEDS: ACETAMINOPHEN 325 MG TAB PO PRN ×2 (02:28→06:40)
[2017-01-27] MEDS: CITALOPRAM 20 MG TAB PO SCH (08:41)
[2017-01-27] MEDS: buPROPion SR 150 MG TAB PO SCH (08:41)
[2017-01-27] MEDS: PANTOPRAZOLE SODIUM 40 MG TAB PO SCH (08:41)
[2017-01-27] MEDS: THIAMINE HCL 100 MG TAB PO SCH (08:41)
[2017-01-27] MEDS: FOLIC ACID 1 MG TAB PO SCH (08:41)
[2017-01-27] MEDS: MULTIVITAMINS 1 EACH TAB PO SCH (08:41)
[2017-01-27] MEDS: NALTREXONE HCL 50 MG TAB PO SCH (08:41)
--- NOTE | 2017-01-27 12:35 | SOAPPROG ---
SOAP Progress Note Assessment/Plan: Assessment: * Debility and cognitive impairment status post alcohol withdrawal and alcohol withdrawal seizure on 01/15/17. Initial FIM 62 as of 01/25/17. Ambulated 150' SBA 01/25/17, with FWW. Did 9 stairs 1 rail SBA, cues for sequencing. ADLs set- up/SBA. Rangel balance inventory 36/56 on 01/25/17, moderate fall risk; however I in rook with trekking pole as of 01/27/17. Continue physical and occupational therapy to optimize mobility and activities of daily living. 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 Moderate impairment in attn. exec fn, problem solving, working memory, with decreased insight. Impaired auditory and written comprehension. Could not interpret a medication prescription. Improving. Continue Speech and Language Pathology. Will likely need supervision re critical cognitive tasks after discharge. * Elevated blood pressure. Treat for HTN. Started amlodipine 2.5 mg QD on . Renal fn wnl. Had 2nd dose 01/24/17 evening for elevated BP. Continues elevated; we will increase dose to 5 mg as of 01/28/2017. * Right elbow and wrist pain. Unclear etiology. Not clinically consistent with gout and uric acid was low normal at 5.3. Trial of celecoxib 100 mg twice daily without significant improvement. Repeat CBC and uric acid; check hepatitis-B and C antibodies; check ESR, CRP, anti CCP antibodies, rheumatoid factor. Consider short course of prednisone depending on lab results. * Alcohol abuse and dependence. Social Work to evaluate resources for after his discharge from inpatient rehabilitation. Initiate naltrexone 50 mg PO qd starting 01/25/17. Advise follow-up with addictions specialist after discharge. * Polyneuropathy. Continue gabapentin; increased dose from 300 mg morning and midday and 600 at HS to 600 mg three times daily starting 01/26/2017. Monitor for adequacy of control of neuropathic pain. * Anemia, gradual worsening during his hospitalization. Slight worsening on CBC 01/24/17. Hemoccult stool neg X 1 as of 01/25/17. Start PPI as he has h/o duodenal ulcer and is on enoxaparin. Chronic/stable conditions: * History of gout. Chart review reveals an elevated uric acid at 9.1 in May of 2015. Uric acid not elevated, 5.3, on labs 01/24/17. R thumb feels better after drainage of swelling. No crystals in fluid; not enough fluid obtained for other studies. No S/Sx infection. * Compression fracture, 12th thoracic vertebra. Vitamin D level wnl. Consider bone density scan after discharge. At risk for osteoporosis due to EtOHism. * Prophylaxis. Mobility is much improved: Will discontinue enoxaparin starting 12/31/2016. Continue pantoprazole for now though celecoxib is relatively sparing of peptic ulcer disease risk, however he has a history of duodenal ulcer. Unclear home situation; has esophageal cancer and will be getting surgery in January. He will likely need continued help with cognitive functions after discharge. He may be hiring help at home. Discharge date set for 01/30/2017. Current level of function, rehabilitation goals and discharge date were discussed with the patient who agreed. 01/27/17 12:36 Subjective: Continues to complain of joint pain. It is especially severe at night. He asks for a stronger pain medicine for pain is sharp in the right elbow he also notices increased swelling over the right elbow, the right thumb, and the left 4th digit proximal inter pharyngeal joint. Objective: Vital Signs Temp Pulse Resp BP Pulse Ox 36.8 C 85 16 143/93 H 96 01/27/17 08:00 01/27/17 08:00 01/27/17 08:00 01/27/17 08:00 01/27/17 08:00 Laboratory Results 01/24/17 06:00 01/24/17 06:00 01/26/17 01/27/17 01/28/17 05:59 05:59 05:59 Intake Total 1440 1240 360 Output Total 1301 4100 150 Balance 139 -2860 210 Physical Exam - Physical Exam General Appearance: WD/WN, alert, no apparent distress Respiratory: No respiratory distress, No accessory muscle use Skin: normal color, warm/dry Extremities: other (Mild swelling over right elbow olecranon and distal posterior humerus. Swelling has returned over the right thumb interphalangeal joint. Mild swelling of the left hand 4th digit proximal interphalangeal joint. No erythema or warmth over the joints.) Neuro/Psych: alert, normal mood/affect, oriented x 3, abnormal gait (With trekking pole, mild ataxia. Slight widened stance. No LOB. Normal pace.) ICD10 Worksheet Patient Problems: Problems Problem Status Onset Alcohol intoxication Acute Alcohol withdrawal Acute Alcoholism Acute Intracranial hemorrhage Acute Perforation of duodenal ulcer Acute Withdrawal seizures Acute
[2017-01-27 18:56] LABS: % IMMATURE GRANULYOCYTES 1.6 % (0.0-1.1); ABSOLUTE IMMATURE GRANULOCYTES 0.19 10^3/uL (0.00-0.10); ADD DIFF? NO; ADD MORPH? NO; ADD SCAN? NO; ATYPICAL LYMPHOCYTE FLAG 10 (0-99); FRAGMENT RBC FLAG 0 (0-99); HEMATOCRIT 41.3 % (40.0-51.0); HEMOGLOBIN 13.6 g/dL (13.7-17.5); LEFT SHIFT FLG 20 (0-99); LIPEMIA HEMOLYSIS FLAG 80 (0-99); MEAN CELL HEMOGLOBIN 31.1 pg (27.9-34.1); MEAN CELL HEMOGLOBIN CONCENTR. 32.9 g/dL (32.4-36.7); MEAN CELL VOLUME 94.5 fL (81.5-99.8); PLATELET CLUMPS FLAG 0 (0-99); PLATELET COUNT 516 10^3/uL (150-400); RED BLOOD CELL COUNT 4.37 10^6/uL (4.40-6.38); RED CELL DISTRIBUTION WIDTH 12.6 % (11.5-15.2)
[2017-01-27 19:07] LABS: SEDIMENTATION RATE 59 MM/HR (0-20)
[2017-01-27 19:12] LABS: URIC ACID 6.3 mg/dL (3.5-8.5)
[2017-01-28] MEDS: FOLIC ACID 1 MG TAB PO SCH (08:58)
[2017-01-28] MEDS: PANTOPRAZOLE SODIUM 40 MG TAB PO SCH (08:58)
[2017-01-28] MEDS: THIAMINE HCL 100 MG TAB PO SCH (08:58)
[2017-01-28] MEDS: CITALOPRAM 20 MG TAB PO SCH (08:58)
[2017-01-28] MEDS: MULTIVITAMINS 1 EACH TAB PO SCH (08:58)
[2017-01-28] MEDS: buPROPion SR 150 MG TAB PO SCH (08:58)
[2017-01-28] MEDS: amLODIPine BESYLATE 5 MG TAB PO SCH (09:01)
[2017-01-28] MEDS: NALTREXONE HCL 50 MG TAB PO SCH (09:01)
--- NOTE | 2017-01-28 15:20 | SOAPPROG ---
SOAP Progress Note Assessment/Plan: Assessment: * Debility and cognitive impairment status post alcohol withdrawal and alcohol withdrawal seizure on 01/15/17. Initial FIM 62 as of 01/25/17. Ambulated 150' SBA 01/25/17, with FWW. Did 9 stairs 1 rail SBA, cues for sequencing. ADLs set- up/SBA. Rangel balance inventory 36/56 on 01/25/17, moderate fall risk; however I in room with trekking pole as of 01/27/17. Continue physical and occupational therapy to optimize mobility and activities of daily living. 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 Moderate impairment in attn. exec fn, problem solving, working memory, with decreased insight. Impaired auditory and written comprehension. Could not interpret a medication prescription. Improving. Continue Speech and Language Pathology. Will likely need supervision re critical cognitive tasks after discharge. * Elevated blood pressure. Treat for HTN. Started amlodipine 2.5 mg QD on . Renal fn wnl. Had 2nd dose 01/24/17 evening for elevated BP. Continues elevated; we will increase dose to 5 mg as of 01/28/2017. * Right elbow and wrist pain. Unclear etiology. Not clinically consistent with gout and uric acid was low normal at 5.3. Trial of celecoxib 100 mg twice daily without significant improvement. Improved overnight with celecoxib 200 mg. CBC with leukocytosis. ESR and CRP are elevated. Rheumatoid factor is not elevated. Negative for hepatitis. anti CCP antibodies and CUCO are pending. Continue pain control. Will not initiate prednisone as diagnosis is unclear. Advise Rheumatology followup after discharge. * Alcohol abuse and dependence. Social Work to evaluate resources for after his discharge from inpatient rehabilitation. Initiate naltrexone 50 mg PO qd starting 01/25/17. Advise follow-up with addictions specialist after discharge. * Polyneuropathy. Continue gabapentin; increased dose from 300 mg morning and midday and 600 at HS to 600 mg three times daily starting 01/26/2017. Monitor for adequacy of control of neuropathic pain. * Anemia, gradual worsening during his hospitalization. Slight worsening on CBC 01/24/17. Hemoccult stool neg X 1 as of 01/25/17. Start PPI as he has h/o duodenal ulcer and is on enoxaparin. Chronic/stable conditions: * History of gout. Chart review reveals an elevated uric acid at 9.1 in May of 2015. Uric acid not elevated, 5.3, on labs 01/24/17. R thumb feels better after drainage of swelling. No crystals in fluid; not enough fluid obtained for other studies. No S/Sx infection. * Compression fracture, 12th thoracic vertebra. Vitamin D level wnl. Consider bone density scan after discharge. At risk for osteoporosis due to EtOHism. * Prophylaxis. Mobility is much improved: Will discontinue enoxaparin starting 12/31/2016. Continue pantoprazole for now though celecoxib is relatively sparing of peptic ulcer disease risk, however he has a history of duodenal ulcer. Unclear home situation; has esophageal cancer and will be getting surgery in January. He will likely need continued help with cognitive functions after discharge. He may be hiring help at home. Discharge date set for 01/30/2017. Current level of function, rehabilitation goals and discharge date were discussed with the patient who agreed. 01/28/17 15:16 Subjective: Pain in right elbow and right wrist better controlled with increased dose of celecoxib last night. Has foot pain as well. Denies swelling or tenderness, other than swelling of joint in the right thumb. Right thumb does not hurt. Denies fevers, chills, cough, dyspnea. Slept well. Objective: Vital Signs Temp Pulse Resp BP Pulse Ox 36.8 C 63 18 146/96 H 93 01/28/17 06:47 01/28/17 06:47 01/28/17 06:47 01/28/17 09:01 01/28/17 06:47 Laboratory Results 01/27/17 13:00 01/24/17 06:00 01/27/17 01/28/17 01/29/17 05:59 05:59 05:59 Intake Total 1240 1000 1380 Output Total 4100 150 Balance -2860 850 1380 Physical Exam - Physical Exam General Appearance: WD/WN, alert, no apparent distress Respiratory: No respiratory distress, No accessory muscle use Skin: normal color, warm/dry Extremities: swelling (Right thumb inter pharyngeal joint.) Neuro/Psych: no motor/sensory deficits, alert, normal mood/affect, oriented x 3 , abnormal gait (Mildly ataxic using trekking pole, ambulating independently.) ICD10 Worksheet Patient Problems: Problems Problem Status Onset Alcohol intoxication Acute Alcohol withdrawal Acute Alcoholism Acute Intracranial hemorrhage Acute Perforation of duodenal ulcer Acute Withdrawal seizures Acute
[2017-01-28 18:45] LABS: ANTINUCLEAR ANTIBODIES SCREEN 1.75 UNITS (<=1.00)
[2017-01-28 19:08] VITALS: O2SAT 95
[2017-01-28] MEDS: ACETAMINOPHEN 325 MG TAB PO PRN (19:43)
[2017-01-29] MEDS: ACETAMINOPHEN 325 MG TAB PO PRN (06:21)
[2017-01-29 06:43] VITALS: PULSE 130; RESP 20; TEMP 98.6
[2017-01-29] MEDS: THIAMINE HCL 100 MG TAB PO SCH (08:45)
[2017-01-29] MEDS: MULTIVITAMINS 1 EACH TAB PO SCH (08:45)
[2017-01-29] MEDS: amLODIPine BESYLATE 5 MG TAB PO SCH (08:45)
[2017-01-29] MEDS: buPROPion SR 150 MG TAB PO SCH (08:46)
[2017-01-29] MEDS: CITALOPRAM 20 MG TAB PO SCH (08:46)
[2017-01-29] MEDS: NALTREXONE HCL 50 MG TAB PO SCH (08:46)
[2017-01-29] MEDS: PANTOPRAZOLE SODIUM 40 MG TAB PO SCH (08:46)
[2017-01-29] MEDS: FOLIC ACID 1 MG TAB PO SCH (08:46)
[2017-01-29 08:47] VITALS: BP 151/99
--- NOTE | 2017-01-29 14:29 | PDOREHIP ---
Admission [facility] - Admission - 3 Day Assessment Period Admission Date/Day 1: 01/23/17 Day 2: 01/24/17 Day 3: 01/25/17 Discharge [facility] - Discharge - 3 Day Assessment Period 2 Days Prior to Anticipated Discharge Date: 01/28/17 1 Day Prior to Anticipated Discharge Date: 01/29/17 Anticipated Discharge Date: 01/30/17 - Discharge Skin Conditions Unhealed Pressure Ulcer (1 or more/Stage 1 or >)-Discharge: 0. No
--- NOTE | 2017-01-29 15:57 | SOAPPROG ---
SOAP Progress Note Assessment/Plan: Assessment: * Debility and cognitive impairment status post alcohol withdrawal and alcohol withdrawal seizure on 01/15/17. Initial FIM 62 as of 01/25/17; improved to 105 as of 01/29/17. Independent mobility and ADLs. 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 Much improved. Working on higher level activities with MERCHANDISE WORKER. * HTN. Started amlodipine 2.5 mg QD on 01/24/17. Renal fn wnl. Had 2nd dose evening for elevated BP. Titrated to 5 mg as of 01/28/2017. Still above target. Further evaluation and treatment per PCP after discharge. * Right elbow and wrist pain. Unclear etiology. Not clinically consistent with gout and uric acid was low normal at 5.3. Trial of celecoxib 100 mg twice daily without significant improvement. Improved overnight with celecoxib 200 mg. CBC with leukocytosis. ESR and CRP are elevated. Rheumatoid factor is not elevated. Negative for hepatitis. anti CCP antibodies and CUCO are pending. Continue pain control. Will not initiate prednisone as diagnosis is unclear. Advise Rheumatology followup after discharge. * Alcohol abuse and dependence. Social Work to evaluate resources for after his discharge from inpatient rehabilitation. Initiate naltrexone 50 mg PO qd starting 01/25/17. Advise follow-up with addictions specialist after discharge. * Polyneuropathy. Continue gabapentin; increased dose from 300 mg morning and midday and 600 at HS to 600 mg three times daily starting 01/26/2017. Monitor for adequacy of control of neuropathic pain. * Anemia, gradual worsening during his hospitalization. Slight worsening on CBC 01/24/17. Hemoccult stool neg X 1 as of 01/25/17. Start PPI as he has h/o duodenal ulcer and is on enoxaparin. Chronic/stable conditions: * History of gout. Chart review reveals an elevated uric acid at 9.1 in May of 2015. Uric acid not elevated, 5.3, on labs 01/24/17. R thumb feels better after drainage of swelling. No crystals in fluid; not enough fluid obtained for other studies. No S/Sx infection. * Compression fracture, 12th thoracic vertebra. Vitamin D level wnl. Consider bone density scan after discharge. At risk for osteoporosis due to EtOHism. * Prophylaxis. Mobility is much improved: Will discontinue enoxaparin starting 12/31/2016. Continue pantoprazole for now though celecoxib is relatively sparing of peptic ulcer disease risk, however he has a history of duodenal ulcer. Attended staffing, 15 minutes. Discussed with case management, nursing, PT, OT , MERCHANDISE WORKER. Discharge home today. Outpatient S speech and language pathology to continue higher level cognitive activities. Expect return to work in approximately 1 month. Advise pre driving screen by occupational therapy. Follow up with psychiatrist, psychologist, neurologist and primary care provider. 01/29/17 15:51 Subjective: No complaints. Feels ready to go home. Objective: Vital Signs Temp Pulse Resp BP Pulse Ox 37.0 C 130 H 20 151/99 H 95 01/29/17 06:00 01/29/17 06:00 01/29/17 06:00 01/29/17 08:45 01/29/17 06:00 Laboratory Results 01/27/17 13:00 01/24/17 06:00 01/28/17 01/29/17 01/30/17 05:59 05:59 05:59 Intake Total 1000 1620 300 Output Total 150 Balance 850 1620 300 - Time Spent With Patient Time Spent With Patient: Greater than 35 minutes floor time today, including more than 50% of time in coordination of care during staffing meeting, and counseling patient. Physical Exam - Physical Exam General Appearance: WD/WN, alert, no apparent distress Respiratory: No respiratory distress, No accessory muscle use Skin: normal color, warm/dry Neuro/Psych: no motor/sensory deficits, alert, normal mood/affect, oriented x 3 , abnormal gait (Mild ataxia, with trekking pole) ICD10 Worksheet Patient Problems: Problems Problem Status Onset Alcohol intoxication Acute Alcohol withdrawal Acute Alcoholism Acute Intracranial hemorrhage Acute Perforation of duodenal ulcer Acute Withdrawal seizures Acute
--- NOTE | 2017-01-29 17:33 | GDS ---
[f rep st] DISCHARGE SUMMARY ADMITTING DIAGNOSIS: Debility and encephalopathy, status post alcohol withdrawal and alcohol withdrawal seizure. DISCHARGE DIAGNOSIS: Debility and encephalopathy, status post alcohol withdrawal and alcohol withdrawal seizure. ADDITIONAL DIAGNOSES: 1. Hypertension. 2. Polyarticular arthralgia. CONSULTATIONS: There were none. PROCEDURES: There were none. COMPLICATIONS: There were none. HOSPITAL COURSE: This patient came to [facility] inpatient rehabilitation from [facility], where he had been hospitalized on 01/15/2017 with alcohol withdrawal seizures. He was encephalopathic. He was treated with the CIWA protocol. He had alcoholic hepatitis with elevated AST and ALT, which resolved. He had back pain and a thoracic spine CT was done, which showed a T12 compression fracture of indeterminate age. He had polyneuropathy in the hospital with pain in his hands and his feet. 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 He had a normal head CT. C-spine MRI showed mild stenosis at the C6-7 level and mild multilevel foraminal narrowing. TSH, folate and B12 were normal. He had marked improvement during his stay. His initial functional independence measure was 62 on 01/25/2017; this is consistent with needing assistance with all mobility-related activities and activities of daily living at the alf level. This improved to 105 as of 01/29/2017, which is consistent with independent living. He was independent in mobility and in activities of daily living. He had considerable initial improvement in his cognitive function but was ultimately working on higher level activities with Speech and Language Pathology. He was noted to have an elevated blood pressure during his stay and was treated initially with amlodipine 2.5 mg daily starting 01/24/2017. Renal function was noted to be within normal limits. Amlodipine was titrated to 5 mg daily as of 01/28/2017. His blood pressure continued to be above target, and on 01/29/2017 in the morning, blood pressure was 151/99. Regarding alcohol abuse and dependence, he was begun on naltrexone 50 mg p.o. daily on 01/25/2017 to reduce his urge to drink. He reported that he had been in inpatient alcohol rehabilitation facilities on 2 occasions and had gone to Alcoholics Anonymous for 2 consecutive years and that none of these interventions were successful in achieving abstinence. Thus, naltrexone was added as another modality. He met with a social work supervisor and followup with psychologist as well as psychiatrist was arranged. He was strongly encouraged for sobriety. He had anemia which had gradually worsened during his hospitalization. However , it stabilized and improved during his stay. On 01/24/2017, hemoglobin was 12.6 and hematocrit was 37.8, and on 01/27/2017, hemoglobin was 13.6 and hematocrit was 41.3. There was an elevated white count noted with white blood cells of 11.65. There was somewhat of a left shift with 1.6% immature granulocytes. He had an elevated erythrocyte sedimentation rate at 59. Stool Hemoccult was negative x3. He was started on proton pump inhibitor because he had a history of duodenal ulcer. He had polyarticular arthralgia in the right elbow, right wrist and swelling in the interphalangeal joint of the right thumb. He was referred to ultrasound for drainage of the swelling over the thumb. There were no crystals seen but there was not enough sample to do any other studies of the fluid obtained. He was treated with celecoxib with good relief of pain, especially when the evening dose was titrated from 100 mg to 200 mg. He continued to receive 100 mg in the morning. It was recommended that he follow up with Rheumatology after discharge. Other evaluation regarding the polyarthralgia was done. His rheumatoid factor was normal at 10.2, he had a mildly elevated CUCO screen at 1.75 with 1:80 titer and nucleolar pattern . He was negative for hepatitis B or hepatitis C. Given the finding of a compression fracture during his stay, a vitamin D level was checked and was within normal limits. He was advised to consider a bone density scan after discharge. DISCHARGE PLAN: Condition upon discharge is good. ACTIVITY: Ad param but no driving until predriving screen by Occupational Therapy is completed. DIET: Regular. DATES OF NEXT APPOINTMENTS: He has followup scheduled with primary care provider, Dr. Chandrakant Calvin, on 02/13/2017 at 4 p.m.; with psychiatrist Dr. Frederick Garrison, on 02/13/2017 at 2 p.m. and with neurologist, Dr. Lopez, on 2016 at 2 p.m. Additionally, he has a referral to psychologist Ayden Casiano. MEDICATIONS UPON DISCHARGE: 1. Amlodipine 5 mg p.o. daily. 2. Celecoxib 100 mg q.a.m. and 200 mg at bedtime. 3. Naltrexone 50 mg p.o. daily. 4. Pantoprazole 40 mg p.o. daily. 5. Multivitamin p.o. daily. 6. Acetaminophen 650 mg q.4 hours p.r.n. 7. Folic acid 1 mg p.o. daily. 8. Thiamine 100 mg p.o. daily. 9. Bupropion SR 150 mg p.o. daily. 10. Citalopram 20 mg p.o. daily. 11. Gabapentin 300 mg Q 0800 & 1400, 600 mg QHS ISSUES TO BE ADDRESSED AT FOLLOWUP: 1. Alcohol abuse and dependence. Continue naloxone. Continue thiamine and folate in case he resumes drinking. Follow up with psychologist and psychiatrist. 2. Polyarthralgia. Continue celecoxib for pain control. Follow up with primary care provider, Dr. Calvin, and consider referral to ore dryer. Though there were no crystals seen in the fluid from the thumb, this does not rule out gout. He has had a history of an elevated uric acid of 9.1 in May of 2016; however, uric acid was 6.3 when tested during this hospitalization. 3. Hypertension. He has had initial response to amlodipine. Given his level of his blood pressure elevation, he will likely need a second agent and he should follow up with primary care provider Dr. Calvin. 4. Polyneuropathy. He will continue gabapentin and follow up with neurologist Dr. Lopez. 5. Compression fracture, 12th thoracic vertebra, with normal vitamin D level. He is at risk for osteoporosis due to his alcoholism. He should consider a bone density scan, and he can follow up on this issue with his primary care provider. Copy requested to: Frederick Casiano /[id number]/MODL MTDD
== END 2017-01-29 15:38 | disposition home or self-care (01) | DRG 897 ==
LOC: BREH 11:30
PROVIDERS: ADMIT Internal Medicine; ATTEND Internal Medicine
PROC: F08Z7ZZ Vocational Activities and Functional Community or Work Reintegration Skills Treatment (ICD-10-PCS; principal; 2017-01-23)
PROC: F07M3ZZ Motor Function Treatment of Musculoskeletal System - Whole Body (ICD-10-PCS; principal; 2017-01-23)
PROC: F0636ZZ Communicative/Cognitive Integration Skills Treatment of Neurological System - Whole Body (ICD-10-PCS; principal; 2017-01-23)
DX: F10.288 Alcohol dependence with other alcohol-induced disorder (principal); R41.89 Other symptoms and signs involving cognitive functions and awareness; G62.1 Alcoholic polyneuropathy; R53.1 Weakness; D64.9 Anemia, unspecified; M10.9 Gout, unspecified; Z87.81 Personal history of (healed) traumatic fracture; Z87.820 Personal history of traumatic brain injury; I10 Essential (primary) hypertension
CPT/HCPCS: 86705-90; 92507-GN; 92522-GN; 97110-GP; 97112-GP; 97116-GP; 97140-GO; 97162-GP; 97166-GO; 97530-GO; 97530-GP; 97532-GO; 97535-GO; G0472; J1650

== ENCOUNTER → 2017-02-08 | Outpatient (CLI) | payer OTHER | LOC: BMCIMAGING 15:23 | PROVIDERS: ATTEND Internal Medicine | DX: R22.43 Localized swelling, mass and lump, lower limb, bilateral (principal); R22.33 Localized swelling, mass and lump, upper limb, bilateral; M06.4 Inflammatory polyarthropathy; R93.6 Abnormal findings on diagnostic imaging of limbs ==

== ENCOUNTER 2017-05-11 12:03 | Inpatient (IN) | payer OTHER ==
[2017-05-11] MEDS ORDERED: NS 500 ML IV ONE (12:24)
[2017-05-11] MEDS ORDERED: PROMETHAZINE HCL 25 MG/ML INJ IVP ONE (12:45)
[2017-05-11] MEDS ORDERED: LORazepam 2 MG/ML INJ IVP ONE ×2 (12:45→13:28)
[2017-05-11] MEDS ORDERED: NS 1,000 ML IV ONE ×2 (12:45→12:58)
--- NOTE | 2017-05-11 12:46 | EDPHY ---
H & P Time Seen by Provider: 05/11/17 12:31 HPI/ROS: CHIEF COMPLAINT: Nausea and vomiting HISTORY OF PRESENT ILLNESS: Patient history of alcoholism in last drink was on Saturday or Saturday morning of this week. History of admission to ICU in the past for alcohol withdrawal. He presents with his 3rd episode in the past 6 weeks of nausea and vomiting. 1st one was 6 weeks ago and was improved by Zofran prescribed by [facility] office. The 2nd one was 2 weeks ago and also improved with oral Zofran. 3rd episode started this Saturday evening or morning and has had multiple episodes of nausea and vomiting which are severe. Feels dehydrated. Not associated with abdominal pain or diarrhea or headache. No blood or coffee grounds in the emesis, no melena. He does have associated feeling of being shaky but no hallucinations and no seizures. REVIEW OF SYSTEMS: Eye: no change in vision ENT: no sore throat Cardiac: no chest pain or syncope Pulmonary: no cough or SOB Abdomen: HPI Musculoskeletal: no back pain Skin: no rash Neuro: no headache Constitutional: no fever : no urinary symptoms A comprehensive 10 point review of systems is otherwise negative aside from elements mentioned in the history of present illness. PAST MEDICAL HISTORY: Discharge summary dated 01/23/2017 personally reviewed including seizure probably from alcohol withdrawal, alcoholic hepatitis, chronic compression fracture, polyneuropathy. Perforated duodenal ulcer. Depression. Previous history of a fall with traumatic intracranial hemorrhage. Social history: Last drink as above, here with daughter General Appearance: Alert and conversant, cooperative. Eyes: No scleral icterus. ENT, Mouth: Dry mucous membranes Respiratory: Normal respiratory effort, breath sounds equal, lungs are clear to auscultation. Cardiovascular: Regular rate and rhythm. Gastrointestinal: Abdomen is soft and non tender. The patient is ticklish. Does not have any rebound or guarding. Bowel sounds present. Neurological: Alert and oriented x3. Normally conversant. Face symmetric, normal movement and sensation in all extremities. He is tremulous but does not have pronator drift and [id number] is normal bilaterally. Skin: Warm and dry, no rashes. Musculoskeletal: No peripheral edema and no joint swelling. Psychiatric: Not agitated. Emergency Department course/MDM: Ativan 1 mg IV, Phenergan 12.5 mg IV, labs to include electrolytes and liver function tests. The patient's timing and his tremor in the emergency department does suggest that it is possible this is due to recurrent alcohol withdrawal. His abdominal exam is benign and I think it is unlikely he has acute surgical abdominal process. 1257: Electrolytes do not require correction, lipase is normal, AST noted as 60. Normal saline 2 L IV. 1327: Now on re-evaluation the patient is seeing 3 children in clown outfits on the other side of the room and is starting to complain about a construction project on the other side of the hallway. According to his daughter he is sitting up and trying to get out of the bed and go messi the children in the clown suits. I think that this point he is developing what appears to be delirium, additional Ativan and admission for possible Precedex or further sedation. Additional 2 mg IV Ativan ordered. Smoking Status: Never smoked Constitutional: Initial Vital Signs Temperature (C) 36.5 C 05/11/17 12:09 Heart Rate 68 05/11/17 12:09 Respiratory Rate 16 05/11/17 12:09 Blood Pressure 185/106 H 05/11/17 12:09 O2 Sat (%) 97 05/11/17 12:09 O2 Delivery Mode Room Air Allergies/Adverse Reactions: No Known Allergies Allergy (Verified 05/11/17 15:53) Home Medications: Medication Instructions Recorded Citalopram [CeleXA 20 MG] 20 mg PO DAILY #30 tab 01/29/17 Gabapentin [Neurontin 300 MG (*)] 300 mg PO 08,14 #60 cap 01/29/17 Gabapentin [Neurontin] 600 mg PO HS #30 tablet 01/29/17 buPROPion SR [Wellbutrin 150mg SR 150 mg PO DAILY #30 tab 01/29/17 (*)] Albuterol [Proventil Inhaler HFA 2 puffs IH Q4 PRN 05/11/17 (*)] Cetirizine [ZyrTEC 10 mg (*)] 10 mg PO DAILY 05/11/17 Fluticasone Nasal [Flonase Nasal 2 sprays NASAL DAILY 05/11/17 [place] (RX)] Indomethacin [Indocin 25 mg (*)] 50 mg PO TID PRN 05/11/17 Multivitamins [Multivitamin (*)] 1 each PO DAILY 05/11/17 Propranolol HCl [Propranolol HCl 120 mg PO DAILY 05/11/17 ER] Medical Decision Making Differential Diagnosis: Differential diagnosis considered for nausea and vomiting including but not limited to alcohol withdrawal, seizure disorder, gastroenteritis, gastritis, appendicitis, and medication side effect. Consult/Admit Bed Type: [place] [address] Critical Care Time: Critical care time spent by me, Dr. Johnston, exclusively with the care of this patient was 35 minutes, exclusive of PA or HISTOLOGY TECHNICIAN time and exclusive of separate procedures. The organ system at risk was neurologic and I ordered multiple doses of IV Ativan, serial exams, consultation with hospitalist, IV fluids; to stabilize the patient and prevent worsening of the patient's condition. - Data Points Laboratory Results: Laboratory Results 05/11/17 12:25 05/11/17 12:25 05/11/17 05/11/17 12:25 12:25 WBC 7.91 10^3/uL 10^3/uL (3.80-9.50) RBC 5.32 10^6/uL 10^6/uL (4.40-6.38) Hgb 16.3 g/dL g/dL (13.7-17.5) Hct 46.7 % % (40.0-51.0) MCV 87.8 fL fL (81.5-99.8) MCH 30.6 pg pg (27.9-34.1) MCHC 34.9 g/dL g/dL (32.4-36.7) RDW 15.4 % H % (11.5-15.2) Plt Count 327 10^3/uL 10^3/uL (150-400) MPV 9.4 fL fL (8.7-11.7) Neut % (Auto) 66.3 % % (39.3-74.2) Lymph % (Auto) 20.7 % % (15.0-45.0) Nolan % (Auto) 11.3 % % (4.5-13.0) Eos % (Auto) 0.5 % L % (0.6-7.6) Baso % (Auto) 0.8 % % (0.3-1.7) Nucleat RBC Rel Count 0.0 % % (0.0-0.2) Absolute Neuts (auto) 5.25 10^3/uL 10^3/uL (1.70-6.50) Absolute Lymphs (auto) 1.64 10^3/uL 10^3/uL (1.00-3.00) Absolute Monos (auto) 0.89 10^3/uL H 10^3/uL (0.30-0.80) Absolute Eos (auto) 0.04 10^3/uL 10^3/uL (0.03-0.40) Absolute Basos (auto) 0.06 10^3/uL 10^3/uL (0.02-0.10) Absolute Nucleated RBC 0.00 10^3/uL 10^3/uL (0-0.01) Immature Gran % 0.4 % % (0.0-1.1) Immature Gran # 0.03 10^3/uL 10^3/uL (0.00-0.10) Sodium 136 mEq/L mEq/L (134-144) Potassium 4.1 mEq/L mEq/L (3.5-5.2) Chloride 92 mEq/L L mEq/L (97-110) Carbon Dioxide 27 mEq/l mEq/l (22-31) Anion Gap 17 mEq/L H mEq/L (8-16) BUN 12 mg/dL mg/dL (7-23) Creatinine 1.0 mg/dL mg/dL (0.7-1.3) Estimated GFR > 60 Glucose 128 mg/dL H mg/dL (70-100) Calcium 9.8 mg/dL mg/dL (8.5-10.4) Total Bilirubin 1.3 mg/dL mg/dL (0.1-1.4) Conjugated Bilirubin 0.2 mg/dL mg/dL (0.0-0.5) Unconjugated Bilirubin 1.1 mg/dL mg/dL (0.0-1.1) AST 60 IU/L H IU/L (17-59) ALT 39 IU/L IU/L (21-72) Alkaline Phosphatase 137 IU/L H IU/L (38-126) Total Protein 8.3 g/dL H g/dL (6.3-8.2) Albumin 4.6 g/dL g/dL (3.5-5.0) Lipase 78 IU/L IU/L (23-300) Medications Given: Thiamine HCl 500 mg/ Sodium (Chloride) 105 mls @ 210 mls/hr IV DAILY LEONELA Stop: 05/13/17 09:29 Last Admin: 05/11/17 15:14 Dose: 105 mls Dexmedetomidine/Sodium Chloride (Precedex 4 Mcg/Ml 100 Ml (Premix)) 100 mls @ 0 mls/hr IV CONT LEONELA; Titrate PRN Reason: Protocol Stop: 11/07/17 18:59 Last Admin: 05/11/17 19:27 Dose: 100 mls Lorazepam (Ativan Injection) 1 mg IVP Q4HRS PRN PRN Reason: Agitation Stop: 11/07/17 17:47 Last Admin: 05/11/17 18:58 Dose: 1 mg Pantoprazole Sodium (Protonix) 40 mg PO DAILY LEONELA Stop: 11/07/17 14:44 Last Admin: 05/11/17 15:10 Dose: 40 mg Discontinued Medications Chlordiazepoxide HCl (Librium) 25 - 50 mg PO Q4HRS PRN PRN Reason: Agitation Stop: 11/07/17 14:24 Last Admin: 05/11/17 15:12 Dose: 50 mg Chlordiazepoxide HCl (Librium) 50 mg PO ONCE ONE Stop: 05/11/17 14:26 Last Admin: 05/11/17 15:10 Dose: 50 mg Sodium Chloride (Ns) 500 mls @ 1,000 mls/hr IV ONCE ONE PRN Reason: Protocol Stop: 05/11/17 12:53 Last Admin: 05/11/17 12:32 Dose: 500 mls Sodium Chloride (Ns) 1,000 mls @ 0 mls/hr IV EDNOW ONE; Wide Open PRN Reason: Protocol Stop: 05/11/17 12:46 Last Admin: 05/11/17 12:57 Dose: 1,000 mls Sodium Chloride (Ns) 1,000 mls @ 0 mls/hr IV EDNOW ONE; Wide Open PRN Reason: Protocol Stop: 05/11/17 12:59 Last Admin: 05/11/17 13:06 Dose: 1,000 mls Lorazepam (Ativan Injection) 1 mg IVP EDNOW ONE Stop: 05/11/17 12:46 Last Admin: 05/11/17 12:57 Dose: 1 mg Lorazepam (Ativan Injection) 2 mg IVP EDNOW ONE Stop: 05/11/17 13:29 Last Admin: 05/11/17 13:31 Dose: 2 mg Promethazine HCl (Phenergan) 12.5 mg IVP EDNOW ONE Stop: 05/11/17 12:46 Last Admin: 05/11/17 12:57 Dose: 12.5 mg Departure - Departure Disposition: [facility] Inpatient Acute Clinical Impression: Nausea & vomiting Qualifiers: Vomiting type: unspecified Vomiting Intractability: non-intractable Qualified Code(s): R11.2 - Nausea with vomiting, unspecified Alcohol withdrawal Qualifiers: Complication of substance-induced condition: with perceptual disturbance Qualified Code(s): F10.232 - Alcohol dependence with withdrawal with perceptual disturbance Condition: Serious
[2017-05-11 12:49] LABS: % IMMATURE GRANULYOCYTES 0.4 % (0.0-1.1); ABSOLUTE IMMATURE GRANULOCYTES 0.03 10^3/uL (0.00-0.10); ADD DIFF? NO; ADD MORPH? NO; ADD SCAN? NO; ATYPICAL LYMPHOCYTE FLAG 0 (0-99); FRAGMENT RBC FLAG 0 (0-99); HEMATOCRIT 46.7 % (40.0-51.0); HEMOGLOBIN 16.3 g/dL (13.7-17.5); LEFT SHIFT FLG 10 (0-99); LIPEMIA HEMOLYSIS FLAG 90 (0-99); MEAN CELL HEMOGLOBIN 30.6 pg (27.9-34.1); MEAN CELL HEMOGLOBIN CONCENTR. 34.9 g/dL (32.4-36.7); MEAN CELL VOLUME 87.8 fL (81.5-99.8); MEAN PLATELET VOLUME 9.4 fL (8.7-11.7); PLATELET CLUMPS FLAG 0 (0-99); PLATELET COUNT 327 10^3/uL (150-400); RED BLOOD CELL COUNT 5.32 10^6/uL (4.40-6.38); RED CELL DISTRIBUTION WIDTH 15.4 % (11.5-15.2)
[2017-05-11 12:55] LABS: ALANINE AMINOTRANSFERASE 39 IU/L (21-72); ALBUMIN 4.6 g/dL (3.5-5.0); ALKALINE PHOSPHATASE 137 IU/L (38-126); ANION GAP 17 mEq/L (8-16); ASPARTATE AMINOTRANSFERASE 60 IU/L (17-59); BILIRUBIN,TOTAL 1.3 mg/dL (0.1-1.4); BILIRUBIN-CONJUGATED 0.2 mg/dL (0.0-0.5); BILIRUBIN-UNCONJUGATED 1.1 mg/dL (0.0-1.1); CALCIUM 9.8 mg/dL (8.5-10.4); CARBON DIOXIDE 27 mEq/l (22-31); CHLORIDE 92 mEq/L (97-110); GLOMERULAR FILTRATION RATE > 60; GLUCOSE 128 mg/dL (70-100); POTASSIUM 4.1 mEq/L (3.5-5.2); SODIUM 136 mEq/L (134-144); TOTAL PROTEIN 8.3 g/dL (6.3-8.2)
[2017-05-11] MEDS ORDERED: MAG HYDROX/AL HYDROX/SIMETH 30 ML UDCUP PO PRN (14:09)
[2017-05-11] MEDS ORDERED: chlordiazePOXIDE 25 MG CAP PO ONE (14:25)
[2017-05-11] MEDS ORDERED: chlordiazePOXIDE 25 MG CAP PO PRN (14:25)
--- NOTE | 2017-05-11 14:26 | ASMTCMCOM ---
CM Note CM Note Notes: Patient presents to the ER in active alcohol withdrawal accompanied by his daughter. He has strong, admitted history of alcoholism, withdrawal associated seizures and hospital admissions. I have met briefly with patient and his daughter Aniya to offer resource information for detox and rehabilitation. Aniya states that the patient has been to OP rehab but denies known history of IP rehab. Resource and contact information provided for facilities in the [facility] area and encouraged looking into the various options. Patient to be admitted to room 243. CM available for D/C planning and further resources Date Signed: 05/11/2017 02:25 PM Electronically Signed By:Juliann Garcia RN
[2017-05-11] MEDS ORDERED: DEXMEDETOMIDINE HCL 400 MCG in NS 100 ML IV SCH (14:30)
[2017-05-11] MEDS ORDERED: PROMETHAZINE HCL 25 MG/ML INJ IVP PRN (14:37)
[2017-05-11] MEDS ORDERED: ONDANSETRON 4 MG/2 ML VIAL IVP PRN (14:37)
--- NOTE | 2017-05-11 14:53 | GHP ---
[f rep st] HISTORY AND PHYSICAL DATE OF ADMISSION: 05/11/2017 CHIEF COMPLAINT: Vomiting. HISTORY OF PRESENT ILLNESS: This is a 57-year-old male with history of alcohol abuse admitted to [facility] on 01/15/2017 for seizure and alcohol withdrawal, and subsequently requiring IC U stay and Precedex drip. Since discharge from the hospital in December he has continued to drink, but h e tells me that he has cut back. He endorses drinking 4-beers per night, but states that the beers h e drinks are 9% alcohol. When the patient tries to cut back, his withdrawal is often manifested with vomiting. He presented t o the emergency department today with vomiting since . He has been trying an antiemetic at ome that has not been helping. He denies any blood or coffee-grounds emesis. In the emergency department, they were going to send him home. However, he was noted to be delirious noting a bicyclist on the clock and other visual hallucinations. The patient does tell me that he w ould like to quit drinking. PAST MEDICAL HISTORY: 1. Alcohol abuse with a recent hospitalization for withdrawal and withdrawal seizure, see HPI. 2. Intracranial hemorrhage due to alcohol-related fall. 3. Perforated duodenal ulcer. 4. Depression. HOME MEDICATIONS: Reviewed, refer to [facility] for details. ALLERGIES: No known drug allergies. SOCIAL HISTORY: He is and lives with his . During the time of my exam, his daughter was with him. He denies any tobacco use. His last drink was on Saturday. 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 FAMILY HISTORY: Adopted. REVIEW OF SYSTEMS: Comprehensive 10-point Review of Systems was done and is negative, except as ment ioned in HPI and below. ABDOMINAL/GI: Denies hematemesis. No melena, abdominal pain. PHYSICAL EXAM: VITAL SIGNS: Blood pressure 185/106, heart rate 68, respiratory rate 16, O2 saturati on 97% on room air. Temperature afebrile. GENERAL: No acute distress. HEAD: Normocephalic, atrau matic. EYES: PERRLA. Sclerae anicteric. MOUTH: Moist mucous membranes. NECK: Supple. No lymph adenopathy. CARDIOVASCULAR: S1 and S2, tachycardic, no JVD. No lower extremity edema. PULMONARY: Lungs are clear. No wheezes, rales, or rhonchi. ABDOMEN: Soft, nontender, nondistended. No guard ing or rebound tenderness. Normoactive bowel sounds. EXTREMITIES: No clubbing or cyanosis. NEURO: Cranial nerves 2 through 12 grossly intact. There is some nystagmus, otherwise, extraocular muscle s are intact. There is a resting tremor. PSYCHIATRIC: The patient is having some visual hallucinat ions. DIAGNOSTIC STUDIES: WBC 7.9, hemoglobin 16.3, hematocrit 46.7, platelets 327. Sodium 136, potassium 4.1, chloride 92, BUN 12, creatinine 1, glucose 128, AST 60, ALT 39, alkaline phosphatase 137, total protein 8.3. Trace ethyl alcohol. ASSESSMENT AND PLAN: This is a 57-year-old male presenting with: 1. Nausea and vomiting possibly due to alcohol withdrawal versus alcohol related gastritis. Plan: The patient will be started on a PPI and will treat his nausea symptomatically with p.r.n. antiemetic s as well as treatment for his alcohol withdrawal. See below. 2. Acute alcohol withdrawal with signs of delirium, at high risk for delirium tremens. Plan: The p atient will be admitted to the step-down unit since during his last hospitalization he required Prece dex for sedation. Will start scheduled Librium per the CIWA protocol and closely monitor his symptom scoring. 3. Elevated blood pressure. Most likely due to alcohol withdrawal. Plan: Treat withdrawal symptom s and continue to monitor blood pressure and treat with antihypertensives as indicated. 4. The patient will be admitted to the hospital under inpatient status since I suspect he will requi re a prolonged hospital stay due to his withdrawal symptoms. Lovenox will be started for deep venous thrombosis prophylaxis. /[id number]/MODL
[2017-05-11] MEDS: PANTOPRAZOLE SODIUM 40 MG TAB PO SCH (15:10)
[2017-05-11] MEDS: THIAMINE HCL 500 MG in NS 100 ML IV SCH (15:14)
--- NOTE | 2017-05-11 15:14 | PDMN ---
Medical Necessity Medical necessity: C/M review: patient meets INPT crtieria under [facility] M-[id number] Substance related disorders; Acute alcohol withdrawal with signs of delirium tremens, nausea / vomiting, elevated BP - 185/2106, heart rate 132,112 requiring possible IV Precedex infusion if CIWA scote increases, , IV Thiamine daily x 3 doses, ongoing CIWA protocol, acute inpt PT/OT, close monitoring in SDU, comorbid ongoing alcohol abuse with hx 01/15/2017 hospitalization for alcohol withdrawal and withdrawal seizure, intracranial hemorrhage due to an alcohol-related fall, perforated duodenal ulcer, depression. MD anticipates > 2 MN LOS for ongoing med nec for eval and TX of above.
[2017-05-11] MEDS: LORazepam 2 MG/ML INJ IVP PRN (18:58)
[2017-05-11] MEDS: DEXMEDETOMIDINE IN 0.9 % NACL 100 ML IV SCH ×2 (19:27→22:58)
[2017-05-12] MEDS: GABAPENTIN 300 MG CAP PO SCH ×4 (04:58→22:18)
[2017-05-12 05:12] LABS: % IMMATURE GRANULYOCYTES 0.4 % (0.0-1.1); ABSOLUTE IMMATURE GRANULOCYTES 0.02 10^3/uL (0.00-0.10); ADD DIFF? NO; ADD MORPH? NO; ADD SCAN? NO; ATYPICAL LYMPHOCYTE FLAG 0 (0-99); FRAGMENT RBC FLAG 0 (0-99); HEMOGLOBIN 14.1 g/dL (13.7-17.5); LEFT SHIFT FLG 0 (0-99); LIPEMIA HEMOLYSIS FLAG 80 (0-99); MEAN CELL HEMOGLOBIN 29.7 pg (27.9-34.1); MEAN CELL HEMOGLOBIN CONCENTR. 33.6 g/dL (32.4-36.7); MEAN CELL VOLUME 88.4 fL (81.5-99.8); MEAN PLATELET VOLUME 9.6 fL (8.7-11.7); PLATELET CLUMPS FLAG 0 (0-99); PLATELET COUNT 196 10^3/uL (150-400); RED BLOOD CELL COUNT 4.75 10^6/uL (4.40-6.38); RED CELL DISTRIBUTION WIDTH 15.1 % (11.5-15.2)
[2017-05-12] MEDS: DEXMEDETOMIDINE IN 0.9 % NACL 100 ML IV SCH (05:25)
[2017-05-12 05:33] LABS: ANION GAP 13 mEq/L (8-16); CALCIUM 8.8 mg/dL (8.5-10.4); CARBON DIOXIDE 25 mEq/l (22-31); CHLORIDE 105 mEq/L (97-110); CREATININE 0.9 mg/dL (0.7-1.3); GLOMERULAR FILTRATION RATE > 60; GLUCOSE 113 mg/dL (70-100); MAGNESIUM 1.7 mg/dL (1.6-2.3); POTASSIUM 3.8 mEq/L (3.5-5.2); SODIUM 143 mEq/L (134-144)
[2017-05-12] MEDS: THIAMINE HCL 500 MG in NS 100 ML IV SCH (07:13)
[2017-05-12] MEDS: ENOXAPARIN 40 MG/0.4 ML SYR SC SCH (07:13)
[2017-05-12] MEDS: LORazepam 2 MG/ML INJ IVP PRN ×4 (07:13→20:30)
[2017-05-12] MEDS: FOLIC ACID 1 MG TAB PO SCH (07:14)
[2017-05-12] MEDS: CITALOPRAM 20 MG TAB PO SCH (07:14)
[2017-05-12] MEDS: MULTIVITAMINS 1 EACH TAB PO SCH (07:14)
[2017-05-12] MEDS: PANTOPRAZOLE SODIUM 40 MG TAB PO SCH (07:14)
[2017-05-12] MEDS: PROPRANOLOL SR 60 MG CAP PO SCH (07:14)
[2017-05-12] MEDS ORDERED: THIAMINE HCL 500 MG in NS 100 ML IV SCH (09:00)
[2017-05-12] MEDS: FLUTICASONE NASAL 120 SPRAYS/16 GM MDI EACHNARE SCH (09:45)
--- NOTE | 2017-05-12 10:16 | HOSPPROG ---
Hospitalist Progress Note Assessment/Plan: 57 y/o male admitted 05/11 with #nausea and vomiting likely due to below (resolved) #Acute ETOH withdrawal with delirium tremens -patient required Precedex overnight but seems to be improving this morning -will start scheduled Librium 25 mg p.o. three times daily today and continue with p.r.n. Ativan as needed and Precedex for severe agitation # elevated blood pressure likely due to a withdraw (improving) # alcohol abuse -recommend outpatient alcohol cessation treatment Disposition: Patient continues to have hallucinations and will continue care in the step-down unit Subjective: Feeling better today. Improving hallucinations. Feels very shaky and weak. Resolved nausea and vomiting Objective: Vital Signs Temp Pulse Resp BP Pulse Ox 35.8 C L 74 13 140/95 H 100 05/12/17 05:30 05/12/17 09:43 05/12/17 09:43 05/12/17 07:44 05/12/17 09:43 Laboratory Results 05/12/17 04:54 05/12/17 04:54 05/11/17 05/12/17 05/13/17 05:59 05:59 05:59 Intake Total 4275 Output Total 350 Balance 4275 -350 - Physical Exam Constitutional: no apparent distress, appears nourished, not in pain Ears, Nose, Mouth, Throat: moist mucous membranes, hearing normal, ears appear normal, no oral mucosal ulcers Cardiovascular: regular rate and rhythym, no murmur, rub, or gallop Respiratory: no respiratory distress, no rales or rhonchi, clear to auscultation Neurologic: AAOx3, other (Slight tremor), No weakness, No numbness ICD10 Worksheet Patient Problems: Problems Problem Status Onset Perforation of duodenal ulcer Acute Intracranial hemorrhage Acute Alcohol intoxication Acute Alcoholism Acute Alcohol withdrawal Acute Withdrawal seizures Acute Nausea & vomiting Acute
--- NOTE | 2017-05-12 15:07 | GCON ---
[f rep st] CONSULTATION PULMONARY/CRITICAL CARE CONSULTATION. DATE OF CONSULTATION: 05/12/2017 REFERRING PHYSICIAN: Bradley Shah DO REASON FOR REFERRAL: Evaluation and management of alcohol withdrawal and hallucinations. HISTORY: The patient is a 57-year-old male with a history of alcohol abuse, who was admitted to [facility] in December for seizure and alcohol withdrawal. He was placed on a Precedex drip at that time. He was d ischarged from the hospital with the intent to stop drinking, but he continued to drink, albeit at a reduced volume per the patient. He states that he drinks about 4 high-alcohol beers nightly. He had tried to cut back drinking a few days ago, but had the onset of vomiting, which is his typical sympt om. He tried an antiemetic at home, which had not helped. In the emergency department, he was asses sed and was going to go home, but then started having hallucinations, as well as hypertension and rosaline e agitation and tremors, so he was admitted to the ICU. He was placed on Librium and a Precedex drip . The Precedex drip was weaned off this morning, and his Librium dose has been reduced to a smaller scheduled dose. He states that he has been doing quite well today, and denies any nausea/vomiting. He has walked around the unit several times with no assistance. He reports minimal tremor, stating t hat he is able to lemon picker objects without any difficulty. He denies any hallucinations. PAST MEDICAL HISTORY: 1. Alcohol abuse with a history of withdrawal seizures. 2. Intracranial hemorrhage due to alcohol-related fall. 3. History of perforated duodenal ulcer. 4. History of depression. MEDICATIONS: At the time of admission, include Neurontin, Wellbutrin, Celexa, Flonase, Zyrtec, propr anolol, Proventil, and Zosyn. ALLERGIES: None. 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 He denies any tobacco u se. His last drink was Saturday, 5 days ago. FAMILY HISTORY: He was adopted. REVIEW OF SYSTEMS: A 10-point Review of Systems adds nothing to the History of Present Illness. PHYSICAL EXAMINATION: GENERAL: The patient is awake, alert, and in no acute distress. VITAL SIGNS: His blood pressure is 98/69, with a heart rate of 69. He is afebrile. Oxygen saturati ons are 99% on room air. His CIWA score is 5. HEENT: Normocephalic and atraumatic. No icterus. N CINDA: No adenopathy. Trachea is midline. CHEST: Clear to auscultation. CARDIAC: Regular rate and rhythm without murmur. ABDOMEN: Soft, nontender. Bowel sounds are present. EXTREMITIES: No club ubaldo, cyanosis, or edema. NEURO: The patient is awake and alert. He is oriented x3. He has a very minimal intention tremor. He has no gross motor or sensory weakness. LABORATORY: Chemistry group and CBC are normal. ASSESSMENT: 1. Alcohol withdrawal. This was manifested as hypertension, agitation, vomiting, and hallucinations as a last night, but these have all resolved after today, and the patient has a low [facility] Withdrawal Assessment score on Librium alone. 2. Vomiting. This is resolved and the patient has no significant metabolic abnormalities. He had a mildly elevated anion gap at admission, but this has closed. 3. Hypertension. This also has resolved, and was likely due to the patient's alcohol withdrawal. RECOMMENDATIONS: Continue PCU monitoring on low-dose scheduled Librium. If the patient has an incre ase in his symptoms, he will be given Ativan or a Precedex drip. If he does well, he could potential ly be discharged to an outpatient alcohol rehabilitation center as soon as tomorrow. /[id number]/MODL
[2017-05-12] MEDS: chlordiazePOXIDE 25 MG CAP PO SCH ×2 (15:27→22:19)
[2017-05-12] MEDS: COLCHICINE 0.6 MG CAP/TAB PO SCH (16:43)
[2017-05-13 05:38] LABS: % IMMATURE GRANULYOCYTES 0.4 % (0.0-1.1); ABSOLUTE IMMATURE GRANULOCYTES 0.04 10^3/uL (0.00-0.10); ADD DIFF? NO; ADD MORPH? NO; ADD SCAN? NO; ATYPICAL LYMPHOCYTE FLAG 0 (0-99); FRAGMENT RBC FLAG 0 (0-99); HEMATOCRIT 37.9 % (40.0-51.0); HEMOGLOBIN 13.4 g/dL (13.7-17.5); LEFT SHIFT FLG 20 (0-99); LIPEMIA HEMOLYSIS FLAG 90 (0-99); MEAN CELL HEMOGLOBIN 30.7 pg (27.9-34.1); MEAN CELL HEMOGLOBIN CONCENTR. 35.4 g/dL (32.4-36.7); MEAN CELL VOLUME 86.7 fL (81.5-99.8); MEAN PLATELET VOLUME 9.4 fL (8.7-11.7); PLATELET CLUMPS FLAG 0 (0-99); PLATELET COUNT 206 10^3/uL (150-400); RED BLOOD CELL COUNT 4.37 10^6/uL (4.40-6.38)
[2017-05-13 05:56] LABS: CALCIUM 8.4 mg/dL (8.5-10.4); CARBON DIOXIDE 26 mEq/l (22-31); CHLORIDE 102 mEq/L (97-110); CREATININE 0.9 mg/dL (0.7-1.3); GLOMERULAR FILTRATION RATE > 60; GLUCOSE 96 mg/dL (70-100); MAGNESIUM 1.5 mg/dL (1.6-2.3); SODIUM 138 mEq/L (134-144)
[2017-05-13 06:05] LABS: ANION GAP 10 mEq/L (8-16)
[2017-05-13] MEDS: CITALOPRAM 20 MG TAB PO SCH (08:11)
[2017-05-13] MEDS: MULTIVITAMINS 1 EACH TAB PO SCH (08:11)
[2017-05-13] MEDS: PANTOPRAZOLE SODIUM 40 MG TAB PO SCH (08:11)
[2017-05-13] MEDS: GABAPENTIN 300 MG CAP PO SCH ×3 (08:11→21:23)
[2017-05-13] MEDS: PROPRANOLOL SR 60 MG CAP PO SCH (08:11)
[2017-05-13] MEDS: COLCHICINE 0.6 MG CAP/TAB PO SCH (08:11)
[2017-05-13] MEDS: FOLIC ACID 1 MG TAB PO SCH (08:11)
[2017-05-13] MEDS: chlordiazePOXIDE 25 MG CAP PO SCH ×3 (08:11→21:23)
[2017-05-13] MEDS: FLUTICASONE NASAL 120 SPRAYS/16 GM MDI EACHNARE SCH (08:12)
[2017-05-13] MEDS: ENOXAPARIN 40 MG/0.4 ML SYR SC SCH (08:12)
[2017-05-13] MEDS: THIAMINE HCL 500 MG in NS 100 ML IV SCH (09:07)
[2017-05-13] MEDS ORDERED: PROTOCOL POTASSIUM 1 DOSE MISC PRN (11:06)
[2017-05-13] MEDS ORDERED: PROTOCOL MAGNESIUM 1 DOSE IV PRN (11:06)
[2017-05-13] MEDS ORDERED: MAGNESIUM SULF 2 GM/WATER 50 ML IV ONE (11:06)
[2017-05-13] MEDS ORDERED: POTASSIUM CL 20 MEQ TAB PO ONE (11:07)
--- NOTE | 2017-05-13 11:11 | HOSPPROG ---
Hospitalist Progress Note Assessment/Plan: #Acute alcohol withdrawal: off precedex. Cont scheduled Librium #Hypokalemia/hypomagnesium: on electrolyte protocol #Alcohol abuse: wants to quit. Been in rehab 2x, goes to AA meetings #Fall risk: impulsive, PT/OT here and outpatient #Diet: regular #DVT ppx: SCDs #Disp: cont inpt admission, still requiring BZs for w/d, PT Subjective: feels anxious this morning. Stopped drinking 3 weeks ago Objective: Vital Signs Temp Pulse Resp BP Pulse Ox 36.9 C 75 20 97/69 L 98 05/13/17 08:00 05/13/17 08:00 05/13/17 08:00 05/13/17 08:00 05/13/17 03:56 Laboratory Results 05/13/17 05:25 05/13/17 05:25 05/12/17 05/13/17 05/14/17 05:59 05:59 05:59 Intake Total 4275 1300 Output Total 600 Balance 4275 700 - Physical Exam Constitutional: no apparent distress Eyes: PERRL Ears, Nose, Mouth, Throat: moist mucous membranes, hearing normal Cardiovascular: regular rate and rhythym, no murmur, rub, or gallop Respiratory: no respiratory distress, no rales or rhonchi Gastrointestinal: normoactive bowel sounds, soft, non-tender abdomen Genitourinary: no bladder fullness Skin: warm Musculoskeletal: full muscle strength Neurologic: AAOx3, CN II-XII Intact, other (mild hand tremor and tongue fasiculations.) Psychiatric: anxious ICD10 Worksheet Patient Problems: Problems Problem Status Onset Alcohol withdrawal Acute Nausea & vomiting Acute Alcohol intoxication Acute Alcoholism Acute Intracranial hemorrhage Acute Perforation of duodenal ulcer Acute Withdrawal seizures Acute
--- NOTE | 2017-05-13 11:36 | ASMTCMCOM ---
CM Note CM Note Notes: Spoke with patient and . Patient wondered about ETOH tx options. This CM recommended that he contact his ins and find out what they would pay for and who they contract with for ETOH services. Patient reported that he has been in 3 in-pt programs and 1 intensive out-pt program. Asked if he had a [facility] Mt[facility] list which he does. We talked about filling his time with supportive activities: a therapist, a tx program, AA Mtgs, Sponsors, physical activities, etc. He may have to choose different friends. Supprtive and 2 daughters. Date Signed: 05/13/2017 11:36 AM Electronically Signed By:Yaquelin Salazar LCSW
[2017-05-13] MEDS ORDERED: COLCHICINE 0.6 MG CAP/TAB PO ONE (17:30)
[2017-05-13 18:08] LABS: POTASSIUM 3.5 mEq/L (3.5-5.2)
[2017-05-13] MEDS ORDERED: POTASSIUM CL 10 MEQ TAB PO ONE (19:31)
[2017-05-14 05:02] LABS: % IMMATURE GRANULYOCYTES 0.8 % (0.0-1.1); ABSOLUTE IMMATURE GRANULOCYTES 0.06 10^3/uL (0.00-0.10); ADD DIFF? NO; ADD MORPH? NO; ADD SCAN? NO; ATYPICAL LYMPHOCYTE FLAG 0 (0-99); FRAGMENT RBC FLAG 0 (0-99); HEMATOCRIT 36.1 % (40.0-51.0); HEMOGLOBIN 12.4 g/dL (13.7-17.5); LEFT SHIFT FLG 10 (0-99); LIPEMIA HEMOLYSIS FLAG 90 (0-99); MEAN CELL HEMOGLOBIN CONCENTR. 34.3 g/dL (32.4-36.7); MEAN CELL VOLUME 87.2 fL (81.5-99.8); MEAN PLATELET VOLUME 10.2 fL (8.7-11.7); PLATELET CLUMPS FLAG 0 (0-99); PLATELET COUNT 170 10^3/uL (150-400); RED BLOOD CELL COUNT 4.14 10^6/uL (4.40-6.38); RED CELL DISTRIBUTION WIDTH 15.1 % (11.5-15.2)
[2017-05-14 05:29] LABS: BILIRUBIN,TOTAL 0.5 mg/dL (0.1-1.4); BILIRUBIN-CONJUGATED 0.2 mg/dL (0.0-0.5); BILIRUBIN-UNCONJUGATED 0.3 mg/dL (0.0-1.1); TOTAL PROTEIN 6.1 g/dL (6.3-8.2)
[2017-05-14 05:30] LABS: ANION GAP 12 mEq/L (8-16); CALCIUM 8.3 mg/dL (8.5-10.4); CARBON DIOXIDE 25 mEq/l (22-31); CHLORIDE 103 mEq/L (97-110); CREATININE 1.3 mg/dL (0.7-1.3); GLOMERULAR FILTRATION RATE 57; GLUCOSE 102 mg/dL (70-100); MAGNESIUM 2.1 mg/dL (1.6-2.3); POTASSIUM 3.5 mEq/L (3.5-5.2); SODIUM 140 mEq/L (134-144)
[2017-05-14] MEDS ORDERED: POTASSIUM CL 10 MEQ TAB PO ONE (06:16)
[2017-05-14] MEDS: GABAPENTIN 300 MG CAP PO SCH ×2 (07:02→15:12)
[2017-05-14 08:42] VITALS: BP 129/84; PULSE 73; RESP 18; TEMP 98.3; O2SAT 94
[2017-05-14] MEDS: FOLIC ACID 1 MG TAB PO SCH (09:15)
[2017-05-14] MEDS: MULTIVITAMINS 1 EACH TAB PO SCH (09:15)
[2017-05-14] MEDS: ENOXAPARIN 40 MG/0.4 ML SYR SC SCH (09:15)
[2017-05-14] MEDS: chlordiazePOXIDE 25 MG CAP PO SCH ×2 (09:16→15:33)
[2017-05-14] MEDS: CITALOPRAM 20 MG TAB PO SCH (09:16)
[2017-05-14] MEDS: PANTOPRAZOLE SODIUM 40 MG TAB PO SCH (09:16)
[2017-05-14] MEDS: PROPRANOLOL SR 60 MG CAP PO SCH (09:41)
[2017-05-14] MEDS: FLUTICASONE NASAL 120 SPRAYS/16 GM MDI EACHNARE SCH (09:42)
[2017-05-14] MEDS ORDERED: INDOMETHACIN 25 MG CAP PO PRN (09:53)
--- NOTE | 2017-05-14 10:40 | ASMTCMCOM ---
CM Note CM Note Notes: Met with patient re: alcohol and drug rehab resources. Patient was given an extensive listing of resources he can review and choose from. Patient tells me there is a family meeting planned for this evening to discuss "next steps" for him. His and one of his daughters are planning it. Patient will most likely d/c today. He has been in 3 inpatient programs, AA meetings, and 1 outpatient program, historically. Discussed individual therapist as it appears he needs this level of support in addition to any group work or program work he is doing. CM available if any further needs identified. Date Signed: 05/14/2017 10:39 AM Electronically Signed By:Tabitha Fernandes LCSW
--- NOTE | 2017-05-14 14:55 | HOSPPROG ---
Hospitalist Progress Note Assessment/Plan: #Acute alcohol withdrawal: off precedex. Cont scheduled Librium #Hypokalemia/hypomagnesium: on electrolyte protocol #Alcohol abuse: wants to quit. Been in rehab 2x, goes to AA meetings #Fall risk: impulsive, PT/OT here and outpatient #Diet: regular #h/o duodenal ulcer: PPI #h/o gout: advised him to use Indomethacin cautiously with h/o ulcer. FU with Rheum #Disp: DC today Time spent on DC 45 min counseling on meds, FU and alcohol cessation Subjective: not anxious Objective: Vital Signs Temp Pulse Resp BP Pulse Ox 36.8 C 73 18 129/84 H 94 05/14/17 08:00 05/14/17 08:00 05/14/17 08:00 05/14/17 08:00 05/14/17 08:00 Laboratory Results 05/14/17 04:29 05/14/17 04:29 05/13/17 05/14/17 05/15/17 05:59 05:59 05:59 Intake Total 1300 1180 Output Total 600 Balance 700 1180 - Time Spent With Patient Time Spent with Patient: greater than 35 minutes Time Spent with Patient: Greater than 35 minutes spent on this patients care, greater than 50% of time spent counseling, educating, and coordinating care regarding the above mentioned plan. - Physical Exam Constitutional: no apparent distress, other (appears brighter) Eyes: PERRL Ears, Nose, Mouth, Throat: moist mucous membranes Cardiovascular: regular rate and rhythym Respiratory: no respiratory distress Gastrointestinal: normoactive bowel sounds Genitourinary: no bladder fullness Skin: warm Musculoskeletal: full muscle strength Neurologic: AAOx3, CN II-XII Intact Psychiatric: interacting appropriately ICD10 Worksheet Patient Problems: Problems Problem Status Onset Perforation of duodenal ulcer Acute Intracranial hemorrhage Acute Alcohol intoxication Acute Alcoholism Acute Alcohol withdrawal Acute Withdrawal seizures Acute Nausea & vomiting Acute
--- NOTE | 2017-05-14 16:01 | ASDISCHSUM ---
Discharge Information Plan Status:Home with No Needs Medically Cleared to Leave:05/13/2017 Discharge Date:05/14/2017 03:56 PM CM D/C Disposition:Home, Routine, Self-Care ADT D/C Disposition:Home, Routine, Self-Care Projected Discharge Date:05/14/2017 12:00 AM Transportation at D/C:Family Discharge Delay Reason: Follow-Up Date:05/14/2017 12:00 AM Discharge Slot: Final Diagnosis:ETOH W/D Placement Information Patient Contact Information Contact Name:BUFFY Relationship: Address:[address] Home Phone: City:[place] Alternate Phone: [facility]/Zip Code:[place] [address] Email: Financial Information Financial Class:HMO and PPO Plans Primary Plan Desc:[employer] PPO POS HMO Primary Plan Number:[id number] Secondary Plan Desc: Secondary Plan Number: Assessment Information LACE LACE Acuity / Level of Care Answers: Was the patient admitted to hospital via the emergency department? Yes: Comorbidities - select Answers: Mild liver or renal all that apply disease Emergency dept visits in Answers: 2 last 6 months Score: 7 Date Signed: 05/11/2017 01:43 PM Electronically Signed By:Juliann Garcia RN [facility] Progress Note CM Note CM Note Notes: Patient presents to the ER in active alcohol withdrawal accompanied by his daughter. He has strong, admitted history of alcoholism, withdrawal associated seizures and hospital admissions. I have met briefly with patient and his daughter Aniya to offer resource information for detox and rehabilitation. Aniya states that the patient has been to OP rehab but denies known history of IP rehab. Resource and contact information provided for facilities in the [facility] and encouraged looking into the various options. Patient to be admitted to room 243. CM available for D/C planning and further resources Date Signed: 05/11/2017 02:25 PM Electronically Signed By:Juliann Garcia RN [facility] CM Progress Note CM Note CM Note Notes: Spoke with patient and . Patient wondered about ETOH tx options. This CM recommended that he contact his ins and find out what they would pay for and who they contract with for ETOH services. Patient reported that he has been in 3 in-pt programs and 1 intensive out-pt program. Asked if he had a [facility] AA Mtg list which he does. We talked about filling his time with supportive activities: a therapist, a tx program, AA Mtgs, Sponsors, physical activities, etc. He may have to choose different friends. Supprtive and 2 daughters. Date Signed: 05/13/2017 11:36 AM Electronically Signed By:Yaquelin Salazar LCSW [facility] JERRY Progress Note CM Note CM Note Notes: Met with patient re: alcohol and drug rehab resources. Patient was given an extensive listing of resources he can review and choose from. Patient tells me there is a family meeting planned for this evening to discuss "next steps" for him. His and one of his daughters are planning it. Patient will most likely d/c today. He has been in 3 inpatient programs, AA meetings, and 1 outpatient program, historically. Discussed individual therapist as it appears he needs this level of support in addition to any group work or program work he is doing. CM available if any further needs identified. Date Signed: 05/14/2017 10:39 AM Electronically Signed By:Tabitha Fernandes LCSW Intervention Information
--- NOTE | 2017-05-14 16:02 | GDS ---
[f rep st] DISCHARGE SUMMARY DISCHARGE DIAGNOSES: 1. Alcohol withdrawal. 2. History of withdrawal seizure. 3. History of intracranial hemorrhage secondary to alcohol-related fall. 4. Perforated duodenal ulcer. 5. Depression. 6. History of gout. 7. Polyneuropathy. HISTORY OF PRESENT ILLNESS: A 57-year-old male with history of alcohol abuse, who was admitted to [facility] December 2016 for seizure and alcohol withdrawal with subsequent ICU stay with Precedex drip. Since discharge, he has continued to drink, but he has cut back, stating he drinks 4 beers a night, but the beers are 9% alcohol. When he tried to cut back, his withdrawals often manifested by vomiting, with which he presented here today. Denies any hematochezia, melena, or coffee-ground emesis. In the ER, he was going to be sent home, but they noticed he was delirious and having hallucinations. HOSPITAL COURSE BY PROBLEM: 1. Alcohol withdrawal: required ICU and Precedex. He was placed on a Librium taper with minimal CIWA score today. He was advised to not drink on this medication. He was provided resources by case management and plans to do a residential rehab program because he has failed 2 inpatient programs in the past. 2. Polyneuropathy: Continued neuropathy. 3. Depression. Wellbutrin. 4. History of gout: Has seen Rheumatology in the past, and he was told no treatment needed. He is currently on indomethacin, but I advised him to use this minimally given his history of duodenal ulcer. Started a PPI. 5. Deconditioning: Was evaluated by PT/OT. Recommended outpatient physical therapy as occupational therapy to evaluate for driving clearance. 6. History of compression fracture at T12. Follow up vitamin D as an outpatient. DISPOSITION: Patient is stable for discharge home with family, with outpatient PT/OT. MEDICATIONS: See medication reconciliation. New medications: Librium taper. FOLLOWUP: 1. Primary care physician to discuss home medications. 2. Rheumatology to determine if would benefit from a maintenance drug like allopurinol for polyarthralgia. 3. Enroll in alcohol cessation program. TIME SPENT ON DISCHARGE: 40 minutes counseling patient on medications, alcohol cessation, and followup plan with his PCP and base filler. /[id number]/MODL MTDD
== END 2017-05-14 15:56 | disposition home or self-care (01) | DRG 897 ==
LOC: F2N 14:23 → F3E 05-13 18:15
PROVIDERS: ADMIT Family Medicine; ATTEND Family Medicine
DX: F10.232 Alcohol dependence with withdrawal with perceptual disturbance (principal); G62.9 Polyneuropathy, unspecified; F32.9 Major depressive disorder, single episode, unspecified; M10.9 Gout, unspecified
CPT/HCPCS: 96374; 97112-GP; 97116-GP; 97161-GP; 97165-GO; 97535-GO; J1650; J2060; J2550; J3411

== ENCOUNTER 2017-05-18 12:53 | Observation (INO) | payer OTHER ==
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
[2017-05-18] MEDS ORDERED: IOPAMIDOL (ISOVUE-300) 100 ML BTL ONE (14:04)
[2017-05-18 15:21] LABS: % IMMATURE GRANULYOCYTES 1.8 % (0.0-1.1); ABSOLUTE IMMATURE GRANULOCYTES 0.15 10^3/uL (0.00-0.10); ADD DIFF? NO; ADD MORPH? NO; ADD SCAN? NO; ATYPICAL LYMPHOCYTE FLAG 0 (0-99); FRAGMENT RBC FLAG 0 (0-99); HEMOGLOBIN 13.8 g/dL (13.7-17.5); LEFT SHIFT FLG 10 (0-99); LIPEMIA HEMOLYSIS FLAG 90 (0-99); MEAN CELL HEMOGLOBIN 30.3 pg (27.9-34.1); MEAN CELL HEMOGLOBIN CONCENTR. 34.5 g/dL (32.4-36.7); MEAN CELL VOLUME 87.7 fL (81.5-99.8); MEAN PLATELET VOLUME 9.3 fL (8.7-11.7); PLATELET CLUMPS FLAG 10 (0-99); PLATELET COUNT 299 10^3/uL (150-400); RED BLOOD CELL COUNT 4.56 10^6/uL (4.40-6.38); RED CELL DISTRIBUTION WIDTH 15.2 % (11.5-15.2)
[2017-05-18 15:28] LABS: ANION GAP 13 mEq/L (8-16); CALCIUM 8.8 mg/dL (8.5-10.4); CARBON DIOXIDE 24 mEq/l (22-31); CHLORIDE 102 mEq/L (97-110); CREATININE 0.9 mg/dL (0.7-1.3); ETHANOL SERUM 203 mg/dL (0-10); GLOMERULAR FILTRATION RATE > 60; GLUCOSE 103 mg/dL (70-100); SODIUM 139 mEq/L (134-144)
[2017-05-18] MEDS ORDERED: fentaNYL 100 MCG/2 ML INJ IVP ONE (15:31)
[2017-05-18] MEDS ORDERED: ALBUTEROL 60 PUFFS/8 GM MDI IH PRN (17:20)
[2017-05-18] MEDS ORDERED: INDOMETHACIN 25 MG CAP PO PRN (17:20)
[2017-05-18] MEDS ORDERED: ALBUTEROL 200 PUFFS/18 GM MDI IH PRN (17:24)
[2017-05-18] MEDS ORDERED: ONDANSETRON DISINTEGRATING 4 MG TAB PO PRN (17:26)
[2017-05-18] MEDS: oxyCODONE IR 15 MG TAB PO PRN ×2 (17:42→21:13)
[2017-05-18] MEDS: KETOROLAC 15 MG/1 ML SDV IVP SCH (17:43)
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
[2017-05-18] MEDS: PROPRANOLOL SR 60 MG CAP PO SCH (18:38)
[2017-05-18] MEDS ORDERED: GABAPENTIN 300 MG CAP PO SCH (21:00)
[2017-05-18] MEDS ORDERED: NON-FORMULARY NEW DRUG (Gabapentin [Neurontin] 600 MG) PO SCH (21:00)
[2017-05-18] MEDS: BEER 1 EACH EA PO SCH (21:25)
[2017-05-19] MEDS: oxyCODONE IR 15 MG TAB PO PRN ×4 (00:08→10:04)
[2017-05-19] MEDS: KETOROLAC 15 MG/1 ML SDV IVP SCH ×2 (00:10→06:09)
[2017-05-19] MEDS: PROPRANOLOL SR 60 MG CAP PO SCH (07:59)
[2017-05-19] MEDS ORDERED: GABAPENTIN 300 MG CAP PO SCH (08:00)
[2017-05-19 08:03] VITALS: BP 144/90; PULSE 63
[2017-05-19 08:04] VITALS: RESP 18; TEMP 98.2; O2SAT 91
[2017-05-19] MEDS: BEER 1 EACH EA PO SCH (08:20)
[2017-05-19] MEDS ORDERED: CITALOPRAM 20 MG TAB PO SCH (09:00)
[2017-05-19] MEDS ORDERED: MULTIVITAMINS 1 EACH TAB PO SCH (09:00)
[2017-05-19] MEDS ORDERED: PROPRANOLOL SR 60 MG CAP PO SCH ×2 (09:00)
[2017-05-19] MEDS ORDERED: CETIRIZINE 10 MG TAB PO SCH (09:00)
[2017-05-19] MEDS ORDERED: PANTOPRAZOLE SODIUM 40 MG TAB PO SCH (09:00)
[2017-05-19] MEDS ORDERED: buPROPion SR 150 MG TAB PO SCH (09:00)
[2017-05-19] MEDS ORDERED: chlordiazePOXIDE 25 MG CAP PO SCH (09:45)
--- NOTE | 2017-05-19 09:52 | PDIAF ---
- Diagnosis Diagnosis: multiple left rib fractures Code Status: Full Code - Medication Management Discharge Medications: Medications to Continue on Transfer Gabapentin [Neurontin 300 MG (*)] 300 mg PO #60 cap 01/29/17 [Last Taken 05/08/17] Gabapentin [Neurontin] 600 mg PO HS #30 tablet 01/29/17 [Last Taken 05/08/17] Albuterol [Proventil Inhaler HFA (*)] 2 puffs IH Q4 PRN 05/11/17 [Last Taken Unknown] Cetirizine [ZyrTEC 10 mg (*)] 10 mg PO DAILY 05/11/17 [Last Taken 05/08/17] Propranolol HCl [Propranolol HCl ER] 120 mg PO DAILY 05/11/17 [Last Taken ] Citalopram [CeleXA 20 MG] 20 mg PO DAILY #30 tab 05/14/17 [Last Taken Unknown] Indomethacin [Indocin 25 mg (*)] 25 mg PO TID PRN #30 cap 05/14/17 [Last Taken Unknown] Multivitamins [Multivitamin (*)] 1 each PO DAILY #30 tab 05/14/17 [Last Taken Unknown] Pantoprazole Sodium [Protonix 40mg (*)] 40 mg PO DAILY #30 tab 05/14/17 [Last Taken Unknown] buPROPion SR [Wellbutrin 150mg SR (*)] 150 mg PO DAILY #30 tab 05/14/17 [Last Taken 05/17/17] chlordiazePOXIDE [Librium 25 mg (*)] 25 mg PO DAILY 05/18/17 [Last Taken Unknown ] Ondansetron Odt [Zofran Odt 4 mg (*)] 4 mg PO Q4HRS PRN tab 05/19/17 [Last Taken Unknown] Propranolol Sr [Inderal LA 60mg (*)] 120 mg PO DAILY cap 05/19/17 [Last Taken Unknown] oxyCODONE IR [Oxycodone Ir (*)] 5 - 15 mg PO Q3 PRN #30 tab 05/19/17 [Last Taken Unknown] Discharge Medications: Refer to the Discharge Home Medication list for PRN reason. 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
--- NOTE | 2017-05-19 09:59 | PDDCSUM ---
Discharge Summary Discharge Summary: #[id number] RIVKA David MD, FACS
--- NOTE | 2017-05-19 10:13 | SOAPPROG ---
Downtime Inpatient MD Late Entry SOAP Note: repeat CXR shows bibasilar atelectasis/no pneumo or hemothorax O2 sats remain in the low 90's on RA stable for discharge FU PCP, outpatient OT/PT
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
--- NOTE | 2017-05-19 12:58 | ASDISCHSUM ---
Discharge Information Plan Status:Home with No Needs Medically Cleared to Leave: Discharge Date:05/19/2017 10:52 AM CM D/C Disposition:Home, Routine, Self-Care ADT D/C Disposition:Home, Routine, Self-Care Projected Discharge Date:05/19/2017 10:52 AM Transportation at D/C:Friend Discharge Delay Reason: Follow-Up Date:05/19/2017 10:52 AM Discharge Slot: Final Diagnosis: Placement Information Patient Contact Information Contact Name:BUFFY Relationship: Address:[address] Home Phone: City:[place] Alternate Phone: [facility]/Zip Code:[place] [address] Email: Financial Information Financial Class:HMO and PPO Plans Primary Plan Desc:[employer] PPO POS HMO Primary Plan Number:[id number] Secondary Plan Desc: Secondary Plan Number: Assessment Information Intervention Information
== END 2017-05-19 10:52 | disposition home or self-care (01) ==
LOC: F3N 16:36
PROVIDERS: ADMIT Surgery; ATTEND Surgery
DX: S22.42XA Multiple fractures of ribs, left side, initial encounter for closed fracture (principal); S27.321A Contusion of lung, unilateral, initial encounter; V10.4XXA Pedal cycle driver injured in collision with pedestrian or animal in traffic accident, initial encounter; Y93.55 Activity, bike riding; Y92.414 Local residential or business street as the place of occurrence of the external cause; Y99.8 Other external cause status; F10.220 Alcohol dependence with intoxication, uncomplicated; Y90.7 Blood alcohol level of 200-239 mg/100 ml; Z87.820 Personal history of traumatic brain injury; I10 Essential (primary) hypertension; M10.9 Gout, unspecified
CPT/HCPCS: 71010; 71260; 72129; 72132; 72146; 74177; 97161; 97165; 99285; G0378; G0480; J1885; J3010; Q9967

== ENCOUNTER 2017-07-04 17:11 | Emergency (ER) | payer OTHER ==
[2017-07-04 17:17] VITALS: RESP 18
--- NOTE | 2017-07-04 17:45 | EDPHY ---
H & P Stated Complaint: ETOH/ALCOHOLIC WITH N/V WITHDRAWAL Source: Patient, Family (), Old records Exam Limitations: No limitations - Personal History Current Tetanus/Diphtheria Vaccine: Yes Tetanus Vaccine Date: unknown - Medical/Surgical History Hx Asthma: No Hx Chronic Respiratory Disease: No Hx Diabetes: No Hx Cardiac Disease: No Hx Renal Disease: No Hx Cirrhosis: No Hx Alcoholism: Yes Hx HIV/AIDS: No Hx Splenectomy or Spleen Trauma: No Other PMH: ETOH withdrawl seizure 12/2016, alcoholism, intracranial hemorrhage, Depression,HTN, 2 CUNCUSSIONS. Perforated intestinal ulcer, gout, IVELISSE with CPAP - Social History Smoking Status: Never smoked Time Seen by Provider: 07/04/17 17:44 HPI/ROS: HPI: This is a 57-year-old male presents with Chief Complaint: Nausea and vomiting Location: GI Quality: Nausea vomiting Duration: 1 day Signs and Symptoms: no fever,+ nausea, + vomiting, no hematemesis, no blood in stool, no abdominal bloating, no diarrhea, no back pain, no urinary symptoms, no testicular/groin pain, no indigestion, no chest pain, no shortness of breath , + chills Timing: Sudden, intermittent episodes Severity: Moderate Context: Patient has a history of alcoholism presents with sudden onset of nausea vomiting of greater than 10 times starting last night. Denies fever/ abdominal pain/diarrhea/chest pain/shortness of breath. No family members are sick. Patient was in alcohol rear have at [facility] from 06/10/2017-2016. He started drinking again on 06/25/2017. He drinks an average of 6 large size beers of high alcohol content daily. Last drink was yesterday sometime. Patient reports that he has feels slightly anxious, mild headache, denies auditory/visual/tactile disturbances, mild tremors, moderate nausea and vomit. Patient has been to several alcohol detox and rehab facilities in the past. He has been 1 year and his does not feel safe taking him home with her. He denies suicidal ideation/homicidal ideation/hallucinations. Modifying Factors: Comment: ROS: see HPI Constitutional: No fever, no chills, no weight loss Eyes: No blurred vision Respiratory: No shortness of breath, no cough Cardiovascular: No chest pain, no palpitations Gastrointestinal: + nausea, + vomiting, no diarrhea, no hematemesis, no blood in stool Genitourinary: No dysuria, no blood in urine Extremities: No myalgias, no edema Neurologic: No weakness, no numbness Skin: No rashes, no petechiae Hematologic: No bruising, no bleeding MEDICAL/SURGICAL/SOCIAL HISTORY: Medical history: ETOH withdrawal seizure 12/2016, alcoholism, intracranial hemorrhage, Depression, HTN, 2 CONCUSSIONS Perforated intestinal ulcer, gout, IVELISSE with CPAP Surgical history: Exploratory laparotomy Social history: . CONSTITUTIONAL: awake and alert, no obvious distress HEENT: Atraumatic and normocephalic, PERRL, EOMI. Tympanic membranes clear. Oropharynx clear, no exudate and moist pink mucosa. Airway patent. No lymphadenopathy. No meningismus. Cardiovascular: Normal S1/S2, tachycardia, regular rhythm, without murmur rub or gallop. PULMONARY/CHEST: Symmetrical and nontender. Clear to auscultation bilaterally. Good air movement. No accessory muscle usage. ABDOMEN: Soft, nondistended, nontender, no rebound, no guarding, no peritoneal signs, no masses or organomegaly. No CVAT. EXTREMITIES: 2/2 pulses, strength 5/5, no deformities, no clubbing, no cyanosis or edema. NEUROLOGICAL: no focal neuro deficits. GCS 15. SKIN: Warm and dry, no erythema. no rash. Good capillary refill. (Ruth Smith) Constitutional: Initial Vital Signs Temperature (C) 36.8 C 07/04/17 17:15 Heart Rate 138 H 07/04/17 17:15 Respiratory Rate 18 07/04/17 17:15 Blood Pressure 177/117 H 07/04/17 17:15 O2 Sat (%) 98 07/04/17 17:15 O2 Delivery Mode Room Air Allergies/Adverse Reactions: No Known Allergies Allergy (Verified 07/04/17 17:14) Home Medications: Medication Instructions Recorded Gabapentin [Neurontin 300 MG (*)] 300 mg PO #60 cap 01/29/17 Gabapentin [Neurontin] 600 mg PO HS #30 tablet 01/29/17 Albuterol [Proventil Inhaler HFA 2 puffs IH Q4 PRN 05/11/17 (*)] Cetirizine [ZyrTEC 10 mg (*)] 10 mg PO DAILY 05/11/17 Propranolol HCl [Propranolol HCl 120 mg PO DAILY 05/11/17 ER] Citalopram [CeleXA 20 MG] 20 mg PO DAILY #30 tab 05/14/17 Indomethacin [Indocin 25 mg (*)] 25 mg PO TID PRN #30 cap 05/14/17 Multivitamins [Multivitamin (*)] 1 each PO DAILY #30 tab 05/14/17 Pantoprazole Sodium [Protonix 40mg 40 mg PO DAILY #30 tab 05/14/17 (*)] buPROPion SR [Wellbutrin 150mg SR 150 mg PO DAILY #30 tab 05/14/17 (*)] Propranolol Sr [Inderal LA 60mg 120 mg PO DAILY cap 05/19/17 (*)] Medical Decision Making ED Course/Re-evaluation: Labs, IV fluids, IV medications ordered CIWA=8 upon arrival Patient given 2 L normal saline, IV promethazine, and p.o. Librium Patient does not meet M1 hold or detainer at this time. No signs of delirium/psychosis/withdrawal seizures/HI/SI. Case management consult; Margarita discussed multiple alcohol rehab centers in the area and information as well as phone numbers provided to both the patient and the . Patient has been in multiple local facilities including the [facility]. Patient is agreeable to go to the [facility] but the is requesting a more long- term treatment plan. Vital signs improved at discharge. Passed p.o. trial. CIWA=2 Discharge to the [facility], given Librium prepack. Ambulatory without deficits/no ataxia at discharge. This patient was seen under the supervision of my secondary supervising physician. I evaluated care for this patient independently. Discussed this patient with Dr. Hutchison who did not see the patient. Patient's presentation, labs/imaging, treatment and plan of care were discussed with secondary supervising physician. (Ruth Smith) Differential Diagnosis: Differential diagnosis includes but is not limited to alcohol withdrawal, gastroenteritis, appendicitis, cholecystitis, viral syndrome. (Ruth Smith) - Data Points Laboratory Results: Laboratory Results 07/04/17 18:00 07/04/17 18:00 07/04/17 07/04/17 18:00 18:00 WBC 11.35 10^3/uL H 10^3/uL (3.80-9.50) RBC 5.16 10^6/uL 10^6/uL (4.40-6.38) Hgb 15.3 g/dL g/dL (13.7-17.5) Hct 43.0 % % (40.0-51.0) MCV 83.3 fL fL (81.5-99.8) MCH 29.7 pg pg (27.9-34.1) MCHC 35.6 g/dL g/dL (32.4-36.7) RDW 14.4 % % (11.5-15.2) Plt Count 309 10^3/uL 10^3/uL (150-400) MPV 9.8 fL fL (8.7-11.7) Neut % (Auto) 88.7 % H % (39.3-74.2) Lymph % (Auto) 6.6 % L % (15.0-45.0) [place] % (Auto) 4.1 % L % (4.5-13.0) Eos % (Auto) 0.0 % L % (0.6-7.6) Baso % (Auto) 0.2 % L % (0.3-1.7) Nucleat RBC Rel Count 0.0 % % (0.0-0.2) Absolute Neuts (auto) 10.06 10^3/uL H 10^3/uL (1.70-6.50) Absolute Lymphs (auto) 0.75 10^3/uL L 10^3/uL (1.00-3.00) Absolute Monos (auto) 0.47 10^3/uL 10^3/uL (0.30-0.80) Absolute Eos (auto) 0.00 10^3/uL L 10^3/uL (0.03-0.40) Absolute Basos (auto) 0.02 10^3/uL 10^3/uL (0.02-0.10) Absolute Nucleated RBC 0.00 10^3/uL 10^3/uL (0-0.01) Immature Gran % 0.4 % % (0.0-1.1) Immature Gran # 0.05 10^3/uL 10^3/uL (0.00-0.10) Sodium 141 mEq/L mEq/L (134-144) Potassium 4.4 mEq/L mEq/L (3.5-5.2) Chloride 97 mEq/L mEq/L (97-110) Carbon Dioxide 20 mEq/l L mEq/l (22-31) Anion Gap 24 mEq/L H mEq/L (8-16) BUN 11 mg/dL mg/dL (7-23) Creatinine 1.0 mg/dL mg/dL (0.7-1.3) Estimated GFR > 60 Glucose 196 mg/dL H mg/dL (70-100) Calcium 9.6 mg/dL mg/dL (8.5-10.4) Total Bilirubin 0.8 mg/dL mg/dL (0.1-1.4) Conjugated Bilirubin 0.3 mg/dL mg/dL (0.0-0.5) Unconjugated Bilirubin 0.5 mg/dL mg/dL (0.0-1.1) AST 43 IU/L IU/L (17-59) ALT 20 IU/L L IU/L (21-72) Alkaline Phosphatase 149 IU/L H IU/L (38-126) Total Protein 7.7 g/dL g/dL (6.3-8.2) Albumin 4.2 g/dL g/dL (3.5-5.0) Lipase 80 IU/L IU/L (23-300) Ethyl Alcohol < 10 mg/dL mg/dL (0-10) Medications Given: Discontinued Medications Chlordiazepoxide (Librium 25 Mg Prepack#6) [facility] Stop: 07/04/17 18:20 Last Admin: 07/04/17 19:46 Dose: Not Given Chlordiazepoxide HCl (Librium) 25 mg PO EDNOW ONE Stop: 07/04/17 17:52 Last Admin: 07/04/17 18:10 Dose: 25 mg Sodium Chloride (Ns) 1,000 mls @ 0 mls/hr IV EDNOW ONE; Wide Open PRN Reason: Protocol Stop: 07/04/17 17:52 Last Admin: 07/04/17 18:09 Dose: 1,000 mls Sodium Chloride (Ns) 1,000 mls @ 0 mls/hr IV EDNOW ONE; Wide Open PRN Reason: Protocol Stop: 07/04/17 17:52 Last Admin: 07/04/17 18:09 Dose: 1,000 mls Promethazine HCl (Phenergan) 25 mg IVP EDNOW ONE Stop: 07/04/17 17:53 Last Admin: 07/04/17 18:07 Dose: 25 mg Departure - Departure Disposition: Other Psych, Not [place] Clinical Impression: Alcohol dependence Qualifiers: Substance use status: uncomplicated Qualified Code(s): F10.20 - Alcohol dependence, uncomplicated Condition: Fair Instructions: Alcohol Dependence (ED) Additional Instructions: Please go directly to the [facility] for further care and detox. Stop drinking alcohol. Take Librium 1-2 tabs every 6 hr as needed for alcohol withdrawal. Referrals: [facility] Detox 24 Hours [Outside] - As per Instructions
[2017-07-04] MEDS ORDERED: chlordiazePOXIDE 25 MG CAP PO ONE (17:51)
[2017-07-04] MEDS ORDERED: NS 1,000 ML IV ONE ×2 (17:51)
[2017-07-04] MEDS ORDERED: PROMETHAZINE HCL 25 MG/ML INJ IVP ONE (17:52)
[2017-07-04 18:14] LABS: PLATELET COUNT 309 10^3/uL (150-400)
[2017-07-04] MEDS ORDERED: CHLORDIAZEPOXIDE 25MG PREPK#6 BTL TAKEHOME ONE (18:19)
[2017-07-04 19:08] VITALS: BP 141/101; PULSE 110; TEMP 99; O2SAT 97
== END 2017-07-04 19:46 ==
DX: F10.20 Alcohol dependence, uncomplicated (principal); E86.9 Volume depletion, unspecified; I10 Essential (primary) hypertension
CPT/HCPCS: 96374; G0480; J2550

== ENCOUNTER 2017-12-01 18:17 | Inpatient (IN) | payer BC, OTHER ==
[2017-12-01] MEDS ORDERED: LORazepam 2 MG/ML INJ IVP ONE ×4 (18:50→22:24)
[2017-12-01] MEDS ORDERED: NS 1,000 ML IV ONE ×2 (18:50→19:11)
[2017-12-01] MEDS ORDERED: chlordiazePOXIDE 25 MG CAP PO ONE (18:50)
[2017-12-01 18:59] LABS: PLATELET COUNT 172 10^3/uL (150-400)
--- NOTE | 2017-12-01 19:05 | EDPHY ---
H & P Time Seen by Provider: 12/01/17 18:31 HPI/ROS: CHIEF COMPLAINT: Alcohol withdrawal HISTORY OF PRESENT ILLNESS: 57-year-old male presents to the emergency department by private vehicle with multiple episodes of vomiting. The patient is a known alcoholic and has not drank alcohol for the last 5 days. He has vomited multiple times and feels extremely tremulous. He has had an alcohol withdrawal related seizure in the past. He has also required admission for alcohol withdrawal. The patient typically drinks 6 beers per night which are 9 % alcohol. The patient denies abdominal pain. He feels diffuse cramping and feels very shaky. He denies a headache. Denies neck or back pain. Denies urinary symptoms. REVIEW OF SYSTEMS: Constitutional: No fever, no chills. Eyes: No double or blurry vision. ENT: No sore throat. Respiratory: No cough, no shortness of breath. Cardiac: No chest pain. Gastrointestinal: Vomiting as above. No abdominal pain or diarrhea Genitourinary: No dysuria. Musculoskeletal: No neck or back pain. Skin: No rashes. Neurological: No headache. Past Medical/Surgical History: Alcoholism, alcohol withdrawal related seizure, intracranial hemorrhage, depression, hypertension, perforated ulcer, gout, obstructive sleep apnea uses CPAP Social History: Smoking Status: Never smoked Physical Exam: General Appearance: Alert, no distress. Tremulous. 134/88, heart rate 124, respirations 20, 97% on room air, afebrile with a temperature 37.0 degrees. Eyes: Pupils equal and round. Extraocular motions are all intact. ENT: Mouth: Mucous membranes appears very dry. Respiratory: No wheezing, rhonchi, or rales, lungs are clear to auscultation. Cardiovascular: Regular rate and rhythm. Gastrointestinal: Abdomen is soft and nontender, no masses, no rebound or guarding, bowel sounds normal. Neurological: Alert and oriented x 3, cranial nerves II through XII grossly intact Skin: Warm and dry, no rashes. Musculoskeletal: Nontender to palpate along the cervical, thoracic or lumbar spine. Neck is supple. Extremities: Full range of motion and no peripheral edema. Psychiatric: Patient is oriented X 3, there is no agitation. Constitutional: Initial Vital Signs Temperature (C) 37.0 C 12/01/17 18:25 Heart Rate 124 H 12/01/17 18:25 Respiratory Rate 20 06/03/18 18:25 Blood Pressure 134/88 H 12/01/17 18:25 O2 Sat (%) 97 12/01/17 18:25 O2 Delivery Mode Room Air Allergies/Adverse Reactions: No Known Allergies Allergy (Verified 07/04/17 17:14) Home Medications: Medication Instructions Recorded Gabapentin [Neurontin 300 MG (*)] 300 mg PO 08,14 #60 cap 01/29/17 Gabapentin [Neurontin] 600 mg PO HS #30 tablet 01/29/17 Albuterol [Proventil Inhaler HFA 2 puffs IH Q4 PRN 05/11/17 (*)] Cetirizine [ZyrTEC 10 mg (*)] 10 mg PO DAILY 05/11/17 Propranolol HCl [Propranolol HCl 120 mg PO DAILY 05/11/17 ER] Citalopram [CeleXA 20 MG] 20 mg PO DAILY #30 tab 05/14/17 Indomethacin [Indocin 25 mg (*)] 25 mg PO TID PRN #30 cap 05/14/17 Multivitamins [Multivitamin (*)] 1 each PO DAILY #30 tab 05/14/17 Pantoprazole Sodium [Protonix 40mg 40 mg PO DAILY #30 tab 05/14/17 (*)] buPROPion SR [Wellbutrin 150mg SR 150 mg PO DAILY #30 tab 05/14/17 (*)] Propranolol Sr [Inderal LA 60mg 120 mg PO DAILY cap 05/19/17 (*)] Medical Decision Making ED Course/Re-evaluation: 57-year-old male presents to the emergency department with alcohol withdrawal, vomiting and feeling tremulous. He has been admitted in the past with similar symptoms related to alcohol withdrawal. The patient has had multiple episodes of vomiting. He had an IV established and was given 2 L of IV normal saline, 3 mg of IV Ativan, 50 mg of Librium orally. He did not have any seizure activity in the emergency department. He still remained extremely tremulous. The patient was monitored for several hours in the emergency department. He was easily arousable. He was tremulous and starting to hallucinate stating that there were dogs in the room. The family at bedside feels strongly that the patient requires admission to the hospital. I did offer [facility] the [facility]. The daughter at bedside thinks that she has been a before. The case was discussed with Dr. Sandoval, secondary supervising physician, who did not directly evaluate the patient but agrees with treatment and plan. CIWA score of 8. Patient will be admitted to Dr. Kemal Odom, hospitalist to the medical- surgical floor. Differential Diagnosis: Including but not limited to alcohol withdrawal, dehydration, gastritis, delirium - Data Points Laboratory Results: Laboratory Results 12/01/17 18:47 12/01/17 18:47 12/01/17 12/01/17 12/01/17 19:40 18:47 18:47 WBC RBC Hgb Hct MCV MCH MCHC RDW Plt Count MPV Neut % (Auto) Lymph % (Auto) [place] % (Auto) Eos % (Auto) Baso % (Auto) Nucleat RBC Rel Count Absolute Neuts (auto) Absolute Lymphs (auto) Absolute Monos (auto) Absolute Eos (auto) Absolute Basos (auto) Absolute Nucleated RBC Immature Gran % Immature Gran # VBG Lactic Acid 1.7 mmol/L mmol/L (0.7-2.1) Sodium 134 mEq/L L mEq/L (135-145) Potassium 4.3 mEq/L mEq/L (3.3-5.0) Chloride 90 mEq/L L mEq/L (97-110) Carbon Dioxide 26 mEq/l mEq/l (22-31) Anion Gap 18 mEq/L H mEq/L (8-16) BUN 30 mg/dL H mg/dL (7-23) Creatinine 1.5 mg/dL H mg/dL (0.7-1.3) Estimated GFR 48 Glucose 119 mg/dL H mg/dL (70-100) Calcium 10.8 mg/dL H mg/dL (8.5-10.4) Phosphorus 4.0 mg/dL mg/dL (2.5-4.5) Total Bilirubin 1.7 mg/dL H mg/dL (0.1-1.4) Conjugated Bilirubin 0.7 mg/dL H mg/dL (0.0-0.5) Unconjugated Bilirubin 1.0 mg/dL mg/dL (0.0-1.1) AST 101 IU/L H IU/L (17-59) ALT 74 IU/L H IU/L (21-72) Alkaline Phosphatase 120 IU/L IU/L (38-126) Total Protein 8.3 g/dL H g/dL (6.3-8.2) Albumin 4.4 g/dL g/dL (3.5-5.0) Ethyl Alcohol < 10 mg/dL mg/dL (0-10) 12/01/17 18:47 WBC 8.70 10^3/uL 10^3/uL (3.80-9.50) RBC 5.05 10^6/uL 10^6/uL (4.40-6.38) Hgb 15.1 g/dL g/dL (13.7-17.5) Hct 44.8 % % (40.0-51.0) MCV 88.7 fL fL (81.5-99.8) MCH 29.9 pg pg (27.9-34.1) MCHC 33.7 g/dL g/dL (32.4-36.7) RDW 13.9 % % (11.5-15.2) Plt Count 172 10^3/uL 10^3/uL (150-400) MPV 10.3 fL fL (8.7-11.7) Neut % (Auto) 71.3 % % (39.3-74.2) Lymph % (Auto) 14.1 % L % (15.0-45.0) [place] % (Auto) 13.7 % H % (4.5-13.0) Eos % (Auto) 0.1 % L % (0.6-7.6) Baso % (Auto) 0.5 % % (0.3-1.7) Nucleat RBC Rel Count 0.0 % % (0.0-0.2) Absolute Neuts (auto) 6.20 10^3/uL 10^3/uL (1.70-6.50) Absolute Lymphs (auto) 1.23 10^3/uL 10^3/uL (1.00-3.00) Absolute Monos (auto) 1.19 10^3/uL H 10^3/uL (0.30-0.80) Absolute Eos (auto) 0.01 10^3/uL L 10^3/uL (0.03-0.40) Absolute Basos (auto) 0.04 10^3/uL 10^3/uL (0.02-0.10) Absolute Nucleated RBC 0.00 10^3/uL 10^3/uL (0-0.01) Immature Gran % 0.3 % % (0.0-1.1) Immature Gran # 0.03 10^3/uL 10^3/uL (0.00-0.10) VBG Lactic Acid Sodium Potassium Chloride Carbon Dioxide Anion Gap BUN Creatinine Estimated GFR Glucose Calcium Phosphorus Total Bilirubin Conjugated Bilirubin Unconjugated Bilirubin AST ALT Alkaline Phosphatase Total Protein Albumin Ethyl Alcohol Medications Given: Discontinued Medications Chlordiazepoxide HCl (Librium) 50 mg PO EDNOW ONE Stop: 12/01/17 18:51 Last Admin: 12/01/17 18:57 Dose: 50 mg Sodium Chloride (Ns) 1,000 mls @ 0 mls/hr IV ONCE ONE PRN Reason: Wide Open Stop: 12/01/17 18:51 Last Admin: 12/01/17 18:58 Dose: 1,000 mls Sodium Chloride (Ns) 1,000 mls @ 0 mls/hr IV ONCE ONE PRN Reason: Wide Open Stop: 12/01/17 19:12 Last Admin: 12/01/17 19:15 Dose: 1,000 mls Lorazepam (Ativan Injection) 1 mg IVP EDNOW ONE Stop: 12/01/17 18:51 Last Admin: 12/01/17 18:58 Dose: 1 mg Lorazepam (Ativan Injection) 1 mg IVP EDNOW ONE Stop: 12/01/17 19:30 Last Admin: 12/01/17 19:30 Dose: 1 mg Lorazepam (Ativan Injection) 1 mg IVP EDNOW ONE Stop: 12/01/17 19:57 Last Admin: 12/01/17 19:56 Dose: 1 mg Lorazepam (Ativan Injection) 1 mg IVP EDNOW ONE Stop: 12/01/17 22:25 Last Admin: 12/01/17 22:28 Dose: 1 mg Departure - Departure Disposition: [facility] Acute Clinical Impression: Alcohol dependence Qualifiers: Substance use status: in withdrawal Complication of substance-induced condition : with delirium Qualified Code(s): F10.231 - Alcohol dependence with withdrawal delirium Alcohol withdrawal Qualifiers: Complication of substance-induced condition: with delirium Qualified Code(s): F10.231 - Alcohol dependence with withdrawal delirium Condition: Good
[2017-12-01] MEDS ORDERED: LORazepam 2 MG/ML INJ ONE (19:28)
[2017-12-01] MEDS ORDERED: FLUMAZENIL 0.5 MG/5 ML MDV IVP PRN (23:07)
[2017-12-01] MEDS ORDERED: ONDANSETRON 4 MG/2 ML VIAL IVP PRN (23:08)
[2017-12-01] MEDS ORDERED: ONDANSETRON DISINTEGRATING 4 MG TAB PO PRN (23:08)
[2017-12-01] MEDS: NS 1,000 ML IV SCH (23:20)
[2017-12-01] MEDS ORDERED: PNEUMOCOCCAL 0.5ML VACCINE VIAL IM ONE (23:49)
[2017-12-02] MEDS: LORazepam 2 MG/ML INJ IVP PRN ×7 (00:07→15:15)
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
[2017-12-02 05:23] LABS: INR 1.04 (0.83-1.16); PROTIME(PATIENT) 13.8 SEC (12.0-15.0)
[2017-12-02 05:25] LABS: PLATELET COUNT 109 10^3/uL (150-400)
[2017-12-02] MEDS: NS 1,000 ML IV SCH ×2 (06:22→14:38)
[2017-12-02] MEDS: THIAMINE HCL 500 MG in NS 100 ML IV SCH (07:27)
[2017-12-02] MEDS ORDERED: ENOXAPARIN 30 MG/0.3 ML SYR SC SCH (09:00)
--- NOTE | 2017-12-02 10:13 | PDMN ---
Medical Necessity Medical necessity: Patient meets inpatient criteria per physician note and [facility] M -595 Substance-Related Disorders - (alcohol withdrawal: tremulous, slightly confused, tachycardia, N/V after independently stopping alcohol after chronic abuse and history of withdrawal seizures; ROGELIO/Creat 1.5; anticipated LOS > 2 midnights for IV fluids, scheduled Ativan, ongoing treatment of alcohol withdrawal.)
--- NOTE | 2017-12-02 10:31 | ASMTCASEMG ---
Living Arrangements What is your living Answers: With Spouse arrangement? Who do you live with? Type Of Residence What kind of residence do Answers: House you live in? Discharge Plan Comments Coordination Status Comments Notes: Pt is a 57 y/o man admitted for etoh withdrawals. Pt has a hx of etoh seizures. OT is recommending SNF. OT reports that pt is tremulous and hallucinating. PT is pending. Needs are TBD at this time. CM will f/u once pt is more stable. Plan: TBD Date Signed: 12/02/2017 10:30 AM Electronically Signed By:DARREN Branham
[2017-12-02] MEDS ORDERED: LORazepam 2 MG/ML INJ IVP ONE (11:36)
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
[2017-12-02] MEDS: DEXMEDETOMIDINE HCL 400 MCG in NS 100 ML IV SCH ×2 (14:30→22:00)
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
[2017-12-02] MEDS: HALOPERIDOL LACT 5 MG/ML INJ IVP PRN (16:00)
[2017-12-02] MEDS: LORazepam 2 MG/ML INJ IVP SCH (17:30)
[2017-12-02] MEDS ORDERED: LORazepam 1 MG TAB PO SCH (18:00)
[2017-12-03] MEDS: DEXMEDETOMIDINE HCL 400 MCG in NS 100 ML IV SCH ×4 (00:52→23:14)
[2017-12-03] MEDS: LORazepam 2 MG/ML INJ IVP SCH ×4 (00:55→20:49)
[2017-12-03] MEDS: LORazepam 2 MG/ML INJ IVP PRN ×4 (05:30→14:49)
[2017-12-03] MEDS ORDERED: PROTOCOL MAGNESIUM 1 DOSE IV PRN (06:53)
[2017-12-03] MEDS ORDERED: PROTOCOL POTASSIUM 1 DOSE MISC PRN ×2 (06:53→23:23)
[2017-12-03] MEDS ORDERED: POTASSIUM CL 20 MEQ TAB PO ONE (07:00)
[2017-12-03] MEDS: ENOXAPARIN 40 MG/0.4 ML SYR SC SCH (08:09)
[2017-12-03] MEDS: PANTOPRAZOLE SODIUM 40 MG VIAL IVP SCH (08:13)
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
[2017-12-03] MEDS: THIAMINE HCL 500 MG in NS 100 ML IV SCH (08:36)
[2017-12-03] MEDS ORDERED: MAGNESIUM SULF 2 GM/WATER 50 ML IV ONE (08:37)
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
[2017-12-03] MEDS: MULTIVITAMINS 1 EACH TAB PO SCH (10:41)
[2017-12-03] MEDS: FOLIC ACID 1 MG TAB PO SCH (10:41)
[2017-12-03] MEDS: NS 1,000 ML IV SCH (16:03)
[2017-12-03] MEDS ORDERED: POTASSIUM CL 10 MEQ TAB PO ONE (20:50)
[2017-12-04] MEDS: LORazepam 2 MG/ML INJ IVP SCH ×4 (00:29→18:26)
[2017-12-04] MEDS: NS W/ 20 KCl/L 1,000 ML IV SCH ×3 (00:31→17:39)
[2017-12-04] MEDS ORDERED: POTASSIUM Cl (KCl) 50 ML IV SCH (02:00)
[2017-12-04] MEDS ORDERED: POTASSIUM CL 20 MEQ TAB PO ONE ×2 (02:15→08:30)
[2017-12-04] MEDS: DEXMEDETOMIDINE HCL 400 MCG in NS 100 ML IV SCH ×3 (05:51→19:15)
[2017-12-04] MEDS ORDERED: MAGNESIUM SULF 2 GM/WATER 50 ML IV ONE (08:19)
[2017-12-04] MEDS: THIAMINE HCL 500 MG in NS 100 ML IV SCH (08:23)
[2017-12-04] MEDS: ENOXAPARIN 40 MG/0.4 ML SYR SC SCH (08:37)
[2017-12-04] MEDS: FOLIC ACID 1 MG TAB PO SCH (08:39)
[2017-12-04] MEDS: MULTIVITAMINS 1 EACH TAB PO SCH (08:49)
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
[2017-12-04] MEDS: PANTOPRAZOLE SODIUM 40 MG VIAL IVP SCH (09:00)
[2017-12-04] MEDS: ACETAMINOPHEN 325 MG TAB PO PRN ×3 (09:15→23:22)
[2017-12-04] MEDS: LORazepam 1 MG TAB PO PRN (09:15)
[2017-12-04] MEDS: POTASSIUM Cl (KCl) 100 ML IV SCH ×2 (11:20→11:21)
[2017-12-04] MEDS: COLCHICINE 0.6 MG CAP/TAB PO SCH (14:20)
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
[2017-12-04] MEDS: LORazepam 2 MG/ML INJ IVP PRN (20:20)
[2017-12-04] MEDS ORDERED: THIAMINE HCL 100 MG TAB PO SCH (23:07)
[2017-12-05] MEDS: LORazepam 2 MG/ML INJ IVP SCH ×3 (00:11→12:03)
[2017-12-05] MEDS: NS W/ 20 KCl/L 1,000 ML IV SCH ×2 (00:11→23:29)
[2017-12-05] MEDS ORDERED: PROTOCOL POTASSIUM 1 DOSE MISC PRN (00:49)
[2017-12-05] MEDS ORDERED: POTASSIUM CL 10 MEQ TAB PO ONE ×3 (00:50→20:49)
[2017-12-05] MEDS ORDERED: POTASSIUM Cl (KCl) 100 ML IV SCH (01:00)
[2017-12-05] MEDS ORDERED: MAGNESIUM SULF 1 GM/DEXTROSE 100 ML IV ONE (06:17)
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
[2017-12-05] MEDS: ACETAMINOPHEN 325 MG TAB PO PRN ×2 (08:42→23:26)
[2017-12-05] MEDS: PANTOPRAZOLE SODIUM 40 MG VIAL IVP SCH (08:42)
[2017-12-05] MEDS: COLCHICINE 0.6 MG CAP/TAB PO SCH (08:42)
[2017-12-05] MEDS: MULTIVITAMINS 1 EACH TAB PO SCH (08:43)
[2017-12-05] MEDS: FOLIC ACID 1 MG TAB PO SCH (08:43)
[2017-12-05] MEDS: THIAMINE HCL 100 MG TAB PO SCH (08:43)
[2017-12-05] MEDS: LORazepam 2 MG/ML INJ IVP PRN ×2 (08:54→16:20)
[2017-12-05] MEDS ORDERED: DEXMEDETOMIDINE IN 0.9 % NACL 100 ML IV SCH (10:00)
--- NOTE | 2017-12-05 11:26 | ASMTCMCOM ---
CM Note CM Note Notes: Attempted to speak with patient about discharge planning, but the conversation was limited by his pain and slow processing speed. We touched briefly on PT's recommendation for SNF, but I'm not sure if patient fully grasped what SNF is. He mentioned that his is at the [facility] in [place] receiving tx for esophageal cancer, and that he needs to help her. I encouraged him to focus on his own treatment. I asked if I could call his daughter Aniya, and he said she is on a flight. Upon further investigation, he said that both of his daughters are on flights to [place] right now. They will arrive tonight. I suggested we all meet tomorrow to discuss discharge planning and goals. He agreed. Spiritual care notified and will follow along with us. Date Signed: 12/05/2017 11:26 AM Electronically Signed By:Hannah Wilson RN
[2017-12-05] MEDS: ENOXAPARIN 40 MG/0.4 ML SYR SC SCH (12:10)
[2017-12-05] MEDS ORDERED: traMADol 50 MG TAB PO PRN (12:19)
[2017-12-05] MEDS: GABAPENTIN 300 MG CAP PO SCH ×2 (13:16→20:27)
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
--- NOTE | 2017-12-05 15:19 | ASMTCMCOM ---
CM Note CM Note Notes: Patients two daughters and (ex?) Yadira showed up at hospital. I explained to them PT/OT recommendation for SNF but also that the more relevant (and chronic) problem of patient's alcoholism is also being considered in discharge planning. They agreed that he needs both physical and psychiatric rehab, ideally in the same setting. I explained that I wasnt' sure a place like that existed but that we could explore d/c to SNF with subsequent direct d/c to inpatient behavioral health. Patient's daughter Aniya (who seems to be the spokesperson in the family) desires this plan. She requested a list of inpatient behavioral health facilities. I found one on the [employer] website; we will bring this as well as a list of SNF to the family meeting. Martha [facility]ster [facility] will confirm an 11am family meeting with Aniya tomorrow. They will call patient's other daughter during the meeting. Case Management will assist. Date Signed: 12/05/2017 03:18 PM Electronically Signed By:Hannah Wilson RN
[2017-12-05] MEDS: LORazepam 1 MG TAB PO PRN (15:49)
[2017-12-05] MEDS: LORazepam 1 MG TAB PO SCH ×2 (18:34→23:26)
[2017-12-05] MEDS: HALOPERIDOL LACT 5 MG/ML INJ IVP PRN (20:27)
[2017-12-06] MEDS: LORazepam 2 MG/ML INJ IVP PRN (02:33)
[2017-12-06] MEDS: LORazepam 1 MG TAB PO SCH ×4 (05:49→22:59)
[2017-12-06] MEDS: NS W/ 20 KCl/L 1,000 ML IV SCH ×2 (06:07→17:12)
[2017-12-06] MEDS ORDERED: POTASSIUM CL 10 MEQ TAB PO ONE ×2 (09:20→19:41)
[2017-12-06] MEDS: GABAPENTIN 300 MG CAP PO SCH ×3 (09:41→21:19)
[2017-12-06] MEDS: COLCHICINE 0.6 MG CAP/TAB PO SCH (09:42)
[2017-12-06] MEDS: MULTIVITAMINS 1 EACH TAB PO SCH (09:42)
[2017-12-06] MEDS: ENOXAPARIN 40 MG/0.4 ML SYR SC SCH (09:42)
[2017-12-06] MEDS: FOLIC ACID 1 MG TAB PO SCH (09:42)
[2017-12-06] MEDS: THIAMINE HCL 100 MG TAB PO SCH (09:42)
[2017-12-06] MEDS: PANTOPRAZOLE SODIUM 40 MG TAB PO SCH (09:48)
[2017-12-06] MEDS: LORazepam 1 MG TAB PO PRN ×2 (09:48→21:20)
[2017-12-06] MEDS: PANTOPRAZOLE SODIUM 40 MG VIAL IVP SCH (10:13)
[2017-12-06] MEDS ORDERED: MAGNESIUM SULF 1 GM/DEXTROSE 100 ML IV ONE (15:30)
[2017-12-06] MEDS ORDERED: ALBUTEROL 60 PUFFS/8 GM MDI IH PRN (15:59)
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
[2017-12-06] MEDS: predniSONE 20 MG TAB PO SCH (17:07)
--- NOTE | 2017-12-06 17:11 | ASMTCMCOM ---
CM Note CM Note Notes: Attended family meeting with spiritual care, pt's daughter Aniya and her sister Cassie and mother Yadira (pt's exwife) were on the phone. Pt is still not functioning well and was quite tremulous and tearful throughout meeting. We discussed several options regarding rehab for his physical recovery and treatment for his alcoholism. Pt was quick to point out that his previous 3 rehab stays "didn't work." It was suggested that perhaps a residential program would be more appropriate when he is physically healthier. Pt was encouraged to focus on getting better here in the hospital and d/c options could continue to be discussed. It is hard to know at this time how much progress he will make and whether inpt rehab or SNF would be recommended. Spoke with Swapna at [facility] as pt had been there last December. Pt is having difficulty focusing on himself and appears more concerned at this time with whether his Isabella still wants a divorce. Isabella was not supportive of d/c options last December and is currently struggling with her own health issues. His exwife and daughters are very supportive and encouraging. As pt clears, further discussions can be pursued. Date Signed: 12/06/2017 05:10 PM Electronically Signed By:EMMA Villarreal
[2017-12-06] MEDS: buPROPion SR 150 MG TAB PO SCH (21:19)
[2017-12-06] MEDS ORDERED: LORazepam 1 MG TAB PO SCH (23:08)
[2017-12-07] MEDS: LORazepam 1 MG TAB PO PRN ×2 (03:23→20:36)
[2017-12-07] MEDS: LORazepam 1 MG TAB PO SCH ×3 (05:16→18:07)
[2017-12-07] MEDS ORDERED: MAGNESIUM SULF 1 GM/DEXTROSE 100 ML IV ONE (07:21)
[2017-12-07] MEDS: MULTIVITAMINS 1 EACH TAB PO SCH ×2 (09:00→09:07)
[2017-12-07] MEDS: predniSONE 20 MG TAB PO SCH (09:00)
[2017-12-07] MEDS: COLCHICINE 0.6 MG CAP/TAB PO SCH (09:00)
[2017-12-07] MEDS: GABAPENTIN 300 MG CAP PO SCH ×3 (09:00→20:36)
[2017-12-07] MEDS: ENOXAPARIN 40 MG/0.4 ML SYR SC SCH (09:00)
[2017-12-07] MEDS: THIAMINE HCL 100 MG TAB PO SCH (09:00)
[2017-12-07] MEDS: buPROPion SR 150 MG TAB PO SCH ×2 (09:00→20:36)
[2017-12-07] MEDS: amLODIPine BESYLATE 5 MG TAB PO SCH (09:01)
[2017-12-07] MEDS: CITALOPRAM 20 MG TAB PO SCH (09:01)
[2017-12-07] MEDS: PROPRANOLOL SR 60 MG CAP PO SCH (09:01)
[2017-12-07] MEDS: PANTOPRAZOLE SODIUM 40 MG TAB PO SCH ×2 (09:01→09:02)
[2017-12-07] MEDS: FOLIC ACID 1 MG TAB PO SCH (09:01)
[2017-12-07] MEDS: LORazepam 2 MG/ML INJ IVP PRN ×2 (09:59→16:25)
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
--- NOTE | 2017-12-07 16:51 | ASMTCMCOM ---
CM Note CM Note Notes: 12/07/2017 Case Management Note Met w/pt, daughter Aniya Murillo [phone] (designated spokesperson), daughter Lucía Murillo [phone] and ex Yadira Murillo. Pt is to Isabella Murillo who is currently under treatment at the [facility] is [place]. Isabella holds the primary MDPOA however, she is not decisional at this time. Aniya and Lucía or co MDPOAs and are speaking on pt behalf at this time. Discussed various discharge options for pt. Faxed referrals to [facility]: [facility], [facility], [facility] and [facility]. Attempted to contact [employer] [facility] to obtain a list of inpatient drug rehab facilities covered under insurance. It was after hours, unable to obtain information. Explored [facility] website and gave Aniya a list of behavioral health centers. Provided info on the [facility] and encouraged family to explore [facility] based inpatient drug cessation programs as an alternative. Family wants a 6 - 9 month program, a duration that is unlikely to be covered by insurance. Aniya is out of town from Saturday to Saturday and is hoping to have a discharge plan secured prior to leaving. Explained that requested info from [facility] is not accessible until normal business hours during the week. Case Management d/c poc: to be determined. Case Management to follow. Date Signed: 12/07/2017 04:51 PM Electronically Signed By:Jessica Eason RN
[2017-12-07] MEDS ORDERED: POTASSIUM CL 10 MEQ TAB PO ONE (19:57)
[2017-12-07] MEDS: HALOPERIDOL LACT 5 MG/ML INJ IVP PRN (20:36)
[2017-12-08] MEDS: LORazepam 1 MG TAB PO SCH ×4 (00:13→18:28)
[2017-12-08] MEDS: LORazepam 1 MG TAB PO PRN (03:22)
[2017-12-08] MEDS ORDERED: POTASSIUM CL 10 MEQ TAB PO ONE (07:19)
[2017-12-08] MEDS ORDERED: MAGNESIUM SULF 1 GM/DEXTROSE 100 ML IV ONE (07:20)
[2017-12-08] MEDS: LORazepam 2 MG/ML INJ IVP PRN (07:46)
[2017-12-08] MEDS: predniSONE 20 MG TAB PO SCH (07:47)
[2017-12-08] MEDS: THIAMINE HCL 100 MG TAB PO SCH (07:47)
[2017-12-08] MEDS: ENOXAPARIN 40 MG/0.4 ML SYR SC SCH (07:47)
[2017-12-08] MEDS: GABAPENTIN 300 MG CAP PO SCH ×3 (07:47→20:56)
[2017-12-08] MEDS: CITALOPRAM 20 MG TAB PO SCH (07:47)
[2017-12-08] MEDS: PROPRANOLOL SR 60 MG CAP PO SCH (07:48)
[2017-12-08] MEDS: amLODIPine BESYLATE 5 MG TAB PO SCH (07:49)
[2017-12-08] MEDS: FOLIC ACID 1 MG TAB PO SCH (07:49)
[2017-12-08] MEDS: buPROPion SR 150 MG TAB PO SCH ×2 (07:49→20:56)
[2017-12-08] MEDS: PANTOPRAZOLE SODIUM 40 MG TAB PO SCH (07:49)
[2017-12-08] MEDS: MULTIVITAMINS 1 EACH TAB PO SCH ×2 (07:49→07:50)
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
--- NOTE | 2017-12-08 15:57 | ASMTCMCOM ---
CM Note CM Note Notes: Pt's Isabella visited pt today. Apparently she was discharged from the [facility] this morning and got on a plane for [place]. CM did not see pt or family today. Per engagement director, pt's dtr Aniya has canceled her weeklong trip to be here this week to "ensure pt gets to the right etoh treatment facility." She also wants to assume health care proxy decision making - Isabella is the designated proxy, copy is in pt's chart. Previously, pt's exwife and daughters were saying Isabella is "nondecisional." PT/OT are recommending SNF d/c at this time. [facility] has accepted pt. Date Signed: 12/08/2017 03:56 PM Electronically Signed By:EMMA Villarreal
[2017-12-08] MEDS: MELATONIN 3 MG TAB PO SCH (20:56)
[2017-12-09] MEDS: LORazepam 1 MG TAB PO SCH ×2 (00:35→06:11)
[2017-12-09] MEDS ORDERED: POTASSIUM CL 10 MEQ TAB PO ONE (09:04)
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
[2017-12-09] MEDS ORDERED: LORazepam 1 MG TAB PO PRN (09:42)
[2017-12-09] MEDS: buPROPion SR 150 MG TAB PO SCH ×2 (09:59→20:25)
[2017-12-09] MEDS: PROPRANOLOL SR 60 MG CAP PO SCH (09:59)
[2017-12-09] MEDS: predniSONE 20 MG TAB PO SCH (09:59)
[2017-12-09] MEDS: FOLIC ACID 1 MG TAB PO SCH (09:59)
[2017-12-09] MEDS: CITALOPRAM 20 MG TAB PO SCH (10:00)
[2017-12-09] MEDS: PANTOPRAZOLE SODIUM 40 MG TAB PO SCH (10:00)
[2017-12-09] MEDS: GABAPENTIN 300 MG CAP PO SCH ×3 (10:00→20:25)
[2017-12-09] MEDS: THIAMINE HCL 100 MG TAB PO SCH (10:00)
[2017-12-09] MEDS: ENOXAPARIN 40 MG/0.4 ML SYR SC SCH (10:01)
[2017-12-09] MEDS: amLODIPine BESYLATE 5 MG TAB PO SCH (10:01)
[2017-12-09] MEDS: MULTIVITAMINS 1 EACH TAB PO SCH (10:04)
[2017-12-09] MEDS: chlordiazePOXIDE 25 MG CAP PO SCH ×2 (10:04→20:25)
[2017-12-09] MEDS ORDERED: MAGNESIUM SULF 1 GM/DEXTROSE 100 ML IV ONE (10:42)
--- NOTE | 2017-12-09 16:46 | ASMTCMCOM ---
CM Note CM Note Notes: Attempted to meet with patient twice today but he was on the phone. Will try again tomorrow. CM will follow. Date Signed: 12/09/2017 04:45 PM Electronically Signed By:Tabitha Fernandes LCSW
[2017-12-09] MEDS: MELATONIN 3 MG TAB PO SCH (20:26)
[2017-12-10] MEDS: chlordiazePOXIDE 25 MG CAP PO SCH (20:30)
[2017-12-10] MEDS: GABAPENTIN 300 MG CAP PO SCH (20:30)
[2017-12-10] MEDS: buPROPion SR 150 MG TAB PO SCH (20:30)
[2017-12-10] MEDS: MELATONIN 3 MG TAB PO SCH (20:30)
--- NOTE | 2017-12-10 22:30 | ASMTCMCOM ---
CM Note CM Note Notes: Pt agreeable to SNF d/c, chooses [facility]. [facility] has started insurance authorization. D/c plan of care: [facility] when medically stable. Date Signed: 12/10/2017 02:24 PM Electronically Signed By:EMMA Jennings
[2017-12-11] MEDS ORDERED: POTASSIUM CL 10 MEQ TAB PO ONE (07:18)
[2017-12-11] MEDS: amLODIPine BESYLATE 5 MG TAB PO SCH ×2 (07:19→08:18)
[2017-12-11] MEDS: chlordiazePOXIDE 25 MG CAP PO SCH ×3 (07:20→21:41)
[2017-12-11] MEDS: buPROPion SR 150 MG TAB PO SCH ×3 (07:20→21:41)
[2017-12-11] MEDS: CITALOPRAM 20 MG TAB PO SCH ×2 (07:20→08:18)
[2017-12-11] MEDS: ENOXAPARIN 40 MG/0.4 ML SYR SC SCH ×2 (07:21→08:19)
[2017-12-11] MEDS: GABAPENTIN 300 MG CAP PO SCH ×4 (07:21→21:40)
[2017-12-11] MEDS: PANTOPRAZOLE SODIUM 40 MG TAB PO SCH ×2 (07:21→08:18)
[2017-12-11] MEDS: FOLIC ACID 1 MG TAB PO SCH ×2 (07:21→08:18)
[2017-12-11] MEDS: MULTIVITAMINS 1 EACH TAB PO SCH ×2 (07:21→08:18)
[2017-12-11] MEDS: PROPRANOLOL SR 60 MG CAP PO SCH ×2 (07:21→08:13)
[2017-12-11] MEDS: THIAMINE HCL 100 MG TAB PO SCH ×2 (07:22→08:16)
[2017-12-11] MEDS: predniSONE 20 MG TAB PO SCH (07:22)
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
--- NOTE | 2017-12-11 16:42 | ASMTCMCOM ---
CM Note CM Note Notes: Pt medically stable for d/c, insurance auth still not obtained by for [facility]. Date Signed: 12/11/2017 04:42 PM Electronically Signed By:EMMA Jennings
[2017-12-11] MEDS ORDERED: ZOLPIDEM TARTRATE 5 MG TAB PO PRN ×2 (18:24→19:13)
[2017-12-11] MEDS: MELATONIN 3 MG TAB PO SCH (21:41)
[2017-12-12] MEDS ORDERED: MAGNESIUM SULF 1 GM/DEXTROSE 100 ML IV ONE (07:31)
[2017-12-12] MEDS ORDERED: MAGNESIUM SULF 1 GM/DEXTROSE 100 ML BAG IV ONE (08:02)
[2017-12-12] MEDS: MULTIVITAMINS 1 EACH TAB PO SCH (08:04)
[2017-12-12] MEDS: THIAMINE HCL 100 MG TAB PO SCH (08:05)
[2017-12-12] MEDS: chlordiazePOXIDE 25 MG CAP PO SCH (08:05)
[2017-12-12] MEDS: FOLIC ACID 1 MG TAB PO SCH (08:06)
[2017-12-12] MEDS: PANTOPRAZOLE SODIUM 40 MG TAB PO SCH (08:09)
[2017-12-12] MEDS: GABAPENTIN 300 MG CAP PO SCH ×2 (08:10→15:40)
[2017-12-12] MEDS: buPROPion SR 150 MG TAB PO SCH (08:10)
[2017-12-12] MEDS: CITALOPRAM 20 MG TAB PO SCH (08:11)
[2017-12-12] MEDS: ENOXAPARIN 40 MG/0.4 ML SYR SC SCH (08:14)
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
--- NOTE | 2017-12-12 13:53 | PDIAF ---
- Diagnosis Diagnosis: acute alcohol withdrawal, gout, gait instability Code Status: Full Code - Medication Management Discharge Medications: Medications to Continue on Transfer Gabapentin [Neurontin 300 MG (*)] 300 mg PO ,14 #60 cap 01/29/17 [Last Taken 12/01/17 14:00] Gabapentin [Neurontin] 600 mg PO HS #30 tablet 01/29/17 [Last Taken 12/01/17] Albuterol [Proventil Inhaler HFA (*)] 2 puffs IH Q4 PRN 05/11/17 [Last Taken Unknown] Cetirizine [ZyrTEC 10 mg (*)] 10 mg PO DAILY 05/11/17 [Last Taken 12/01/17] Citalopram [CeleXA 20 MG] 20 mg PO DAILY #30 tab 05/14/17 [Last Taken 12/01/17] Multivitamins [Multivitamin (*)] 1 each PO DAILY #30 tab 05/14/17 [Last Taken ] Pantoprazole Sodium [Protonix 40mg (*)] 40 mg PO DAILY #30 tab 05/14/17 [Last Taken 12/01/17] Propranolol Sr [Inderal LA 60mg (*)] 120 mg PO DAILY cap 05/19/17 [Last Taken 12/01/17] Allopurinol [Allopurinol 100 MG (*)] 100 mg PO DAILY 12/02/17 [Last Taken Unknown] Herbals/Supplements -Info Only 1 ea PO DAILY 12/02/17 [Last Taken Unknown] Indomethacin [Indocin 25 mg (*)] 50 mg PO TID PRN 12/02/17 [Last Taken Unknown] Multivitamins [Multivitamin (*)] 1 each PO DAILY 12/02/17 [Last Taken Unknown] Niacin [Niacin 500 mg (*)] 250 mg PO DAILY 12/02/17 [Last Taken Unknown] Ondansetron HCl [Zofran] 4 mg PO Q4HRS PRN 12/02/17 [Last Taken Unknown] amLODIPine BESYLATE [Norvasc 5 mg (*)] 5 mg PO DAILY 12/02/17 [Last Taken Unknown] buPROPion SR [Wellbutrin 150mg SR (*)] 150 mg PO BID 12/02/17 [Last Taken ] celeCOXIB [Celebrex (*)] 200 mg PO DAILY 12/02/17 [Last Taken Unknown] chlordiazePOXIDE [Librium 25 mg (*)] 25 mg PO BID 12/02/17 [Last Taken Unknown] Acetaminophen [Tylenol 325mg (*)] 650 mg PO Q4HRS PRN tab 12/11/17 [Last Taken Unknown] Folic Acid [Folic Acid 1 MG (*)] 1 mg PO DAILY tab 12/11/17 [Last Taken Unknown ] Melatonin [Melatonin 3 MG (*)] 3 mg PO HS tab 12/11/17 [Last Taken Unknown] Thiamine HCl [Vitamin B-1] 100 mg PO DAILY tab 12/11/17 [Last Taken Unknown] traMADol [Ultram 50 mg (*)] 50 mg PO Q6 PRN tab 12/11/17 [Last Taken Unknown] Zolpidem Tartrate [Ambien 5MG (*)] 10 mg PO HS PRN tab 12/12/17 [Last Taken Unknown] Discharge Medications: Refer to the Discharge Home Medication list for PRN reason. - Orders Services needed: Physical Therapy, Occupational Therapy Isolation Type: None Diet Recommendation: no restrictions on diet Diet Texture: Regular Texture Diet Additional Instructions: recommend slowly weaning off the librium - Follow Up Care Current Providers and Referrals: NONE *PRIMARY CARE P,. [Unknown] - As per Instructions
--- NOTE | 2017-12-12 15:16 | ASMTCMCOM ---
CM Note CM Note Notes: [facility] has insurance authorization. Pt medically stable for d/c. Orders sent in [employer]. Vicky with [facility] scheduled wc transport for 1729. Pt dghtr Nancy updated. DIONTE Rodriguez to call report. Pt wants to d/c from [facility] to an alcohol rehab in [place] he knows of. [facility] and pt erniehtfrandy Cruz (she is aware) can help facilitate his transition there. Date Signed: 12/12/2017 03:16 PM Electronically Signed By:EMMA Jennings
[2017-12-12] MEDS: amLODIPine BESYLATE 5 MG TAB PO SCH (15:40)
[2017-12-12] MEDS: PROPRANOLOL SR 60 MG CAP PO SCH (15:41)
[2017-12-12 15:42] VITALS: BP 111/74
--- NOTE | 2017-12-12 15:43 | ASMTLACE ---
PRANAY Length of stay for Answers: 7-13 days current admission Acuity / Level of Answers: Yes Care: Did the patient have an inpatient admission? Comorbidities - select Answers: Other Notes: HTN all that apply # of Emergency department Answers: 1-2 visits in the last 6 months Social determinants Answers: History of substance abuse (ETOH, street drugs, prescription drugs, etc.) Mental health diagnosis (anxiety, depression, pers onality disorders, etc.) Score: 16 Date Signed: 12/12/2017 03:42 PM Electronically Signed By:EMMA Jennings
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
--- NOTE | 2017-12-13 09:09 | ASDISCHSUM ---
Discharge Information Plan Status:SNF Medically Cleared to Leave: Discharge Date:12/12/2017 05:51 PM CM D/C Disposition:Correction Facility ADT D/C Disposition:Correction Facility Projected Discharge Date:12/08/2017 11:00 AM Transportation at D/C:Wheelchair Van Discharge Delay Reason: Follow-Up Date:12/08/2017 11:00 AM Discharge Slot: Final Diagnosis: Placement Information Referral Type:*Half-Way/SNF Referral ID:[id number] Provider Name:[facility] Address 1:[address] Address 2: City:[place] Selection Factors: State:[place] Patient Contact Information Contact Name:BUFFY Relationship: Address:[address] Phone: City:[place] Alternate Phone: State/Zip Code:[place] [address] Email: Financial Information Financial Class:HMO and PPO Plans Primary Plan Desc: OUT OF STATE PPO Primary Plan Number:[id number] Secondary Plan Desc: Secondary Plan Number: Assessment Information LACE LACE Length of stay for Answers: 7-13 days current admission Acuity / Level of Answers: Yes Care: Did the patient have an inpatient admission? Comorbidities - select Answers: Other Notes: HTN all that apply # of Emergency department Answers: 1-2 visits in the last 6 months Social determinants Answers: History of substance abuse (ETOH, street drugs, prescription drugs, etc.) Mental health diagnosis (anxiety, depression, pers onality disorders, etc.) Score: 16 Date Signed: 12/12/2017 03:42 PM Electronically Signed By:EMMA Jennings [facility] Initial CM Assessment Living Arrangements What is your living Answers: With Spouse arrangement? Who do you live with? Type Of Residence What kind of residence do Answers: House you live in? Discharge Plan Comments Coordination Status Comments Notes: Pt is a 57 y/o man admitted for etoh withdrawals. Pt has a hx of etoh seizures. OT is recommending SNF. OT reports that pt is tremulous and hallucinating. PT is pending. Needs are TBD at this time. CM will f/u once pt is more stable. Plan: TBD Date Signed: 12/02/2017 10:30 AM Electronically Signed By:DARREN Branham [facility] Progress Note CM Note CM Note Notes: Attempted to speak with patient about discharge planning, but the conversation was limited by his pain and slow processing speed. We touched briefly on PT's recommendation for SNF, but I'm not sure if patient fully grasped what SNF is. He mentioned that his is at the [facility] in [place] receiving tx for esophageal cancer, and that he needs to help her. I encouraged him to focus on his own treatment. I asked if I could call his daughter Aniya, and he said she is on a flight. Upon further investigation, he said that both of his daughters are on flights to [place] right now. They will arrive tonight. I suggested we all meet tomorrow to discuss discharge planning and goals. He agreed. Spiritual care notified and will follow along with us. Date Signed: 12/05/2017 11:26 AM Electronically Signed By:Hannah Wilson RN [facility] CM Progress Note CM Note CM Note Notes: Patients two daughters and (ex?) Yadira showed up at hospital. I explained to them PT/OT recommendation for SNF but also that the more relevant (and chronic) problem of patient's alcoholism is also being considered in discharge planning. They agreed that he needs both physical and psychiatric rehab, ideally in the same setting. I explained that I wasnt' sure a place like that existed but that we could explore d/c to SNF with subsequent direct d/c to inpatient behavioral health. Patient's daughter Aniya (who seems to be the spokesperson in the family) desires this plan. She requested a list of inpatient behavioral health facilities. I found one on the [employer] website; we will bring this as well as a list of SNF to the family meeting. Martha Giles will confirm an 11am family meeting with Aniya tomorrow. They will call patient's other daughter during the meeting. Case Management will assist. Date Signed: 12/05/2017 03:18 PM Electronically Signed By:Hannah Wilson RN [facility] JERRY Progress Note CM Note CM Note Notes: Attended family meeting with spiritual care, pt's daughter Aniya and her sister Cassie and mother Yadira (pt's exwife) were on the phone. Pt is still not functioning well and was quite tremulous and tearful throughout meeting. We discussed several options regarding rehab for his physical recovery and treatment for his alcoholism. Pt was quick to point out that his previous 3 rehab stays "didn't work." It was suggested that perhaps a residential program would be more appropriate when he is physically healthier. Pt was encouraged to focus on getting better here in the hospital and d/c options could continue to be discussed. It is hard to know at this time how much progress he will make and whether inpt rehab or SNF would be recommended. Spoke with Swapna at [facility] as pt had been there last December. Pt is having difficulty focusing on himself and appears more concerned at this time with whether his Isabella still wants a divorce. Isabella was not supportive of d/c options last December and is currently struggling with her own health issues. His exwife and daughters are very supportive and encouraging. As pt clears, further discussions can be pursued. Date Signed: 12/06/2017 05:10 PM Electronically Signed By:EMMA Villarreal [facility] CM Progress Note CM Note CM Note Notes: 12/07/2017 Case Management Note Met w/pt, daughter Aniya Murillo [phone] (designated spokesperson), daughter Lucía Murillo [phone] and ex Yadira Murillo. Pt is to Isabella Murillo who is currently under treatment at the [facility] is [place]. Isabella holds the primary MDPOA however, she is not decisional at this time. Aniya and Lucía or co MDPOAs and are speaking on pt behalf at this time. Discussed various discharge options for pt. Faxed referrals to [facility]: [facility], [facility], [facility] and [facility] rehab. Attempted to contact [facility] to obtain a list of inpatient drug rehab facilities covered under insurance. It was after hours, unable to obtain information. Explored [employer] website and gave Aniya a list of behavioral health centers. Provided info on the [facility] and encouraged family to explore tahir based inpatient drug cessation programs as an alternative. Family wants a 6 - 9 month program, a duration that is unlikely to be covered by insurance. Aniya is out of town from Saturday to Saturday and is hoping to have a discharge plan secured prior to leaving. Explained that requested info from [employer] is not accessible until normal business hours during the week. Case Management d/c poc: to be determined. Case Management to follow. Date Signed: 12/07/2017 04:51 PM Electronically Signed By:Jessica Eason RN [facility] Progress Note CM Note CM Note Notes: Pt's Isabella visited pt today. Apparently she was discharged from the [facility] this morning and got on a plane for [place]. CM did not see pt or family today. Per assembler carbon brushes, pt's dtr Aniya has canceled her weeklong trip to be here this week to "ensure pt gets to the right [facility] treatment facility." She also wants to assume health care proxy decision making - Isabella is the designated proxy, copy is in pt's chart. Previously, pt's exwife and daughters were saying Isabella is "nondecisional." PT/OT are recommending SNF d/c at this time. [facility] has accepted pt. Date Signed: 12/08/2017 03:56 PM Electronically Signed By:EMMA Villarreal [facility] Progress Note CM Note CM Note Notes: Attempted to meet with patient twice today but he was on the phone. Will try again tomorrow. CM will follow. Date Signed: 12/09/2017 04:45 PM Electronically Signed By:Tabitha Fernandes LCSW [facility] CM Progress Note CM Note CM Note Notes: Pt agreeable to SNF d/c, chooses [facility]. [facility] has started insurance authorization. D/c plan of care: [facility] when medically stable. Date Signed: 12/10/2017 02:24 PM Electronically Signed By:EMMA Jennings [facility] CM Progress Note CM Note CM Note Notes: Pt medically stable for d/c, insurance auth still not obtained by for [facility]. Date Signed: 12/11/2017 04:42 PM Electronically Signed By:EMMA Jennings [facility] CM Progress Note CM Note CM Note Notes: [facility] has insurance authorization. Pt medically stable for d/c. Orders sent in [employer]. Vicky with [facility] scheduled wc transport for [id number]. Pt bassem padilla. DIONTE Rodriguez to call report. Pt wants to d/c from [facility] to an alcohol rehab in [place] he knowJenny and pt sreekanthr Nancy (she is aware) can help facilitate his transition there. Date Signed: 12/12/2017 03:16 PM Electronically Signed By:EMMA Jennings Intervention Information
== END 2017-12-12 17:51 | DRG 897 ==
LOC: F3E 22:42 → F2N 12-02 14:19 → F3N 12-05 17:57
PROVIDERS: ADMIT Internal Medicine; ATTEND Internal Medicine
PROC: 0S9D3ZX Drainage of Left Knee Joint, Percutaneous Approach, Diagnostic (ICD-10-PCS; principal; 2017-12-05)
PROC: 0S9C3ZX Drainage of Right Knee Joint, Percutaneous Approach, Diagnostic (ICD-10-PCS; principal; 2017-12-05)
DX: F10.231 Alcohol dependence with withdrawal delirium (principal); M10.9 Gout, unspecified; N17.9 Acute kidney failure, unspecified; E87.1 Hypo-osmolality and hyponatremia; R19.7 Diarrhea, unspecified; T50.4X5A Adverse effect of drugs affecting uric acid metabolism, initial encounter; R33.9 Retention of urine, unspecified; K70.10 Alcoholic hepatitis without ascites; E87.6 Hypokalemia; E83.42 Hypomagnesemia; D69.6 Thrombocytopenia, unspecified; I10 Essential (primary) hypertension; F32.9 Major depressive disorder, single episode, unspecified; G47.33 Obstructive sleep apnea (adult) (pediatric); Z23 Encounter for immunization
CPT/HCPCS: 96374; 97110-GO; 97110-GP; 97112-GP; 97116-GP; 97161-GP; 97165-GO; 97530-GO; 97530-GP; 97535-GO; G0009; G0480; J1630; J1650; J2060; J3411; J3475; J7512

== ENCOUNTER 2018-04-22 09:01 | Emergency (ER) | payer BC ==
[2018-04-22] MEDS ORDERED: LORazepam 2 MG/ML INJ IVP PRN (09:20)
[2018-04-22] MEDS ORDERED: LORazepam 1 MG TAB PO PRN (09:20)
[2018-04-22] MEDS ORDERED: NS 1,000 ML IV ONE (09:20)
--- NOTE | 2018-04-22 09:20 | EDPHY ---
H & P Stated Complaint: etoh withdrawl Source: Patient, Old records Exam Limitations: No limitations - Personal History Current Tetanus/Diphtheria Vaccine: Unsure Current Tetanus Diphtheria and Acellular Pertussis (TDAP): Unsure Tetanus Vaccine Date: unknown - Medical/Surgical History Hx Asthma: No Hx Chronic Respiratory Disease: No Hx Diabetes: No Hx Cardiac Disease: No Hx Renal Disease: No Hx Cirrhosis: No Hx Alcoholism: Yes Hx HIV/AIDS: No Hx Splenectomy or Spleen Trauma: No Other PMH: ETOH withdrawl seizure 12/2016, alcoholism, intracranial hemorrhage, Depression,HTN, two concussions. Perforated intestinal ulcer, gout, IVELISSE with CPAP - Social History Smoking Status: Never smoked Time Seen by Provider: 04/22/18 09:16 HPI/ROS: HPI: This is a 58-year-old male who presents with Chief Complaint: Alcohol withdrawal Location: Body Quality: Shakiness Duration: 48 hr Signs and Symptoms: no fever, + nausea, no vomiting, no hematemesis, no blood in stool, no abdominal bloating, no diarrhea, no back pain, no urinary symptoms , no testicular/groin pain, no indigestion, no chest pain, no shortness of breath Timing: Acute on chronic Severity: Moderate Context: Patient has a history of alcoholism presents accompanied by a good friend with complaints of alcohol withdrawal symptoms including shakiness, nausea, anxiety. Denies any hallucination, vomiting. Patient reports that his recently in believes that this is the cause of his relapse. He politely declines [facility] to the [facility]. He does accept a referral to [facility]. He denies any suicidal ideation, homicidal ideation. Denies any drug use. Modifying Factors: None Comment: ROS: A comprehensive 10 system review of systems is otherwise negative aside from elements mentioned in the history of present illness. MEDICAL/SURGICAL/SOCIAL HISTORY: Medical history: ETOH withdrawal seizure 12/2016, alcoholism, intracranial hemorrhage, Depression, HTN, two concussions Perforated intestinal ulcer, gout, IVELISSE with CPAP Surgical history: Denies Social history: Never smoked. . Retired. Family history noncontributory. CONSTITUTIONAL: Diaphoretic, anxious, middle-aged white male, awake and alert, no obvious distress HEENT: Atraumatic and normocephalic, PERRL, EOMI. Nares patent; no rhinorrhea; no nasal mucosal edema. Tympanic membranes clear. Oropharynx clear, no exudate and moist pink mucosa. Airway patent. No lymphadenopathy. No meningismus. Cardiovascular: Normal S1/S2, regular rate, regular rhythm, without murmur rub or gallop. PULMONARY/CHEST: Symmetrical and nontender. Clear to auscultation bilaterally. Good air movement. No accessory muscle usage. ABDOMEN: Soft, nondistended, nontender, no rebound, no guarding, no peritoneal signs, no masses or organomegaly. No CVAT. EXTREMITIES: 2/2 pulses, strength 5/5, no deformities, no clubbing, no cyanosis or edema. NEUROLOGICAL: no focal neuro deficits. GCS 15. Mild hand tremors noted. SKIN: Warm and dry, no erythema. no rash. Good capillary refill. PSYCH: Good eye contact, so flight of ideas,organized thought process, fair insight and judgment, no auditory hallucinations, no visual hallucinations, no suicidal ideation with a plan, no homicidal ideation, no paranoia ([place]) Constitutional: Initial Vital Signs Temperature (C) 36.6 C 04/22/18 09:07 Heart Rate 77 04/22/18 09:07 Respiratory Rate 16 04/22/18 09:07 Blood Pressure 147/80 H 04/22/18 09:07 O2 Sat (%) 92 04/22/18 09:07 O2 Delivery Mode Room Air Allergies/Adverse Reactions: No Known Allergies Allergy (Verified 04/22/18 09:05) Home Medications: Medication Instructions Recorded Gabapentin [Neurontin] 600 mg PO HS #30 tablet 01/29/17 Cetirizine [ZyrTEC 10 mg (*)] 10 mg PO DAILY 05/11/17 Citalopram [CeleXA 20 MG] 20 mg PO DAILY #30 tab 05/14/17 Pantoprazole Sodium [Protonix 40mg 40 mg PO DAILY #30 tab 05/14/17 (*)] Propranolol Sr [Inderal LA 60mg 120 mg PO DAILY cap 05/19/17 (*)] Allopurinol [Allopurinol 100 MG 100 mg PO DAILY 12/02/17 (*)] Multivitamins [Multivitamin (*)] 1 each PO DAILY 12/02/17 amLODIPine BESYLATE [Norvasc 5 mg 5 mg PO DAILY 12/02/17 (*)] buPROPion SR [Wellbutrin 150mg SR 150 mg PO BID 12/02/17 (*)] celeCOXIB [Celebrex (*)] 200 mg PO DAILY 12/02/17 Acetaminophen [Tylenol 325mg (*)] 650 mg PO Q4HRS PRN tab 12/11/17 traMADol [Ultram 50 mg (*)] 50 mg PO Q6 PRN tab 12/11/17 Zolpidem Tartrate [Ambien 5MG (*)] 10 mg PO HS PRN tab 12/12/17 Medical Decision Making ED Course/Re-evaluation: Vital signs reviewed and stable upon arrival. Initial CIWA=10. Will obtain IV access and start alcohol withdrawal protocol. Given IV Ativan 2 mg and 50 mg of Librium p.o. Along with 1 L normal saline. Patient does not meet M1 hold or detainer criteria. 0929: Case management consult. She is to get appointments with [facility] and PCP, Dr. Larry's colleague at 2 pm. Has no support system to monitor him at home to give Librium take home. CM investigating whether qualified for inpatient alcohol treatment programs. Patient politely declined [facility] as unable to have cell phone. Neighbor has contract for safety and has arrived in the emergency room to take patient home and administer Librium prepack. 1045: CIWA 2. Patient has refused to go to [facility], and [facility]. Neighbor here to contract for patient safety and administer Librium at home. Close follow-up with primary care provider and [facility]. Librium prepack given. No signs of seizure/coma/ delirium. This patient was seen under the supervision of my secondary supervising physician. I evaluated care for this patient independently. Discussed this patient with Dr. Phoenix. (Ruth Smith) I did not see this patient while he was in the emergency department. However his care was discussed with the PA while the patient was in the department. I agree with treatment plan and management (Ronnie Phoenix) Differential Diagnosis: Differential diagnosis includes but is not limited to alcohol intoxication, alcohol withdrawal, alcohol withdrawal seizures, delirium tremens. (Ruth Smith) - Data Points Medications Given: Discontinued Medications Chlordiazepoxide (Librium 25 Mg Prepack#6) 1 btl TAKEHOME EDNOW ONE Stop: 04/22/18 10:49 Last Admin: 04/22/18 11:17 Dose: 1 btl Chlordiazepoxide HCl (Librium) 50 mg PO EDNOW ONE Stop: 04/22/18 09:25 Last Admin: 04/22/18 09:35 Dose: 50 mg Sodium Chloride (Ns) 1,000 mls @ 0 mls/hr IV EDNOW ONE; Wide Open PRN Reason: Protocol Stop: 04/22/18 09:21 Last Admin: 04/22/18 09:34 Dose: 1,000 mls Lorazepam (Ativan Injection) 0 mg IVP Q1H PRN; Protocol PRN Reason: Alcohol Withdrawal w/IV access Stop: 04/22/18 21:20 Last Admin: 04/22/18 09:35 Dose: 2 mg Departure - Departure Disposition: Home, Routine, Self-Care Clinical Impression: Alcoholism /alcohol abuse, Alcohol withdrawal syndrome without complication Condition: Good Instructions: Chlordiazepoxide (By mouth), Abuse of Alcohol (ED), Alcohol Withdrawal (ED) Additional Instructions: You have an appointment with Dr. Hernandez at [facility] ([phone]) on 04/24/18 at 2:30pm. Please call their office if you need to reschedule. Take Librium 1-2 tabs every 4-6 hours as needed for alcohol withdrawal symptoms. Take Benadryl 25-50 mg every 4-6 hours as needed for nausea, vomiting. Refrain from drinking alcohol. You are welcome to go to the [facility] for [facility] detox. Referrals: Ronal Daugherty MD [Primary Care Provider] - As per Instructions
[2018-04-22] MEDS ORDERED: chlordiazePOXIDE 25 MG CAP PO ONE (09:24)
[2018-04-22 10:43] VITALS: BP 148/99
[2018-04-22] MEDS ORDERED: CHLORDIAZEPOXIDE 25MG PREPK#6 BTL TAKEHOME ONE (10:48)
--- NOTE | 2018-04-22 12:44 | ASMTCMCOM ---
CM Note CM Note Notes: Pt presented to the ED through triage for ETOH withdrawals. Pt has not been seen at [facility] since his admission from 12/01-12/12/17 for ETOH withdrawal (see those CM Reports for additional info if needed). Pt states he recently relapsed w/ ETOH abuse because his ex-, Isabella Payne about 1 1/2 wks ago. Pt was still very close to Isabella and involved in her care (Isabella had esophageal cancer). Pt is accompanied by his friend Evette Currie in the ED. Spoke with patient and Evette (w/pt's permission) at bedside. Pt requests a mental health referral. Pt states he used to be seen regularly by Ayden Oates [employer] ([phone]) but it has been a few months; pt states he would like to re-establish services w/Mr Oates. This CM called Mr Oates and left a voicemail but have not heard back yet. Pt states he will call Mr Oates himself and follow-up on his own. CM provided pt information on [facility] and also [facility], specifically [facility] and their Crisis Hotline. Pt's PCP is Dr Daugherty at [facility]. Spoke w/Parris Jackson, RN Infection Control Coordinator at [facility] ([phone]); pt's last visit was 04/14 w/Dr Turcios due to Dr Daugherty being out of the office for awhile. Lakeisha was able to get pt an appt w/Dr Hernandez on 04/24/18 at 2:30pm and said they would also have their Behavioral Health Specialist, Jaycee Browning ([phone]) see pt during that visit. Pt states he can make it the appt and is appreciative of assistance. Pt is ready for discharge and was given the options of: d/c'ing to Withdrawal Mgmt Detox w/Librium, home w/someone to administer Librium, home w/o Librium if he cannot find a friend to administer it (his friend Evette is not able to stay w/pt), or this CM could look into getting pt into [facility]. Pt initially refused to go to Detox, could not get a hold of any friends to stay w/him and administer Librium, does not want to go to [facility], and did not want to go home without Librium. Eventually pt accepted the offer of going to Detox w/Librium. Evette says she can transport him; Librium pre-pack given to Evette to give to detox staff. This CM called Detox and gave report. CM available for further assistance if needed. Date Signed: 04/22/2018 12:44 PM Electronically Signed By:Margarita Morrissey RN
== END 2018-04-22 11:19 | disposition home or self-care (01) ==
DX: F10.239 Alcohol dependence with withdrawal, unspecified (principal); I10 Essential (primary) hypertension; F32.9 Major depressive disorder, single episode, unspecified
CPT/HCPCS: 96374; J2060